=== PATIENT | male | born 1945 | race Caucasian/White ===

== ENCOUNTER 2019-08-13 18:23 | Inpatient (IN) | payer MEDICARE, OTHER ==
[~2019-08-13] VITALS: Ht 170.2 cm; Wt 92.8 kg
--- OUTSIDE RECORDS SUMMARY | 2019-08-13 18:30 | XMS REPORT ---
Author Author [facility] Address Unknown Phone Unavailable Care Team Providers Care Tube Buffer Name Role Phone Vincent LEYVA Unavailable Unavailable STEVEN CHAPPELL Unavailable Unavailable Problems This patient has no known problems. Allergies, Adverse Reactions, Alerts This patient has no known allergies or adverse reactions. Medications This patient has no known medications. Encounters Start Date/Time End Date/Time Encounter Type Admission Type Attending Clinicians Care Facility Care Department Encounter ID 2019-07-30 14:35:00 2019-07-30 14:35:00 Outpatient [facility] [id number] Results Test Description Test Time Test Comments Text Results Atomic Results Result Comments POCT-GLUCOSE METER 2019-07-14 13:32:00 POC-GLUCOSE METER (BEAKER) (test iakb=2021) 104 mg/dL 70-110 : TESTED AT [address], [address]: Landscape Designer/Geriatric Nurse Practitioner [id number]=[id number] for YANNA PACK POCT-GLUCOSE [id number] 08:18:00* Test Item Value Reference Range Comments POC-GLUCOSE METER (BEAKER) (test rldy=5479) 101 mg/dL 70-110 : TESTED AT [address], [address]: Landscape Designer/Geriatric Nurse Practitioner [id number] for YANNA PACK CBC W/PLT COUNT & AUTO [id number] 06:10:00* Test Item Value Reference Range Comments WHITE BLOOD CELL COUNT (BEAKER) (test zqnm=097) 14.7 K/ L 3.5-10.5 RED BLOOD CELL COUNT (BEAKER) (test opok=302) 3.64 M/ L 4.63-6.08 HEMOGLOBIN (BEAKER) (test yviz=762) 11.2 GM/DL 13.7-17.5 HEMATOCRIT (BEAKER) (test ezwa=246) 34.1 % 40.1-51.0 MEAN CORPUSCULAR VOLUME (BEAKER) (test rsxa=802) 93.7 fL 79.0-92.2 MEAN CORPUSCULAR HEMOGLOBIN (BEAKER) (test iswi=089) 30.8 pg 25.7-32.2 MEAN CORPUSCULAR HEMOGLOBIN CONC (BEAKER) (test zdlg=448) 32.8 GM/DL 32.3-36.5 RED CELL DISTRIBUTION WIDTH (BEAKER) (test zxup=310) 12.7 % 11.6-14.4 PLATELET COUNT (BEAKER) (test vzrn=025) 175 K/CU MM 150-450 MEAN PLATELET VOLUME (BEAKER) (test ytrt=638) 12.4 fL 9.4-12.4 NUCLEATED RED BLOOD CELLS (BEAKER) (test agtp=868) 0 /100 WBC 0-0 NEUTROPHILS RELATIVE PERCENT (BEAKER) (test xgbe=733) 89 % LYMPHOCYTES RELATIVE PERCENT (BEAKER) (test wpgr=510) 5 % MONOCYTES RELATIVE PERCENT (BEAKER) (test lmas=194) 4 % EOSINOPHILS RELATIVE PERCENT (BEAKER) (test upzi=887) 0 % BASOPHILS RELATIVE PERCENT (BEAKER) (test iloi=929) 0 % NEUTROPHILS ABSOLUTE COUNT (BEAKER) (test gjmk=322) 13.09 K/ L 1.78-5.38 LYMPHOCYTES ABSOLUTE COUNT (BEAKER) (test knai=515) 0.76 K/ L 1.32-3.57 MONOCYTES ABSOLUTE COUNT (BEAKER) (test ylfv=438) 0.53 K/ L 0.30-0.82 EOSINOPHILS ABSOLUTE COUNT (BEAKER) (test etxm=292) 0.00 K/ L 0.04-0.54 BASOPHILS ABSOLUTE COUNT (BEAKER) (test czel=430) 0.01 K/ L 0.01-0.08 IMMATURE GRANULOCYTES-RELATIVE PERCENT (BEAKER) (test pfkt=6230) 2 % 0-1 [id number] 05:47:00* Test Item Value Reference Range Comments MAGNESIUM (BEAKER) (test hgpq=692) 2.1 mg/dL 1.6-2.6 BASIC METABOLIC [id number] 05:47:00* Test Item Value Reference Range Comments SODIUM (BEAKER) (test xpxk=744) 138 meq/L 136-145 POTASSIUM (BEAKER) (test psan=820) 5.0 meq/L 3.5-5.1 CHLORIDE (BEAKER) (test irmt=830) 106 meq/L 98-107 CO2 (BEAKER) (test qgzk=293) 25 meq/L 22-29 BLOOD UREA NITROGEN (BEAKER) (test qrmr=624) 34 mg/dL 7-21 CREATININE (BEAKER) (test qxdi=929) 1.25 mg/dL 0.57-1.25 GLUCOSE RANDOM (BEAKER) (test daiq=850) 131 mg/dL 70-105 CALCIUM (BEAKER) (test xplm=726) 8.2 mg/dL 8.4-10.2 EGFR (BEAKER) (test uyad=6352) 57 mL/min/1.73 sq m ESTIMATED GFR IS NOT ACCURATE CREATININE CLEARANCE IN PREDICTING GLOMERULAR FILTRATION RATE. ESTIMATED GFR IS NOT APPLICABLE FOR DIALYSIS PATIENTS. POCT-GLUCOSE [id number] 22:26:00* Test Item Value Reference Range Comments POC-GLUCOSE METER (BEAKER) (test jmfr=3394) 154 mg/dL 70-110 : TESTED AT [address], [address]: Landscape Designer/Geriatric Nurse Practitioner [id number] for Msibi, Mncedisi POCT-GLUCOSE [id number] 18:10:00* Test Item Value Reference Range Comments POC-GLUCOSE METER (BEAKER) (test hnqt=0271) 113 mg/dL 70-110 : TESTED AT [address], [address]: Landscape Designer/Geriatric Nurse Practitioner [id number] for Ralph, Julia POCT-GLUCOSE [id number] 12:59:00* Test Item Value Reference Range Comments POC-GLUCOSE METER (BEAKER) (test rccz=7544) 128 mg/dL 70-110 : TESTED AT [address], [address]: Landscape Designer/Geriatric Nurse Practitioner PB=[id number] for Ralph, Julia POCT-GLUCOSE [id number] 08:03:00* Test Item Value Reference Range Comments POC-GLUCOSE METER (BEAKER) (test ouki=0510) 126 mg/dL 70-110 : TESTED AT [address], [address]: Landscape Designer/Geriatric Nurse Practitioner VM=[id number] for Ralph, Julia [id number] 05:39:00* Test Item Value Reference Range Comments POTASSIUM (BEAKER) (test mtpw=766) 5.2 meq/L 3.5-5.1 [id number] 05:39:00* Test Item Value Reference Range Comments MAGNESIUM (BEAKER) (test jftv=281) 2.1 mg/dL 1.6-2.6 RepeatBASIC METABOLIC [id number] 05:39:00* Test Item Value Reference Range Comments SODIUM (BEAKER) (test zjxg=770) 138 meq/L 136-145 POTASSIUM (BEAKER) (test sqnt=410) 5.2 meq/L 3.5-5.1 CHLORIDE (BEAKER) (test mkar=519) 106 meq/L 98-107 CO2 (BEAKER) (test ouaj=969) 27 meq/L 22-29 BLOOD UREA NITROGEN (BEAKER) (test bkti=167) 38 mg/dL 7-21 CREATININE (BEAKER) (test fsgc=527) 1.26 mg/dL 0.57-1.25 GLUCOSE RANDOM (BEAKER) (test czel=480) 128 mg/dL 70-105 CALCIUM (BEAKER) (test dewy=601) 8.3 mg/dL 8.4-10.2 EGFR (BEAKER) (test xles=1215) 56 mL/min/1.73 sq m ESTIMATED GFR IS NOT ACCURATE CREATININE CLEARANCE IN PREDICTING GLOMERULAR FILTRATION RATE. ESTIMATED GFR IS NOT APPLICABLE FOR DIALYSIS PATIENTS. RepeatCBC W/PLT COUNT & AUTO [id number] 05:07:00* Test Item Value Reference Range Comments WHITE BLOOD CELL COUNT (BEAKER) (test wgmb=449) 14.5 K/ L 3.5-10.5 RED BLOOD CELL COUNT (BEAKER) (test qcmq=445) 3.49 M/ L 4.63-6.08 HEMOGLOBIN (BEAKER) (test mykv=494) 10.9 GM/DL 13.7-17.5 HEMATOCRIT (BEAKER) (test ggxl=916) 33.4 % 40.1-51.0 MEAN CORPUSCULAR VOLUME (BEAKER) (test ltyj=099) 95.7 fL 79.0-92.2 MEAN CORPUSCULAR HEMOGLOBIN (BEAKER) (test pzxy=691) 31.2 pg 25.7-32.2 MEAN CORPUSCULAR HEMOGLOBIN CONC (BEAKER) (test nbpn=934) 32.6 GM/DL 32.3-36.5 RED CELL DISTRIBUTION WIDTH (BEAKER) (test fhmw=375) 12.9 % 11.6-14.4 PLATELET COUNT (BEAKER) (test romz=071) 162 K/CU MM 150-450 MEAN PLATELET VOLUME (BEAKER) (test fsky=858) 12.3 fL 9.4-12.4 NUCLEATED RED BLOOD CELLS (BEAKER) (test dqll=466) 0 /100 WBC 0-0 NEUTROPHILS RELATIVE PERCENT (BEAKER) (test shvl=015) 89 % LYMPHOCYTES RELATIVE PERCENT (BEAKER) (test hbjt=921) 5 % MONOCYTES RELATIVE PERCENT (BEAKER) (test abhr=242) 4 % EOSINOPHILS RELATIVE PERCENT (BEAKER) (test zltm=745) 0 % BASOPHILS RELATIVE PERCENT (BEAKER) (test ywbl=942) 0 % NEUTROPHILS ABSOLUTE COUNT (BEAKER) (test scsr=176) 12.88 K/ L 1.78-5.38 LYMPHOCYTES ABSOLUTE COUNT (BEAKER) (test vtcu=096) 0.76 K/ L 1.32-3.57 MONOCYTES ABSOLUTE COUNT (BEAKER) (test qlfv=833) 0.58 K/ L 0.30-0.82 EOSINOPHILS ABSOLUTE COUNT (BEAKER) (test qiel=378) 0.00 K/ L 0.04-0.54 BASOPHILS ABSOLUTE COUNT (BEAKER) (test lfbz=037) 0.02 K/ L 0.01-0.08 IMMATURE GRANULOCYTES-RELATIVE PERCENT (BEAKER) (test qvxf=6212) 2 % 0-1 POCT-GLUCOSE [id number] 03:30:00* Test Item Value Reference Range Comments POC-GLUCOSE METER (BEAKER) (test iysx=5142) 124 mg/dL 70-110 : TESTED AT [facility] [address] [facility], [address]: Landscape Designer/Geriatric Nurse Practitioner ZB=[id number] for SONYA ALCANTAR POCT-GLUCOSE [id number] 17:37:00* Test Item Value Reference Range Comments POC-GLUCOSE METER (BEAKER) (test scen=5466) 131 mg/dL 70-110 : TESTED AT [facility] [address] [facility], [address]: Landscape Designer/Geriatric Nurse Practitioner [id number] for Julia Rosas POCT-GLUCOSE [id number] 12:27:00* Test Item Value Reference Range Comments POC-GLUCOSE METER (BEAKER) (test jxpm=9801) 117 mg/dL 70-110 : TESTED AT [facility] [address] [facility], [address]: Landscape Designer/Geriatric Nurse Practitioner [id number] for Julia Rosas RAD, CHEST, 1 VIEW, NON [id number] 10:39:00Reason for exam:->pneumoniaShould this be performed at the bedside?->YesFINAL REPORT CLINICAL HISTORY: pneumonia TECHNIQUE: 1 view of the chest. COMPARISON: 07/06/2019 IMPRESSION: Diffuse left asymmetric interstitial lung opacities are similar appearing. There is no new lobar consolidation or significant pleural fluid. The cardiomediastinal silhouette is within normal limits for size. Signed: Roxann Noeport Verified Date/Time: 07/12/2019 10:39:42 Reading Location: [facility] Radiology Reading Room -GLUCOSE [id number] 09:07:00* Test Item Value Reference Range Comments POC-GLUCOSE METER (BEAKER) (test ksns=4337) 114 mg/dL 70-110 : TESTED AT [facility] [address] [facility], [address]: Landscape Designer/Geriatric Nurse Practitioner [id number] for Julia Rosas [id number] 07:29:00* Test Item Value Reference Range Comments MAGNESIUM (BEAKER) (test oznz=018) 2.2 mg/dL 1.6-2.6 BASIC METABOLIC [id number] 07:29:00* Test Item Value Reference Range Comments SODIUM (BEAKER) (test puya=394) 140 meq/L 136-145 POTASSIUM (BEAKER) (test btzh=698) 5.5 meq/L 3.5-5.1 CHLORIDE (BEAKER) (test htks=377) 108 meq/L 98-107 CO2 (BEAKER) (test tzsm=876) 26 meq/L 22-29 BLOOD UREA NITROGEN (BEAKER) (test upxq=345) 39 mg/dL 7-21 CREATININE (BEAKER) (test pmft=230) 1.24 mg/dL 0.57-1.25 GLUCOSE RANDOM (BEAKER) (test qacs=807) 115 mg/dL 70-105 CALCIUM (BEAKER) (test frbr=472) 8.5 mg/dL 8.4-10.2 EGFR (BEAKER) (test smin=0226) 57 mL/min/1.73 sq m ESTIMATED GFR IS NOT ACCURATE CREATININE CLEARANCE IN PREDICTING GLOMERULAR FILTRATION RATE. ESTIMATED GFR IS NOT APPLICABLE FOR DIALYSIS PATIENTS. CBC W/PLT COUNT & AUTO [id number] 06:57:00* Test Item Value Reference Range Comments WHITE BLOOD CELL COUNT (BEAKER) (test pcsb=943) 18.3 K/ L 3.5-10.5 RED BLOOD CELL COUNT (BEAKER) (test siga=066) 3.58 M/ L 4.63-6.08 HEMOGLOBIN (BEAKER) (test jriz=594) 11.1 GM/DL 13.7-17.5 HEMATOCRIT (BEAKER) (test fvcj=767) 35.1 % 40.1-51.0 MEAN CORPUSCULAR VOLUME (BEAKER) (test afqt=406) 98.0 fL 79.0-92.2 MEAN CORPUSCULAR HEMOGLOBIN (BEAKER) (test dusp=364) 31.0 pg 25.7-32.2 MEAN CORPUSCULAR HEMOGLOBIN CONC (BEAKER) (test xfhj=942) 31.6 GM/DL 32.3-36.5 RED CELL DISTRIBUTION WIDTH (BEAKER) (test tebo=183) 12.8 % 11.6-14.4 PLATELET COUNT (BEAKER) (test ksml=916) 149 K/CU MM 150-450 MEAN PLATELET VOLUME (BEAKER) (test whjp=451) 12.5 fL 9.4-12.4 NUCLEATED RED BLOOD CELLS (BEAKER) (test zkxh=336) 0 /100 WBC 0-0 NEUTROPHILS RELATIVE PERCENT (BEAKER) (test nfzu=114) 88 % LYMPHOCYTES RELATIVE PERCENT (BEAKER) (test jais=033) 6 % MONOCYTES RELATIVE PERCENT (BEAKER) (test mcpi=265) 5 % EOSINOPHILS RELATIVE PERCENT (BEAKER) (test dbua=042) 0 % BASOPHILS RELATIVE PERCENT (BEAKER) (test lqsq=339) 0 % NEUTROPHILS ABSOLUTE COUNT (BEAKER) (test eyzy=570) 16.01 K/ L 1.78-5.38 LYMPHOCYTES ABSOLUTE COUNT (BEAKER) (test pocj=924) 1.10 K/ L 1.32-3.57 MONOCYTES ABSOLUTE COUNT (BEAKER) (test ljyj=058) 0.82 K/ L 0.30-0.82 EOSINOPHILS ABSOLUTE COUNT (BEAKER) (test caab=701) 0.00 K/ L 0.04-0.54 BASOPHILS ABSOLUTE COUNT (BEAKER) (test vivu=171) 0.03 K/ L 0.01-0.08 IMMATURE GRANULOCYTES-RELATIVE PERCENT (BEAKER) (test pxer=5410) 2 % 0-1 POCT-GLUCOSE [id number] 22:36:00* Test Item Value Reference Range Comments POC-GLUCOSE METER (BEAKER) (test rtvg=4867) 130 mg/dL 70-110 : TESTED AT [address], [address]: Landscape Designer/Geriatric Nurse Practitioner KP=[id number] for LOUISE SHEETS POCT-GLUCOSE [id number] 18:30:00* Test Item Value Reference Range Comments POC-GLUCOSE METER (BEAKER) (test cqkv=3250) 124 mg/dL 70-110 : TESTED AT [address], [address]: Landscape Designer/Geriatric Nurse Practitioner [id number] for EUNICE CLINTON POCT-GLUCOSE [id number] 11:35:00* Test Item Value Reference Range Comments POC-GLUCOSE METER (BEAKER) (test ufeu=5968) 140 mg/dL 70-110 : TESTED AT [address], [address]: Landscape Designer/Geriatric Nurse Practitioner QH=[id number] for EUNICE CLINTON POCT-GLUCOSE [id number] 08:20:00* Test Item Value Reference Range Comments POC-GLUCOSE METER (BEAKER) (test iqiy=1983) 113 mg/dL 70-110 : TESTED AT [address], [address]: Landscape Designer/Geriatric Nurse Practitioner [id number] for EUNICE CLINTON [id number] 04:10:00* Test Item Value Reference Range Comments MAGNESIUM (BEAKER) (test wjdd=179) 2.2 mg/dL 1.6-2.6 BASIC METABOLIC [id number] 04:10:00* Test Item Value Reference Range Comments SODIUM (BEAKER) (test dlav=697) 140 meq/L 136-145 POTASSIUM (BEAKER) (test rklk=306) 4.8 meq/L 3.5-5.1 CHLORIDE (BEAKER) (test gnph=936) 108 meq/L 98-107 CO2 (BEAKER) (test lxgv=171) 25 meq/L 22-29 BLOOD UREA NITROGEN (BEAKER) (test zseb=594) 37 mg/dL 7-21 CREATININE (BEAKER) (test kjhh=946) 1.32 mg/dL 0.57-1.25 GLUCOSE RANDOM (BEAKER) (test xhuq=307) 127 mg/dL 70-105 CALCIUM (BEAKER) (test splf=860) 8.5 mg/dL 8.4-10.2 EGFR (BEAKER) (test hcha=3878) 53 mL/min/1.73 sq m ESTIMATED GFR IS NOT ACCURATE CREATININE CLEARANCE IN PREDICTING GLOMERULAR FILTRATION RATE. ESTIMATED GFR IS NOT APPLICABLE FOR DIALYSIS PATIENTS. CBC W/PLT COUNT & AUTO [id number] 03:27:00* Test Item Value Reference Range Comments WHITE BLOOD CELL COUNT (BEAKER) (test aicu=257) 15.7 K/ L 3.5-10.5 RED BLOOD CELL COUNT (BEAKER) (test mctm=029) 3.54 M/ L 4.63-6.08 HEMOGLOBIN (BEAKER) (test bquz=703) 11.1 GM/DL 13.7-17.5 HEMATOCRIT (BEAKER) (test fkma=647) 35.1 % 40.1-51.0 MEAN CORPUSCULAR VOLUME (BEAKER) (test mjwi=577) 99.2 fL 79.0-92.2 MEAN CORPUSCULAR HEMOGLOBIN (BEAKER) (test nlut=216) 31.4 pg 25.7-32.2 MEAN CORPUSCULAR HEMOGLOBIN CONC (BEAKER) (test iqpl=435) 31.6 GM/DL 32.3-36.5 RED CELL DISTRIBUTION WIDTH (BEAKER) (test rkjj=680) 12.9 % 11.6-14.4 PLATELET COUNT (BEAKER) (test peaz=677) 139 K/CU MM 150-450 MEAN PLATELET VOLUME (BEAKER) (test ppgj=481) 12.3 fL 9.4-12.4 NUCLEATED RED BLOOD CELLS (BEAKER) (test jznp=296) 0 /100 WBC 0-0 NEUTROPHILS RELATIVE PERCENT (BEAKER) (test orah=362) 91 % LYMPHOCYTES RELATIVE PERCENT (BEAKER) (test urvg=105) 5 % MONOCYTES RELATIVE PERCENT (BEAKER) (test gyht=489) 3 % EOSINOPHILS RELATIVE PERCENT (BEAKER) (test xmlj=752) 0 % BASOPHILS RELATIVE PERCENT (BEAKER) (test oppf=295) 0 % NEUTROPHILS ABSOLUTE COUNT (BEAKER) (test euqa=647) 14.24 K/ L 1.78-5.38 LYMPHOCYTES ABSOLUTE COUNT (BEAKER) (test guxo=798) 0.73 K/ L 1.32-3.57 MONOCYTES ABSOLUTE COUNT (BEAKER) (test jyhd=697) 0.39 K/ L 0.30-0.82 EOSINOPHILS ABSOLUTE COUNT (BEAKER) (test wbjx=453) 0.00 K/ L 0.04-0.54 BASOPHILS ABSOLUTE COUNT (BEAKER) (test jdrd=801) 0.03 K/ L 0.01-0.08 IMMATURE GRANULOCYTES-RELATIVE PERCENT (BEAKER) (test jslk=6734) 2 % 0-1 POCT-GLUCOSE [id number] 20:56:00* Test Item Value Reference Range Comments POC-GLUCOSE METER (BEAKER) (test qjgj=0725) 165 mg/dL 70-110 : TESTED AT [address], [address]: Landscape Designer/Geriatric Nurse Practitioner FO=[id number] for SONYA ALCANTAR POCT-GLUCOSE [id number] 20:55:00* Test Item Value Reference Range Comments POC-GLUCOSE METER (BEAKER) (test lnmv=3058) 122 mg/dL 70-110 : TESTED AT [address], [address]: Landscape Designer/Geriatric Nurse Practitioner TA=[id number] for GLASGOW, VINCE POCT-GLUCOSE [id number] 13:10:00* Test Item Value Reference Range Comments POC-GLUCOSE METER (BEAKER) (test lenk=0210) 138 mg/dL 70-110 : TESTED AT [address], [address]: Landscape Designer/Geriatric Nurse Practitioner IR=[id number] for GLASGOW, VINCE POCT-GLUCOSE [id number] 10:57:00* Test Item Value Reference Range Comments POC-GLUCOSE METER (BEAKER) (test cylz=5853) 113 mg/dL 70-110 : TESTED AT [address], [address]: Landscape Designer/Geriatric Nurse Practitioner [id number] for VINCE GLASGOW CBC W/PLT COUNT & AUTO [id number] 03:14:00* Test Item Value Reference Range Comments WHITE BLOOD CELL COUNT (BEAKER) (test kumy=597) 15.7 K/ L 3.5-10.5 RED BLOOD CELL COUNT (BEAKER) (test dxpo=738) 3.57 M/ L 4.63-6.08 HEMOGLOBIN (BEAKER) (test mpah=720) 10.9 GM/DL 13.7-17.5 HEMATOCRIT (BEAKER) (test limk=559) 34.4 % 40.1-51.0 MEAN CORPUSCULAR VOLUME (BEAKER) (test xufx=669) 96.4 fL 79.0-92.2 MEAN CORPUSCULAR HEMOGLOBIN (BEAKER) (test ijyq=103) 30.5 pg 25.7-32.2 MEAN CORPUSCULAR HEMOGLOBIN CONC (BEAKER) (test oooh=587) 31.7 GM/DL 32.3-36.5 RED CELL DISTRIBUTION WIDTH (BEAKER) (test xtlf=857) 12.9 % 11.6-14.4 PLATELET COUNT (BEAKER) (test njsy=655) 129 K/CU MM 150-450 MEAN PLATELET VOLUME (BEAKER) (test kohu=260) 12.1 fL 9.4-12.4 NUCLEATED RED BLOOD CELLS (BEAKER) (test icvz=796) 0 /100 WBC 0-0 NEUTROPHILS RELATIVE PERCENT (BEAKER) (test dyhx=207) 91 % LYMPHOCYTES RELATIVE PERCENT (BEAKER) (test njkw=908) 5 % MONOCYTES RELATIVE PERCENT (BEAKER) (test virv=022) 4 % EOSINOPHILS RELATIVE PERCENT (BEAKER) (test bpbw=752) 0 % BASOPHILS RELATIVE PERCENT (BEAKER) (test bggd=106) 0 % NEUTROPHILS ABSOLUTE COUNT (BEAKER) (test myma=346) 14.20 K/ L 1.78-5.38 LYMPHOCYTES ABSOLUTE COUNT (BEAKER) (test xmky=643) 0.71 K/ L 1.32-3.57 MONOCYTES ABSOLUTE COUNT (BEAKER) (test dhhi=538) 0.57 K/ L 0.30-0.82 EOSINOPHILS ABSOLUTE COUNT (BEAKER) (test vjut=806) 0.00 K/ L 0.04-0.54 BASOPHILS ABSOLUTE COUNT (BEAKER) (test iuna=316) 0.02 K/ L 0.01-0.08 IMMATURE GRANULOCYTES-RELATIVE PERCENT (BEAKER) (test ocod=0773) 1 % 0-1 [id number] 03:13:00* Test Item Value Reference Range Comments MAGNESIUM (BEAKER) (test dygi=128) 2.6 mg/dL 1.6-2.6 BASIC METABOLIC [id number] 03:13:00* Test Item Value Reference Range Comments SODIUM (BEAKER) (test rqqe=764) 137 meq/L 136-145 POTASSIUM (BEAKER) (test orgv=295) 4.6 meq/L 3.5-5.1 CHLORIDE (BEAKER) (test lsei=008) 105 meq/L 98-107 CO2 (BEAKER) (test koqb=740) 24 meq/L 22-29 BLOOD UREA NITROGEN (BEAKER) (test wwok=536) 39 mg/dL 7-21 CREATININE (BEAKER) (test wnpv=167) 1.43 mg/dL 0.57-1.25 GLUCOSE RANDOM (BEAKER) (test rvzj=647) 130 mg/dL 70-105 CALCIUM (BEAKER) (test evpq=447) 8.6 mg/dL 8.4-10.2 EGFR (BEAKER) (test dmzb=5300) 49 mL/min/1.73 sq m ESTIMATED GFR IS NOT ACCURATE CREATININE CLEARANCE IN PREDICTING GLOMERULAR FILTRATION RATE. ESTIMATED GFR IS NOT APPLICABLE FOR DIALYSIS PATIENTS. POCT-GLUCOSE [id number] 21:25:00* Test Item Value Reference Range Comments POC-GLUCOSE METER (BEAKER) (test xgbg=4773) 140 mg/dL 70-110 : TESTED AT [facility] [address] [facility], [address]: Landscape Designer/Geriatric Nurse Practitioner [id number] for Talat, Jordeni POCT-GLUCOSE [id number] 18:52:00* Test Item Value Reference Range Comments POC-GLUCOSE METER (BEAKER) (test odug=5607) 102 mg/dL 70-110 : TESTED AT [facility] [address] [facility], [address]: Landscape Designer/Geriatric Nurse Practitioner BP=[id number] for Julia Rosas POCT-GLUCOSE [id number] 18:44:00* Test Item Value Reference Range Comments POC-GLUCOSE METER (BEAKER) (test irzf=9668) 131 mg/dL 70-110 : TESTED AT [facility] [address] [facility], [address]: Landscape Designer/Geriatric Nurse Practitioner [id number] for Coleman Perry [id number] 07:33:00* Test Item Value Reference Range Comments MAGNESIUM (BEAKER) (test lrdp=044) 2.7 mg/dL 1.6-2.6 Specimen slightly hemolyzed BASIC METABOLIC [id number] 07:33:00* Test Item Value Reference Range Comments SODIUM (BEAKER) (test bmae=092) 140 meq/L 136-145 POTASSIUM (BEAKER) (test lvav=587) 4.7 meq/L 3.5-5.1 Specimen slightly hemolyzed CHLORIDE (BEAKER) (test zbqs=422) 106 meq/L 98-107 CO2 (BEAKER) (test kjsx=114) 29 meq/L 22-29 BLOOD UREA NITROGEN (BEAKER) (test pduu=612) 42 mg/dL 7-21 CREATININE (BEAKER) (test rzpo=209) 1.44 mg/dL 0.57-1.25 Specimen slightly hemolyzed GLUCOSE RANDOM (BEAKER) (test nbvd=640) 129 mg/dL 70-105 CALCIUM (BEAKER) (test nqgq=143) 8.4 mg/dL 8.4-10.2 EGFR (BEAKER) (test kaed=3995) 48 mL/min/1.73 sq m ESTIMATED GFR IS NOT ACCURATE CREATININE CLEARANCE IN PREDICTING GLOMERULAR FILTRATION RATE. ESTIMATED GFR IS NOT APPLICABLE FOR DIALYSIS PATIENTS. [id number] 06:21:00* Test Item Value Reference Range Comments PARTIAL THROMBOPLASTIN TIME (BEAKER) (test smoa=540) 82.4 seconds 22.5-36.0 CBC W/PLT COUNT & AUTO [id number] 06:10:00* Test Item Value Reference Range Comments WHITE BLOOD CELL COUNT (BEAKER) (test rbua=005) 11.5 K/ L 3.5-10.5 RED BLOOD CELL COUNT (BEAKER) (test qgtf=945) 3.34 M/ L 4.63-6.08 HEMOGLOBIN (BEAKER) (test ymis=013) 10.1 GM/DL 13.7-17.5 HEMATOCRIT (BEAKER) (test bxjl=567) 31.4 % 40.1-51.0 MEAN CORPUSCULAR VOLUME (BEAKER) (test ojoa=494) 94.0 fL 79.0-92.2 MEAN CORPUSCULAR HEMOGLOBIN (BEAKER) (test ayps=354) 30.2 pg 25.7-32.2 MEAN CORPUSCULAR HEMOGLOBIN CONC (BEAKER) (test ghzz=534) 32.2 GM/DL 32.3-36.5 RED CELL DISTRIBUTION WIDTH (BEAKER) (test tjdj=437) 13.1 % 11.6-14.4 PLATELET COUNT (BEAKER) (test llup=154) 116 K/CU MM 150-450 MEAN PLATELET VOLUME (BEAKER) (test uwmw=327) 11.9 fL 9.4-12.4 NUCLEATED RED BLOOD CELLS (BEAKER) (test aiyt=111) 0 /100 WBC 0-0 NEUTROPHILS RELATIVE PERCENT (BEAKER) (test pzti=322) 90 % LYMPHOCYTES RELATIVE PERCENT (BEAKER) (test cwnf=480) 5 % MONOCYTES RELATIVE PERCENT (BEAKER) (test rrst=288) 5 % EOSINOPHILS RELATIVE PERCENT (BEAKER) (test dubs=233) 0 % BASOPHILS RELATIVE PERCENT (BEAKER) (test ampo=876) 0 % NEUTROPHILS ABSOLUTE COUNT (BEAKER) (test mrkp=766) 10.32 K/ L 1.78-5.38 LYMPHOCYTES ABSOLUTE COUNT (BEAKER) (test ubcz=955) 0.54 K/ L 1.32-3.57 MONOCYTES ABSOLUTE COUNT (BEAKER) (test kcdz=638) 0.54 K/ L 0.30-0.82 EOSINOPHILS ABSOLUTE COUNT (BEAKER) (test vqil=302) 0.00 K/ L 0.04-0.54 BASOPHILS ABSOLUTE COUNT (BEAKER) (test djun=916) 0.01 K/ L 0.01-0.08 IMMATURE GRANULOCYTES-RELATIVE PERCENT (BEAKER) (test vwtj=2226) 1 % 0-1 POCT-GLUCOSE [id number] 21:12:00* Test Item Value Reference Range Comments POC-GLUCOSE METER (BEAKER) (test glfu=9763) 172 mg/dL 70-110 : Pt. refused rpt tst: Pt. on IV insulin: TESTED AT [address], [address]: Landscape Designer/Geriatric Nurse Practitioner [id number] for TYRA HERRERA POCT-GLUCOSE [id number] 18:38:00* Test Item Value Reference Range Comments POC-GLUCOSE METER (BEAKER) (test phxg=6532) 161 mg/dL 70-110 : TESTED AT [facility] [address] [facility], [address]: Landscape Designer/Geriatric Nurse Practitioner [id number] for Yvonne Mccoy [id number] 04:58:00* Test Item Value Reference Range Comments MAGNESIUM (BEAKER) (test rdgf=172) 2.7 mg/dL 1.6-2.6 BASIC METABOLIC [id number] 04:58:00* Test Item Value Reference Range Comments SODIUM (BEAKER) (test hnka=154) 141 meq/L 136-145 POTASSIUM (BEAKER) (test zdnp=230) 4.4 meq/L 3.5-5.1 CHLORIDE (BEAKER) (test tjwy=759) 106 meq/L 98-107 CO2 (BEAKER) (test drrg=645) 29 meq/L 22-29 BLOOD UREA NITROGEN (BEAKER) (test prqt=832) 48 mg/dL 7-21 CREATININE (BEAKER) (test ttre=826) 1.65 mg/dL 0.57-1.25 GLUCOSE RANDOM (BEAKER) (test gdvm=973) 140 mg/dL 70-105 CALCIUM (BEAKER) (test fxco=985) 8.6 mg/dL 8.4-10.2 EGFR (BEAKER) (test zjky=5243) 41 mL/min/1.73 sq m ESTIMATED GFR IS NOT ACCURATE CREATININE CLEARANCE IN PREDICTING GLOMERULAR FILTRATION RATE. ESTIMATED GFR IS NOT APPLICABLE FOR DIALYSIS PATIENTS. CBC W/PLT COUNT & AUTO [id number] 04:54:00* Test Item Value Reference Range Comments WHITE BLOOD CELL COUNT (BEAKER) (test tomf=758) 12.7 K/ L 3.5-10.5 RED BLOOD CELL COUNT (BEAKER) (test avoo=667) 3.27 M/ L 4.63-6.08 HEMOGLOBIN (BEAKER) (test yrnd=463) 10.2 GM/DL 13.7-17.5 HEMATOCRIT (BEAKER) (test ghqd=985) 30.7 % 40.1-51.0 MEAN CORPUSCULAR VOLUME (BEAKER) (test rdqs=092) 93.9 fL 79.0-92.2 MEAN CORPUSCULAR HEMOGLOBIN (BEAKER) (test xclz=563) 31.2 pg 25.7-32.2 MEAN CORPUSCULAR HEMOGLOBIN CONC (BEAKER) (test sjdq=012) 33.2 GM/DL 32.3-36.5 RED CELL DISTRIBUTION WIDTH (BEAKER) (test ddld=284) 13.2 % 11.6-14.4 PLATELET COUNT (BEAKER) (test wrae=699) 112 K/CU MM 150-450 MEAN PLATELET VOLUME (BEAKER) (test ftxz=758) 12.1 fL 9.4-12.4 NUCLEATED RED BLOOD CELLS (BEAKER) (test bwll=063) 0 /100 WBC 0-0 NEUTROPHILS RELATIVE PERCENT (BEAKER) (test zekc=964) 91 % LYMPHOCYTES RELATIVE PERCENT (BEAKER) (test mtdl=064) 4 % MONOCYTES RELATIVE PERCENT (BEAKER) (test wzun=585) 5 % EOSINOPHILS RELATIVE PERCENT (BEAKER) (test mssg=220) 0 % BASOPHILS RELATIVE PERCENT (BEAKER) (test wury=856) 0 % NEUTROPHILS ABSOLUTE COUNT (BEAKER) (test inza=969) 11.50 K/ L 1.78-5.38 LYMPHOCYTES ABSOLUTE COUNT (BEAKER) (test gefj=219) 0.52 K/ L 1.32-3.57 MONOCYTES ABSOLUTE COUNT (BEAKER) (test zrlv=916) 0.58 K/ L 0.30-0.82 EOSINOPHILS ABSOLUTE COUNT (BEAKER) (test lujs=652) 0.00 K/ L 0.04-0.54 BASOPHILS ABSOLUTE COUNT (BEAKER) (test zbbz=219) 0.00 K/ L 0.01-0.08 IMMATURE GRANULOCYTES-RELATIVE PERCENT (BEAKER) (test zcsh=3271) 1 % 0-1 [id number] 04:49:00* Test Item Value Reference Range Comments PARTIAL THROMBOPLASTIN TIME (BEAKER) (test pxwt=275) 81.0 seconds 22.5-36.0 BLOOD [id number] 02:01:00* Test Item Value Reference Range Comments CULTURE (BEAKER) (test yrha=8002) No growth in 5 days BLOOD [id number] 02:01:00* Test Item Value Reference Range Comments CULTURE (BEAKER) (test yplw=3458) No growth in 5 days [id number] 05:13:00* Test Item Value Reference Range Comments PARTIAL THROMBOPLASTIN TIME (BEAKER) (test dalw=405) 69.7 seconds 22.5-36.0 CBC W/PLT COUNT & AUTO [id number] 05:08:00* Test Item Value Reference Range Comments WHITE BLOOD CELL COUNT (BEAKER) (test zeku=676) 13.0 K/ L 3.5-10.5 RED BLOOD CELL COUNT (BEAKER) (test xwpm=928) 3.18 M/ L 4.63-6.08 HEMOGLOBIN (BEAKER) (test ldug=108) 10.0 GM/DL 13.7-17.5 HEMATOCRIT (BEAKER) (test wxgu=096) 29.5 % 40.1-51.0 MEAN CORPUSCULAR VOLUME (BEAKER) (test odqn=755) 92.8 fL 79.0-92.2 MEAN CORPUSCULAR HEMOGLOBIN (BEAKER) (test uovc=185) 31.4 pg 25.7-32.2 MEAN CORPUSCULAR HEMOGLOBIN CONC (BEAKER) (test rlzb=162) 33.9 GM/DL 32.3-36.5 RED CELL DISTRIBUTION WIDTH (BEAKER) (test bsuu=396) 13.2 % 11.6-14.4 PLATELET COUNT (BEAKER) (test oade=909) 121 K/CU MM 150-450 MEAN PLATELET VOLUME (BEAKER) (test mzpd=070) 11.9 fL 9.4-12.4 NUCLEATED RED BLOOD CELLS (BEAKER) (test juji=373) 0 /100 WBC 0-0 NEUTROPHILS RELATIVE PERCENT (BEAKER) (test dcxh=125) 91 % LYMPHOCYTES RELATIVE PERCENT (BEAKER) (test pvyi=707) 4 % MONOCYTES RELATIVE PERCENT (BEAKER) (test zojf=755) 5 % EOSINOPHILS RELATIVE PERCENT (BEAKER) (test opnx=803) 0 % BASOPHILS RELATIVE PERCENT (BEAKER) (test nosj=389) 0 % NEUTROPHILS ABSOLUTE COUNT (BEAKER) (test hmme=966) 11.87 K/ L 1.78-5.38 LYMPHOCYTES ABSOLUTE COUNT (BEAKER) (test njmq=559) 0.47 K/ L 1.32-3.57 MONOCYTES ABSOLUTE COUNT (BEAKER) (test zexc=870) 0.58 K/ L 0.30-0.82 EOSINOPHILS ABSOLUTE COUNT (BEAKER) (test lgeq=389) 0.00 K/ L 0.04-0.54 BASOPHILS ABSOLUTE COUNT (BEAKER) (test joob=935) 0.01 K/ L 0.01-0.08 IMMATURE GRANULOCYTES-RELATIVE PERCENT (BEAKER) (test oeqo=8184) 1 % 0-1 [id number] 05:04:00* Test Item Value Reference Range Comments MAGNESIUM (BEAKER) (test zobq=106) 2.8 mg/dL 1.6-2.6 Specimen slightly hemolyzed BASIC METABOLIC [id number] 05:04:00* Test Item Value Reference Range Comments SODIUM (BEAKER) (test nprr=189) 140 meq/L 136-145 POTASSIUM (BEAKER) (test ngdw=419) 4.3 meq/L 3.5-5.1 Specimen slightly hemolyzed CHLORIDE (BEAKER) (test igco=077) 105 meq/L 98-107 CO2 (BEAKER) (test imdp=847) 29 meq/L 22-29 BLOOD UREA NITROGEN (BEAKER) (test djdk=762) 51 mg/dL 7-21 CREATININE (BEAKER) (test xjpu=721) 1.71 mg/dL 0.57-1.25 Specimen slightly hemolyzed GLUCOSE RANDOM (BEAKER) (test cypd=870) 173 mg/dL 70-105 CALCIUM (BEAKER) (test hekd=553) 8.8 mg/dL 8.4-10.2 EGFR (BEAKER) (test ugxl=3625) 40 mL/min/1.73 sq m ESTIMATED GFR IS NOT ACCURATE CREATININE CLEARANCE IN PREDICTING GLOMERULAR FILTRATION RATE. ESTIMATED GFR IS NOT APPLICABLE FOR DIALYSIS PATIENTS. [id number] 10:39:00* Test Item Value Reference Range Comments MAGNESIUM (BEAKER) (test cgnk=772) 2.8 mg/dL 1.6-2.6 Specimen slightly hemolyzed RAD, CHEST, 1 VIEW, NON [id number] 09:46:00Reason for exam:->sob/rule out pneumoniaShould this be performed at the bedside?->YesFINAL REPORT TECHNIQUE: Frontal chest radiograph dated 07/06/2019. CLINICAL HISTORY: SOB r/o PNA COMPARISON STUDY: Chest radiograph dated 07/05/2019 IMPRESSION:Stable bilateral airspace and interstitial lung disease. Pneumonia should be excluded clinically. No pleural effusion or pneumothorax. C ardiomediastinal silhouette is normal in size. No fracture. Signed: Kaylin Martinez MDReport Verified Date/Time: 07/06/2019 09:46:27 Reading Location: [facility] Reading Room Electronically signed by: TACOS MARTINEZ MD on 1 09:46 AM BASIC METABOLIC [id number] 07:02:00* Test Item Value Reference Range Comments SODIUM (BEAKER) (test fsnu=631) 137 meq/L 136-145 POTASSIUM (BEAKER) (test rdnq=735) 4.0 meq/L 3.5-5.1 CHLORIDE (BEAKER) (test cgdi=487) 101 meq/L 98-107 CO2 (BEAKER) (test hccy=302) 28 meq/L 22-29 BLOOD UREA NITROGEN (BEAKER) (test rjhh=709) 55 mg/dL 7-21 CREATININE (BEAKER) (test cspg=249) 1.95 mg/dL 0.57-1.25 GLUCOSE RANDOM (BEAKER) (test vawk=863) 150 mg/dL 70-105 CALCIUM (BEAKER) (test bpkk=706) 9.3 mg/dL 8.4-10.2 EGFR (BEAKER) (test sdsg=9835) 34 mL/min/1.73 sq m ESTIMATED GFR IS NOT ACCURATE CREATININE CLEARANCE IN PREDICTING GLOMERULAR FILTRATION RATE. ESTIMATED GFR IS NOT APPLICABLE FOR DIALYSIS PATIENTS. [id number] 06:53:00* Test Item Value Reference Range Comments PARTIAL THROMBOPLASTIN TIME (BEAKER) (test mhlx=588) 74.7 seconds 22.5-36.0 CBC W/PLT COUNT & AUTO [id number] 06:43:00* Test Item Value Reference Range Comments WHITE BLOOD CELL COUNT (BEAKER) (test wqfd=935) 16.5 K/ L 3.5-10.5 RED BLOOD CELL COUNT (BEAKER) (test ptnc=745) 3.58 M/ L 4.63-6.08 HEMOGLOBIN (BEAKER) (test uhlo=261) 11.0 GM/DL 13.7-17.5 HEMATOCRIT (BEAKER) (test xofu=096) 33.6 % 40.1-51.0 MEAN CORPUSCULAR VOLUME (BEAKER) (test fphz=660) 93.9 fL 79.0-92.2 MEAN CORPUSCULAR HEMOGLOBIN (BEAKER) (test iejm=123) 30.7 pg 25.7-32.2 MEAN CORPUSCULAR HEMOGLOBIN CONC (BEAKER) (test lvyp=569) 32.7 GM/DL 32.3-36.5 RED CELL DISTRIBUTION WIDTH (BEAKER) (test uuvb=872) 13.0 % 11.6-14.4 PLATELET COUNT (BEAKER) (test varl=097) 133 K/CU MM 150-450 MEAN PLATELET VOLUME (BEAKER) (test ggzb=259) 12.0 fL 9.4-12.4 NUCLEATED RED BLOOD CELLS (BEAKER) (test zswb=178) 0 /100 WBC 0-0 NEUTROPHILS RELATIVE PERCENT (BEAKER) (test svql=847) 91 % LYMPHOCYTES RELATIVE PERCENT (BEAKER) (test vslc=034) 4 % MONOCYTES RELATIVE PERCENT (BEAKER) (test fsrx=263) 4 % EOSINOPHILS RELATIVE PERCENT (BEAKER) (test yeep=796) 0 % BASOPHILS RELATIVE PERCENT (BEAKER) (test wbrd=341) 0 % NEUTROPHILS ABSOLUTE COUNT (BEAKER) (test sjva=161) 15.05 K/ L 1.78-5.38 LYMPHOCYTES ABSOLUTE COUNT (BEAKER) (test klen=649) 0.68 K/ L 1.32-3.57 MONOCYTES ABSOLUTE COUNT (BEAKER) (test jtkk=567) 0.70 K/ L 0.30-0.82 EOSINOPHILS ABSOLUTE COUNT (BEAKER) (test fqwq=831) 0.00 K/ L 0.04-0.54 BASOPHILS ABSOLUTE COUNT (BEAKER) (test enzh=059) 0.01 K/ L 0.01-0.08 IMMATURE GRANULOCYTES-RELATIVE PERCENT (BEAKER) (test trao=7151) 1 % 0-1 [id number] 00:20:00* Test Item Value Reference Range Comments PARTIAL THROMBOPLASTIN TIME (BEAKER) (test oppt=044) 78.6 seconds 22.5-36.0 [id number] 18:18:00* Test Item Value Reference Range Comments PARTIAL THROMBOPLASTIN TIME (BEAKER) (test ubag=360) 59.0 seconds 22.5-36.0 RHEUMATOID FACTOR AB, REFLEX TO [id number] 13:38:00* Test Item Value Reference Range Comments RHEUMATOID FACTOR (BEAKER) (test daxh=479) Negative HEPARIN [id number] 12:49:00* Test Item Value Reference Range Comments HEPARIN ANTIBODY (BEAKER) (test hwqo=029) Negative Negative HEPARIN ANTIBODY OD (BEAKER) (test uppa=0945) 0.082 <0.400 4T TOTAL SCORE (BEAKER) (test utcy=0632) 2 Probability of HIT based on scoring system: 6-8=High probability; 4-5=intermedi ate probability; 0-3=low probabilityFACTOR 10 [id number] 10:20:00* Test Item Value Reference Range Comments FACTOR X ACTIVITY (BEAKER) (test jvdv=521) 144.0 % 70.0-120.0 ANTI-NUCLEAR ANTIBODY (MEGHAN)2019-07-05 08:52:00* Test Item Value Reference Range Comments ANTI-NUCLEAR ANTIBODY (MEGHAN) (BEAKER) (test gnlw=562) Negative Negative Test performed by IFA method.SPUTUM CULTURE + GRAM [id number] 07:16:00* Test Item Value Reference Range Comments CULTURE (BEAKER) (test pilt=5877) See comment GRAM STAIN RESULT (BEAKER) (test keye=1564) 1+ White blood cells seen GRAM STAIN RESULT (BEAKER) (test sfmz=231283) 5-10 epithelial cells GRAM STAIN RESULT (BEAKER) (test wuwv=807930) 1+ yeast 1+ yeast<1+ Normal respiratory markos presentCBC W/PLT COUNT & AUTO DIFFERENTIAL 2019-07-05 06:12:00* Test Item Value Reference Range Comments WHITE BLOOD CELL COUNT (BEAKER) (test elfx=637) 9.6 K/ L 3.5-10.5 RED BLOOD CELL COUNT (BEAKER) (test npxh=216) 3.54 M/ L 4.63-6.08 HEMOGLOBIN (BEAKER) (test subi=465) 11.0 GM/DL 13.7-17.5 HEMATOCRIT (BEAKER) (test keqs=361) 33.7 % 40.1-51.0 MEAN CORPUSCULAR VOLUME (BEAKER) (test oksq=581) 95.2 fL 79.0-92.2 MEAN CORPUSCULAR HEMOGLOBIN (BEAKER) (test fmgz=647) 31.1 pg 25.7-32.2 MEAN CORPUSCULAR HEMOGLOBIN CONC (BEAKER) (test alsq=677) 32.6 GM/DL 32.3-36.5 RED CELL DISTRIBUTION WIDTH (BEAKER) (test qbtp=007) 13.1 % 11.6-14.4 PLATELET COUNT (BEAKER) (test xrzb=825) 103 K/CU MM 150-450 MEAN PLATELET VOLUME (BEAKER) (test kfdi=499) 12.0 fL 9.4-12.4 NUCLEATED RED BLOOD CELLS (BEAKER) (test nliz=789) 0 /100 WBC 0-0 NEUTROPHILS RELATIVE PERCENT (BEAKER) (test eybg=724) 94 % LYMPHOCYTES RELATIVE PERCENT (BEAKER) (test fhbm=377) 3 % MONOCYTES RELATIVE PERCENT (BEAKER) (test njic=824) 2 % EOSINOPHILS RELATIVE PERCENT (BEAKER) (test qiov=002) 0 % BASOPHILS RELATIVE PERCENT (BEAKER) (test chmi=516) 0 % NEUTROPHILS ABSOLUTE COUNT (BEAKER) (test lrvl=763) 9.04 K/ L 1.78-5.38 LYMPHOCYTES ABSOLUTE COUNT (BEAKER) (test jzpd=051) 0.30 K/ L 1.32-3.57 MONOCYTES ABSOLUTE COUNT (BEAKER) (test blxq=514) 0.17 K/ L 0.30-0.82 EOSINOPHILS ABSOLUTE COUNT (BEAKER) (test rlxa=581) 0.00 K/ L 0.04-0.54 BASOPHILS ABSOLUTE COUNT (BEAKER) (test ivyq=674) 0.00 K/ L 0.01-0.08 IMMATURE GRANULOCYTES-RELATIVE PERCENT (BEAKER) (test wrdh=7490) 1 % 0-1 [id number] 05:47:00* Test Item Value Reference Range Comments MAGNESIUM (BEAKER) (test akyw=907) 2.8 mg/dL 1.6-2.6 BASIC METABOLIC [id number] 05:47:00* Test Item Value Reference Range Comments SODIUM (BEAKER) (test vxqw=428) 135 meq/L 136-145 POTASSIUM (BEAKER) (test popz=100) 4.2 meq/L 3.5-5.1 CHLORIDE (BEAKER) (test zmnn=153) 99 meq/L 98-107 CO2 (BEAKER) (test fvki=101) 27 meq/L 22-29 BLOOD UREA NITROGEN (BEAKER) (test tpxl=131) 48 mg/dL 7-21 CREATININE (BEAKER) (test tfst=603) 2.10 mg/dL 0.57-1.25 GLUCOSE RANDOM (BEAKER) (test rvul=562) 176 mg/dL 70-105 CALCIUM (BEAKER) (test ckgp=628) 9.1 mg/dL 8.4-10.2 EGFR (BEAKER) (test zdgm=9084) 31 mL/min/1.73 sq m ESTIMATED GFR IS NOT ACCURATE CREATININE CLEARANCE IN PREDICTING GLOMERULAR FILTRATION RATE. ESTIMATED GFR IS NOT APPLICABLE FOR DIALYSIS PATIENTS. RAD, CHEST, 1 VIEW, NON [id number] 04:54:00Reason for exam:->Pneumonia vs pulmonary edemaShould this be performed at the bedside?->YesFINAL REPORT CLINICAL INDICATION: Pneumonia versus pulmonary edema Comparison: 07/04/2019 The cardiomediastinal contours are stable. The lung volumes remain low. Central pulmonary vascular congestion and bilateral pa renchymal opacities are unchanged. There is no pneumothorax. Signed: Se jareth Cortez MDReport Verified Date/Time: 07/05/2019 04:54:00 [id number] 02:03:00* Test Item Value Reference Range Comments PARTIAL THROMBOPLASTIN TIME (BEAKER) (test heig=486) 58.9 seconds 22.5-36.0 Prior to initiating heparinSTREP PNEUMONIAE [id number] 17:33:00* Test Item Value Reference Range Comments STREP PNEUMONIAE ANTIGEN (BEAKER) (test bzkb=2061) Presumptive negative for pneumococcal pneumonia - see comment Presumptive negative for pneumococcal pneumonia - see commen Presumptive negative for pneumococcal pneumonia, suggesting no current or recent pneumococcal infection. Infection due to S. pneumoniae cannot be ruled out since the antigen present in the sample may be below the detection limit of the test. RAD, ABDOMEN/KUB, 1 VIEW [id number] 16:55:00Reason for exam:->nausea/vomiting FINAL REPORT TECHNIQUE: Supine radiographs of the abdomen dated 07/04/2019 HISTORY: Nausea/vomiting. COMPARISON: None IMPRESSION:No air-f illed, dilated loops of bowel to suggest obstruction. Stool is seen throughout t he colon. No free intraperitoneal air. No abnormal soft tissue mass. 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 Signed: Tacos Martinezeport Verified Date/ Time: 07/04/2019 16:55:35 Reading Location: [facility] Reading Room Electronic ally signed by: TACOS MARTINEZ MD on 07/04/2019 04:55 PM LACTIC ACID, [id number] 16:01:00* Test Item Value Reference Range Comments LACTATE BLOOD VENOUS (2) (BEAKER) (test jjls=1008) 0.9 mmol/L 0.5-2.2 OXYGEN SATURATION, [id number] 13:10:00* Test Item Value Reference Range Comments O2 SATURATION (MEASURED) (BEAKER) (test wbcc=8008) 65.8 % TROPONIN [id number] 10:32:00* Test Item Value Reference Range Comments TROPONIN I (BEAKER) (test ztoa=253) 0.69 ng/mL 0.00-0.03 Troponin I (TnI) levels must be interpreted in the context of the presenting sym ptoms and the clinical findings. Elevated TnI levels indicate myocardial damage, but are not specific for ischemic heart disease. Elevated TnI levels are seen in patients with other cardiac conditions (including myocarditis and congestive h eart failure), and slight TnI elevations occur in patients with other conditions , including sepsis, renal failure, acidosis, acute neurological disease, and per sistent tachyarrhythmia.TROPONIN [id number] 10:31:00* Test Item Value Reference Range Comments TROPONIN I (BEAKER) (test dcua=201) 0.87 ng/mL 0.00-0.03 Troponin I (TnI) levels must be interpreted in the context of the presenting sym ptoms and the clinical findings. Elevated TnI levels indicate myocardial damage, but are not specific for ischemic heart disease. Elevated TnI levels are seen in patients with other cardiac conditions (including myocarditis and congestive h eart failure), and slight TnI elevations occur in patients with other conditions , including sepsis, renal failure, acidosis, acute neurological disease, and per sistent tachyarrhythmia.BLOOD GAS, [id number] 10:30:00* Test Item Value Reference Range Comments PH ARTERIAL (BEAKER) (test hlso=078) 7.39 7.35-7.45 PCO2 ARTERIAL (BEAKER) (test hzft=948) 46 mmHg 35-45 PO2 ARTERIAL (BEAKER) (test wdbf=157) 108 mmHg 80-90 O2 SATURATION ARTERIAL (BEAKER) (test aknj=075) 97.6 % 96.0-97.0 HCO3 ARTERIAL (BEAKER) (test lfvl=011) 27 mmol/L 21-29 BASE EXCESS ARTERIAL (BEAKER) (test ergk=969) 1.9 mmol/L -2.0-3.0 PATIENT TEMPERATURE (BEAKER) (test nhtz=3951) 38.0 C FIO2 (BEAKER) (test yssz=4623) 100.0 % [id number] 10:25:00* Test Item Value Reference Range Comments LIPASE (BEAKER) (test etvd=468) 17 U/L 8-78 [id number] 10:25:00* Test Item Value Reference Range Comments AMYLASE (BEAKER) (test bsft=731) 20 U/L 25-125 BASIC METABOLIC [id number] 07:15:00* Test Item Value Reference Range Comments SODIUM (BEAKER) (test lzgt=088) 136 meq/L 136-145 POTASSIUM (BEAKER) (test hija=271) 3.7 meq/L 3.5-5.1 CHLORIDE (BEAKER) (test uszt=307) 100 meq/L 98-107 CO2 (BEAKER) (test liiz=460) 27 meq/L 22-29 BLOOD UREA NITROGEN (BEAKER) (test kvff=293) 42 mg/dL 7-21 CREATININE (BEAKER) (test aene=931) 2.33 mg/dL 0.57-1.25 GLUCOSE RANDOM (BEAKER) (test bulb=461) 118 mg/dL 70-105 CALCIUM (BEAKER) (test xvjw=737) 8.8 mg/dL 8.4-10.2 EGFR (BEAKER) (test hgyy=1566) 28 mL/min/1.73 sq m ESTIMATED GFR IS NOT ACCURATE CREATININE CLEARANCE IN PREDICTING GLOMERULAR FILTRATION RATE. ESTIMATED GFR IS NOT APPLICABLE FOR DIALYSIS PATIENTS. URIC [id number] 07:12:00* Test Item Value Reference Range Comments URIC ACID (BEAKER) (test uksz=571) 8.9 mg/dL 2.6-7.2 [id number] 07:12:00* Test Item Value Reference Range Comments MAGNESIUM (BEAKER) (test fsgp=774) 2.5 mg/dL 1.6-2.6 CBC W/PLT COUNT & AUTO [id number] 06:13:00* Test Item Value Reference Range Comments WHITE BLOOD CELL COUNT (BEAKER) (test qxij=285) 11.0 K/ L 3.5-10.5 RED BLOOD CELL COUNT (BEAKER) (test otpw=841) 3.65 M/ L 4.63-6.08 HEMOGLOBIN (BEAKER) (test osgf=968) 11.4 GM/DL 13.7-17.5 HEMATOCRIT (BEAKER) (test hqro=047) 35.1 % 40.1-51.0 MEAN CORPUSCULAR VOLUME (BEAKER) (test mmep=624) 96.2 fL 79.0-92.2 MEAN CORPUSCULAR HEMOGLOBIN (BEAKER) (test vbjn=825) 31.2 pg 25.7-32.2 MEAN CORPUSCULAR HEMOGLOBIN CONC (BEAKER) (test xhuf=006) 32.5 GM/DL 32.3-36.5 RED CELL DISTRIBUTION WIDTH (BEAKER) (test dcfq=683) 13.5 % 11.6-14.4 PLATELET COUNT (BEAKER) (test huve=855) 104 K/CU MM 150-450 MEAN PLATELET VOLUME (BEAKER) (test hamo=449) 11.4 fL 9.4-12.4 NUCLEATED RED BLOOD CELLS (BEAKER) (test ddhu=024) 0 /100 WBC 0-0 NEUTROPHILS RELATIVE PERCENT (BEAKER) (test aknk=135) 84 % LYMPHOCYTES RELATIVE PERCENT (BEAKER) (test exwc=044) 8 % MONOCYTES RELATIVE PERCENT (BEAKER) (test ayby=831) 6 % EOSINOPHILS RELATIVE PERCENT (BEAKER) (test sbdw=938) 1 % BASOPHILS RELATIVE PERCENT (BEAKER) (test zwxm=928) 0 % NEUTROPHILS ABSOLUTE COUNT (BEAKER) (test qyoz=759) 9.26 K/ L 1.78-5.38 LYMPHOCYTES ABSOLUTE COUNT (BEAKER) (test bicx=750) 0.84 K/ L 1.32-3.57 MONOCYTES ABSOLUTE COUNT (BEAKER) (test hqog=273) 0.65 K/ L 0.30-0.82 EOSINOPHILS ABSOLUTE COUNT (BEAKER) (test mhhb=876) 0.08 K/ L 0.04-0.54 BASOPHILS ABSOLUTE COUNT (BEAKER) (test aopy=006) 0.02 K/ L 0.01-0.08 IMMATURE GRANULOCYTES-RELATIVE PERCENT (BEAKER) (test qxsd=6994) 1 % 0-1 RAD, CHEST, 1 VIEW, NON [id number] 04:44:00Reason for exam:->Pneumonia vs pulmonary edemaShould this be performed at the bedside?->YesFINAL REPORT CLINICAL INDICATION: Pulmonary edema versus pneumonia Comparison: 07/03/2019 The cardiomediastinal contours are stable. The lung volumes remain low. Central pulmonary vascular prominence and bilateral pa renchymal opacities are unchanged. There is no pneumothorax. A right IJ PA antonio ter remains in place. Signed: Jovany Cortez MDReport Verified Date/Time: 2018 04:44:26 , CHEST, WITHOUT [id number] 15:58:00FINAL REPORT CT of the Chest dated 07/03/2019 CLINICAL INFORMATION: Shortness of breath Comment: Axial images of the chest were obtained from thoracic inlet to the upper abdomen without intravenous contrast. This exam was performed according to our departmental dose-optimization program, which includes automated exposure control, adjustment of the mA and/or kV according to patient size and/or use of interactive reconstruction technique. Heart is normal in size. Minimal atherosclerotic calcification is seen in the thoracic aorta and coronary arteries. Great vessels are unremarkable. No adenopathy in the mediastinum or perihilar region. Trachea and mainstem bronchi are patent. Scarr ing versus subsegmental atelectasis is seen in both lung bases. Groundglass pulm onary parenchyma disease is seen in both lungs. Differential diagnosis for the g roundglass pulmonary parenchymal disease is the following: usual interstitial pn eumonia, nonspecific interstitial pneumonitis, desquamative interstitial pneumon ia, hypersensitivity pneumonitis, pulmonary edema or pulmonary hemorrhage. No pl eural effusion or pleural base mass is noted. Visualized upper abdomen demonstra muna no focal lesion. Impression: Nonspecific groundglass pulmonary point disease in both lungs. Differential as described as above. Signed: Hansel Hernández MDReport Verified Date/Time: 07/03/2019 15:58:04 Reading Location: [facility] B1 C013Y CT Body Reading Room 03 :58 PM CREATININE, RANDOM [id number] 15:46:00* Test Item Value Reference Range Comments CREATININE URINE (BEAKER) (test rrjn=004) 129.6 mg/dL Reference Range: No NormalsSODIUM, RANDOM [id number] 15:46:00* Test Item Value Reference Range Comments SODIUM URINE (BEAKER) (test flcy=812) 44 meq/L Reference Range: No NormalsUREA NITROGEN, RANDOM [id number] 15:46:00* Test Item Value Reference Range Comments UREA NITROGEN URINE (BEAKER) (test fwtc=955) 391 mg/dL Reference Range: No NormalsRESPIRATORY PANEL [id number] 13:06:00* Test Item Value Reference Range Comments HUMAN METAPNEUMOVIRUS (BEAKER) (test mxaf=3819) Not detected Not detected, Equivocal RHINOVIRUS (BEAKER) (test xzry=6112) Not detected Not detected, Equivocal INFLUENZA A (BEAKER) (test fygu=9067) Not detected Not detected, Equivocal INFLUENZA A (NO SUBTYPE) (test wocr=2147) INFLUENZA A SUBTYPE H1 (BEAKER) (test bzbn=0149) INFLUENZA A SUBTYPE H3 (BEAKER) (test xuve=6768) INFLUENZA A SUBTYPE H1-2009 (BEAKER) (test zdxj=1456) INFLUENZA B (BEAKER) (test ilpc=7898) Not detected Not detected, Equivocal RESPIRATORY SYNCYTIAL VIRUS (BEAKER) (test fnld=8733) Not detected Not detected, Equivocal PARAINFLUENZA VIRUS 1 (BEAKER) (test oruf=8382) Not detected Not detected, Equivocal PARAINFLUENZA VIRUS 2 (BEAKER) (test vwjq=9761) Not detected Not detected, Equivocal PARAINFLUENZA VIRUS 3 (BEAKER) (test ebty=6642) Not detected Not detected, Equivocal PARAINFLUENZA VIRUS 4 (BEAKER) (test xfdi=2811) Not detected Not detected, Equivocal ADENOVIRUS (BEAKER) (test wfzn=9707) Not detected Not detected, Equivocal CORONAVIRUS 229E (BEAKER) (test zhjb=6570) Not detected Not detected, Equivocal CORONAVIRUS HKU1 (BEAKER) (test ezgz=1654) Not detected Not detected, Equivocal CORONAVIRUS NL63 (BEAKER) (test elzp=3399) Not detected Not detected, Equivocal CORONAVIRUS OC43 (BEAKER) (test cazl=8182) Not detected Not detected, Equivocal BORDETELLA PERTUSSIS (BEAKER) (test buwb=0739) Not detected Not detected, Equivocal CHLAMYDOPHILA PNEUMONIAE (BEAKER) (test voak=1945) Not detected Not detected, Equivocal MYCOPLASMA PNEUMONIAE (BEAKER) (test mxyt=0623) Not detected Not detected, Equivocal Other viruses and bacteria not targeted by this PCR panel cannot be excluded; th erefore clinical correlation and follow up of serology, culture results, and oth er molecular studies is required. The results are not intended to be used as the sole means for clinical diagnosis or patient management decisions. This sample was tested at the [facility] using the [employer] FilmA rray Respiratory Panel. It is FDA cleared and has been verified and approved by the [facility] for clinical use on nasopharyngeal sw ab specimens.The performance of the FilmArray RP has not been established in ind ividuals who received influenza vaccine. Recent administration of a nasal influ sridevi vaccine may cause false positive results for Influenza A and/orInfluenza B. HEMOGLOBIN [id number] 09:14:00* Test Item Value Reference Range Comments HEMOGLOBIN A1C (BEAKER) (test snwo=617) 5.5 % 4.3-6.1 [id number] 07:17:00* Test Item Value Reference Range Comments MAGNESIUM (BEAKER) (test thxj=073) 2.8 mg/dL 1.6-2.6 BASIC METABOLIC [id number] 07:17:00* Test Item Value Reference Range Comments SODIUM (BEAKER) (test evcd=788) 139 meq/L 136-145 POTASSIUM (BEAKER) (test xcvd=640) 3.7 meq/L 3.5-5.1 CHLORIDE (BEAKER) (test btkc=707) 102 meq/L 98-107 CO2 (BEAKER) (test uouq=702) 29 meq/L 22-29 BLOOD UREA NITROGEN (BEAKER) (test eejv=456) 34 mg/dL 7-21 CREATININE (BEAKER) (test mhon=692) 1.91 mg/dL 0.57-1.25 GLUCOSE RANDOM (BEAKER) (test apjn=796) 130 mg/dL 70-105 CALCIUM (BEAKER) (test vxup=578) 8.7 mg/dL 8.4-10.2 EGFR (BEAKER) (test tior=8418) 35 mL/min/1.73 sq m ESTIMATED GFR IS NOT ACCURATE CREATININE CLEARANCE IN PREDICTING GLOMERULAR FILTRATION RATE. ESTIMATED GFR IS NOT APPLICABLE FOR DIALYSIS PATIENTS. [id number] 07:07:00* Test Item Value Reference Range Comments PROCALCITONIN (BEAKER) (test ekdf=3021) 3.78 ng/mL <0.05 SEPSIS RISK (ng/mL)Low: 0.05-0.50Intermediate: 0.51-2.00High: > =2.01CBC W/PLT COUNT & AUTO [id number] 06:47:00* Test Item Value Reference Range Comments WHITE BLOOD CELL COUNT (BEAKER) (test gulg=738) 13.6 K/ L 3.5-10.5 RED BLOOD CELL COUNT (BEAKER) (test odcd=052) 3.77 M/ L 4.63-6.08 HEMOGLOBIN (BEAKER) (test yyxu=303) 11.8 GM/DL 13.7-17.5 HEMATOCRIT (BEAKER) (test zmgf=346) 36.6 % 40.1-51.0 MEAN CORPUSCULAR VOLUME (BEAKER) (test odli=963) 97.1 fL 79.0-92.2 MEAN CORPUSCULAR HEMOGLOBIN (BEAKER) (test ldsq=192) 31.3 pg 25.7-32.2 MEAN CORPUSCULAR HEMOGLOBIN CONC (BEAKER) (test xyuo=267) 32.2 GM/DL 32.3-36.5 RED CELL DISTRIBUTION WIDTH (BEAKER) (test etyr=753) 14.0 % 11.6-14.4 PLATELET COUNT (BEAKER) (test ulwf=522) 122 K/CU MM 150-450 MEAN PLATELET VOLUME (BEAKER) (test qhqt=540) 11.6 fL 9.4-12.4 NUCLEATED RED BLOOD CELLS (BEAKER) (test avmd=756) 0 /100 WBC 0-0 NEUTROPHILS RELATIVE PERCENT (BEAKER) (test vhgx=136) 88 % LYMPHOCYTES RELATIVE PERCENT (BEAKER) (test mqau=668) 8 % MONOCYTES RELATIVE PERCENT (BEAKER) (test hprn=197) 4 % EOSINOPHILS RELATIVE PERCENT (BEAKER) (test ibrg=474) 0 % BASOPHILS RELATIVE PERCENT (BEAKER) (test dqat=812) 0 % NEUTROPHILS ABSOLUTE COUNT (BEAKER) (test caqy=971) 11.96 K/ L 1.78-5.38 LYMPHOCYTES ABSOLUTE COUNT (BEAKER) (test uhqn=974) 1.02 K/ L 1.32-3.57 MONOCYTES ABSOLUTE COUNT (BEAKER) (test ypfj=750) 0.55 K/ L 0.30-0.82 EOSINOPHILS ABSOLUTE COUNT (BEAKER) (test nvga=996) 0.01 K/ L 0.04-0.54 BASOPHILS ABSOLUTE COUNT (BEAKER) (test wyom=736) 0.01 K/ L 0.01-0.08 IMMATURE GRANULOCYTES-RELATIVE PERCENT (BEAKER) (test jrrk=4221) 1 % 0-1 TROPONIN [id number] 06:32:00* Test Item Value Reference Range Comments TROPONIN I (BEAKER) (test hpls=859) 0.94 ng/mL 0.00-0.03 Troponin I (TnI) levels must be interpreted in the context of the presenting sym ptoms and the clinical findings. Elevated TnI levels indicate myocardial damage, but are not specific for ischemic heart disease. Elevated TnI levels are seen in patients with other cardiac conditions (including myocarditis and congestive h eart failure), and slight TnI elevations occur in patients with other conditions , including sepsis, renal failure, acidosis, acute neurological disease, and per sistent tachyarrhythmia.RAD, CHEST, 1 VIEW, NON [id number] 04:20:00Reason for exam:->Pneumonia vs pulmonary edemaShould this be performed at the bedside?- >YesFINAL REPORT RAD, CHEST, 1 VIEW, NON DEPT INDICATION: Pneumonia vs pulmonary edema COMPARISON: Prior day's exam FINDINGS: Portable frontal view of the chest. IMPRESSION: Support Lines: Stable. Lungs and pleura: Unchanged airspace and pleural opacities. No pneumothorax.Heart and mediastinum: Stable contours. Additional findings: None. Signed: Jessi [place]arn[place] Verified Date/Time: 07/03/2019 04:20:32 ONIN I 2019-07-03 03:33:00* Test Item Value Reference Range Comments TROPONIN I (BEAKER) (test cixz=391) 1.40 ng/mL 0.00-0.03 Troponin I (TnI) levels must be interpreted in the context of the presenting sym ptoms and the clinical findings. Elevated TnI levels indicate myocardial damage, but are not specific for ischemic heart disease. Elevated TnI levels are seen in patients with other cardiac conditions (including myocarditis and congestive h eart failure), and slight TnI elevations occur in patients with other conditions , including sepsis, renal failure, acidosis, acute neurological disease, and per sistent tachyarrhythmia.OXYGEN SATURATION, [id number] 20:58:00* Test Item Value Reference Range Comments O2 SATURATION (MEASURED) (BEAKER) (test gyix=6947) 76.8 % URINALYSIS W/ REFLEX URINE [id number] 20:51:00* Test Item Value Reference Range Comments COLOR (BEAKER) (test ftmn=880) Light Yellow CLARITY (BEAKER) (test jzde=495) Clear SPECIFIC GRAVITY UA (BEAKER) (test gpbv=570) 1.009 1.001-1.035 PH UA (BEAKER) (test zqrl=671) 5.0 5.0-8.0 PROTEIN UA (BEAKER) (test oqag=087) Negative Negative GLUCOSE UA (BEAKER) (test ncrg=777) Negative Negative KETONES UA (BEAKER) (test jcyi=904) Negative Negative BILIRUBIN UA (BEAKER) (test rapi=778) Negative Negative BLOOD UA (BEAKER) (test viaw=153) Negative Negative NITRITE UA (BEAKER) (test kxxx=352) Negative Negative LEUKOCYTE ESTERASE UA (BEAKER) (test fmvs=161) Negative Negative UROBILINOGEN UA (BEAKER) (test djap=746) 0.2 mg/dL 0.2-1.0 RBC UA (BEAKER) (test xhuo=604) < /HPF WBC UA (BEAKER) (test jddi=027) < /HPF BACTERIA (BEAKER) (test xaip=994) Rare MUCUS (BEAKER) (test lymx=1533) Rare HYALINE CASTS (BEAKER) (test phwf=585) 6 /LPF SOURCE(BEAKER) (test fsss=7815) TROPONIN [id number] 19:59:00* Test Item Value Reference Range Comments TROPONIN I (BEAKER) (test qpxz=964) 1.82 ng/mL 0.00-0.03 Troponin I (TnI) levels must be interpreted in the context of the presenting sym ptoms and the clinical findings. Elevated TnI levels indicate myocardial damage, but are not specific for ischemic heart disease. Elevated TnI levels are seen in patients with other cardiac conditions (including myocarditis and congestive h eart failure), and slight TnI elevations occur in patients with other conditions , including sepsis, renal failure, acidosis, acute neurological disease, and per sistent tachyarrhythmia.[id number] 19:49:00* Test Item Value Reference Range Comments MAGNESIUM (BEAKER) (test wpar=308) 1.9 mg/dL 1.6-2.6 COMPREHENSIVE METABOLIC [id number] 19:49:00* Test Item Value Reference Range Comments TOTAL PROTEIN (BEAKER) (test jewy=685) 7.4 gm/dL 6.0-8.3 ALBUMIN (BEAKER) (test fngq=0854) 3.9 g/dL 3.5-5.0 ALKALINE PHOSPHATASE (BEAKER) (test pztq=188) 84 U/L 40-150 BILIRUBIN TOTAL (BEAKER) (test iqqe=186) 1.3 mg/dL 0.2-1.2 SODIUM (BEAKER) (test qjgw=357) 142 meq/L 136-145 POTASSIUM (BEAKER) (test tewq=553) 3.3 meq/L 3.5-5.1 CHLORIDE (BEAKER) (test ifbj=475) 98 meq/L 98-107 CO2 (BEAKER) (test gdru=386) 32 meq/L 22-29 BLOOD UREA NITROGEN (BEAKER) (test rlne=944) 25 mg/dL 7-21 CREATININE (BEAKER) (test xjtk=345) 1.53 mg/dL 0.57-1.25 GLUCOSE RANDOM (BEAKER) (test zigs=297) 135 mg/dL 70-105 CALCIUM (BEAKER) (test xhio=673) 9.1 mg/dL 8.4-10.2 AST (SGOT) (BEAKER) (test feyp=806) 42 U/L 5-34 ALT (SGPT) (BEAKER) (test kdnb=901) 32 U/L 6-55 EGFR (BEAKER) (test pggq=6231) 45 mL/min/1.73 sq m ESTIMATED GFR IS NOT ACCURATE CREATININE CLEARANCE IN PREDICTING GLOMERULAR FILTRATION RATE. ESTIMATED GFR IS NOT APPLICABLE FOR DIALYSIS PATIENTS. RAD, CHEST, 1 VIEW, NON [id number] 19:23:00Reason for exam:->swan-destiny catheter placementShould this be performed at the bedside?->YesFINAL REPORT RAD, CHEST, 1 VIEW, NON DEPT INDICATION: swan-destiny catheter placement COMPARISON: Same day's exam FINDINGS: Portable frontal view of the chest. IMPRESSION: Support Lines: Interval repositioning of the right IJ Delano-Destiny catheter with tip overlying the lower lobe pulmonary artery. Lungs and pleura: Unchanged airspace and pleural opacities. No pneumothorax.Heart and mediastinum: Stable contours. Additional findings: None. Signed: Jessi Farnsworth MDReport Verified Date/Time: 07/02/2019 19:23:31 Electronically s igned by: JESSI FARNSWORTH MD on 07/02/2019 07:23 PM RAD, CHEST, 1 VIEW, NON [id number] 18:00:00Reason for exam:->swan destiny placementShould this be performed at the bedside?->YesFINAL REPORT TECHNIQUE: Frontal view of the chest. INDICATION: 73-year-old man after Delano-Destiny catheter placement. COMPARISON: Chest radiograph from earlier same date. FINDINGS: LINES/TUBES/DEVICES: Right internal jugular pulmonary arterial catheter appears coiled in the main pulmonary artery, the tip projects over the expected region of the right atrium. LUNGS: Bilateral airspace opacities, possibly increased in the right lower lung zone. PLEURA: No pneumothorax or significant pleural effusion. HEART AND MEDIASTINUM: The cardiomediastinal silhouette is unchanged. SOFT TISSUES AND BONES: Unremarkable. IMPRESSION:Lines/tubes as above. Consider repositioning the pulmonary arterial catheter. Bilateral airspace opacities, possibly increased in the right lower lung zone. Otherwise, no significant change since chest radiograph from earlier same date. Signed: Rachid Chamorro MDReport Verified Date/Time: 07/02/2019 18:00:16 Reading Location: [facility] C013Y CT Body Reading Room B-TYPE NATRIURETIC FACTOR (BNP)2019-07-02 11:32:00* Test Item Value Reference Range Comments B-TYPE NATRIURETIC PEPTIDE (BEAKER) (test qlza=613) 606 pg/mL 0-100 CBC W/PLT COUNT & AUTO [id number] 11:27:00* Test Item Value Reference Range Comments WHITE BLOOD CELL COUNT (BEAKER) (test ulvb=941) 19.8 K/ L 3.5-10.5 RED BLOOD CELL COUNT (BEAKER) (test loaq=819) 4.05 M/ L 4.63-6.08 HEMOGLOBIN (BEAKER) (test aoei=740) 12.9 GM/DL 13.7-17.5 HEMATOCRIT (BEAKER) (test alnd=262) 38.2 % 40.1-51.0 MEAN CORPUSCULAR VOLUME (BEAKER) (test ctyp=434) 94.3 fL 79.0-92.2 MEAN CORPUSCULAR HEMOGLOBIN (BEAKER) (test qmpa=769) 31.9 pg 25.7-32.2 MEAN CORPUSCULAR HEMOGLOBIN CONC (BEAKER) (test wasi=678) 33.8 GM/DL 32.3-36.5 RED CELL DISTRIBUTION WIDTH (BEAKER) (test zuzk=287) 14.0 % 11.6-14.4 PLATELET COUNT (BEAKER) (test fzqx=858) 159 K/CU MM 150-450 MEAN PLATELET VOLUME (BEAKER) (test saal=180) 11.3 fL 9.4-12.4 NUCLEATED RED BLOOD CELLS (BEAKER) (test bdqv=125) 0 /100 WBC 0-0 NEUTROPHILS RELATIVE PERCENT (BEAKER) (test cpcs=717) 90 % LYMPHOCYTES RELATIVE PERCENT (BEAKER) (test vbxg=702) 5 % MONOCYTES RELATIVE PERCENT (BEAKER) (test dmev=248) 4 % EOSINOPHILS RELATIVE PERCENT (BEAKER) (test lufy=590) 0 % BASOPHILS RELATIVE PERCENT (BEAKER) (test nqsd=970) 0 % NEUTROPHILS ABSOLUTE COUNT (BEAKER) (test avto=923) 17.90 K/ L 1.78-5.38 LYMPHOCYTES ABSOLUTE COUNT (BEAKER) (test unuz=020) 1.06 K/ L 1.32-3.57 MONOCYTES ABSOLUTE COUNT (BEAKER) (test xekd=868) 0.72 K/ L 0.30-0.82 EOSINOPHILS ABSOLUTE COUNT (BEAKER) (test vmif=591) 0.01 K/ L 0.04-0.54 BASOPHILS ABSOLUTE COUNT (BEAKER) (test lxqc=383) 0.02 K/ L 0.01-0.08 IMMATURE GRANULOCYTES-RELATIVE PERCENT (BEAKER) (test ljkl=5943) 1 % 0-1 PROTHROMBIN TIME/[id number] 11:24:00* Test Item Value Reference Range Comments PROTIME (BEAKER) (test quvz=655) 19.7 seconds 11.9-14.2 INR (BEAKER) (test knje=380) 1.8 <=5.9 Effective 02/01/2019: PT Reference Range ChangeNew: 11.9-14.2 Previous: 11.7-14. 7RECOMMENDED COUMADIN/WARFARIN INR THERAPY RANGESSTANDARD DOSE: 2.0-3.0 Include s: PROPHYLAXIS for venous thrombosis, systemic embolization; TREATMENT for venou s thrombosis and/or pulmonary embolus.HIGH RISK: Target INR is 2.5-3.5 for patie nts wiht mechanical heart valves.[id number] 11:24:00* Test Item Value Reference Range Comments PARTIAL THROMBOPLASTIN TIME (BEAKER) (test akde=128) 41.7 seconds 22.5-36.0 RAD, CHEST, 1 VIEW, NON [id number] 10:11:00Reason for exam:->sobShould this be performed at the bedside?->YesFINAL REPORT History: Shortness of breath Comparison: None Findings: There are diffuse bilateral pulmonary opacities, most extensive in the right upper lobe, suggestive of pulmonary edema and/or multifocal pneumonia. No prior studies are available to determine if there is an element of underlying chronic lung disease. No pleural effusions or pneumothorax. The heart shadow is normal in size. The thoracic aorta is mildly tortuous. No acute skeletal abnormalities are identified. Signed: Quincy Ervin MDReport Verified Date/Time: 07/02/2019 10:11:22 Reading Location: [facility] B1 C013X Ortho Consult Reading Room C METABOLIC [id number] 10:51:00* Test Item Value Reference Range Comments SODIUM (BEAKER) (test ouzu=980) 139 meq/L 136-145 POTASSIUM (BEAKER) (test mtvz=409) 4.2 meq/L 3.5-5.1 Specimen slightly hemolyzed CHLORIDE (BEAKER) (test eqbf=658) 109 meq/L 98-107 CO2 (BEAKER) (test dhtp=616) 23 meq/L 22-29 BLOOD UREA NITROGEN (BEAKER) (test xjhr=661) 12 mg/dL 7-21 CREATININE (BEAKER) (test npkm=049) 1.00 mg/dL 0.57-1.25 Specimen slightly hemolyzed GLUCOSE RANDOM (BEAKER) (test qjgo=413) 113 mg/dL 70-105 CALCIUM (BEAKER) (test klms=605) 8.9 mg/dL 8.4-10.2 EGFR (BEAKER) (test mbtd=0475) 74 mL/min/1.73 sq m ESTIMATED GFR IS NOT ACCURATE CREATININE CLEARANCE IN PREDICTING GLOMERULAR FILTRATION RATE. ESTIMATED GFR IS NOT APPLICABLE FOR DIALYSIS PATIENTS. CBC (HEMOGRAM ONLY)2019-05-18 10:33:00* Test Item Value Reference Range Comments WHITE BLOOD CELL COUNT (BEAKER) (test hrcc=813) 8.2 K/ L 3.5-10.5 RED BLOOD CELL COUNT (BEAKER) (test jldf=672) 4.43 M/ L 4.63-6.08 HEMOGLOBIN (BEAKER) (test htyr=685) 13.6 GM/DL 13.7-17.5 HEMATOCRIT (BEAKER) (test rvhx=549) 40.4 % 40.1-51.0 MEAN CORPUSCULAR VOLUME (BEAKER) (test fbpj=856) 91.2 fL 79.0-92.2 MEAN CORPUSCULAR HEMOGLOBIN (BEAKER) (test qvot=945) 30.7 pg 25.7-32.2 MEAN CORPUSCULAR HEMOGLOBIN CONC (BEAKER) (test efcl=302) 33.7 GM/DL 32.3-36.5 RED CELL DISTRIBUTION WIDTH (BEAKER) (test gohx=941) 13.4 % 11.6-14.4 PLATELET COUNT (BEAKER) (test jsja=707) 136 K/CU MM 150-450 MEAN PLATELET VOLUME (BEAKER) (test hccv=915) 11.7 fL 9.4-12.4 NUCLEATED RED BLOOD CELLS (BEAKER) (test mnza=932) 0 /100 WBC 0-0 [id number] 18:19:00* Test Item Value Reference Range Comments ACTIVATED CLOTTING TIME (BEAKER) (test qsbr=028) 136 sec Reference Range: 74-137 seconds, Baseline/TESTED AT [place] [address] [id number] 16:56:00* Test Item Value Reference Range Comments ACTIVATED CLOTTING TIME (BEAKER) (test ojkx=327) 147 sec Reference Range: 74-137 seconds, Baseline/TESTED AT [place] [address] [id number] 13:10:00* Test Item Value Reference Range Comments ACTIVATED CLOTTING TIME (BEAKER) (test ktwe=925) 252 sec Reference Range: 74-137 seconds, Baseline/TESTED AT [place] [address] [id number] 13:10:00* Test Item Value Reference Range Comments ACTIVATED CLOTTING TIME (BEAKER) (test sbaw=489) 230 sec Reference Range: 74-137 seconds, Baseline/TESTED AT [place] [address] [id number] 13:10:00* Test Item Value Reference Range Comments ACTIVATED CLOTTING TIME (BEAKER) (test purq=361) 246 sec Reference Range: 74-137 seconds, Baseline/TESTED AT [facility] [address] [facility] [address]
--- NOTE | 2019-08-13 18:35 | NUR ---
RT AND DR MCDERMOTT BEDSIDE WITH LAURA RN AND MERVAT RN, KIARA RN, AND HENOK RN. PATIENT PLACED ON AREA MECHANIC; EKG DONE,20G IV STARTED TO RIGHT HAND, FAMILY TAKEN TO THE WAITING ROOM. PATIENT PREPARED FOR INTUBATION. 1840 - 20 MG ETOMIDATE GIVEN TO RIGHT HAND IV 1842 - 100 MG SUCCS GIVEN TO RIGHT HAND 20G AT THIS TIME 1843 - INTUBATED WITH SIZE 8.0 TUB, 23 @ THE LIP
[2019-08-13] MEDS ORDERED: ASPIRIN 81 MG CHEW TAB PO ONE (18:45)
[2019-08-13 18:47] LABS: BASOPHILS % 0.2 % (0.0-1.0); EOSINOPHILS # (AUTO) 0.1 (0.0-0.4); EOSINOPHILS % 0.4 % (0.0-6.0); HEMOGLOBIN 10.9 g/dL (14.0-18.0); LYMPHOCYTES % 4.3 % (18.0-39.1); MEAN CORPUSCULAR HEMOGLOBIN 32.2 pg (28-32); MEAN CORPUSCULAR HGB CONC 34.1 g/dL (31-35); MEAN CORPUSCULAR VOLUME 94.4 fL (81-99); MONOCYTES # (AUTO) 1.2 (0.2-0.8); MONOCYTES % 5.1 % (4.4-11.3); NEUTROPHILS # (AUTO) 20.1 (2.1-6.9); NEUTROPHILS % 88.2 % (38.7-80.0); PLATELET COUNT 226 x10e3/uL (140-360); RED BLOOD COUNT 3.39 x10e6/uL (4.3-5.7); RED CELL DISTRIBUTION WIDTH 14.8 % (11.7-14.4)
--- NOTE | 2019-08-13 18:47 | NUR ---
1 L NS BOLUS HUNG AT THIS TIME
[2019-08-13] MEDS ORDERED: SODIUM CHLORIDE 0.9% 1000ML 1,000 ML ONE ×3 (18:48→21:17)
[2019-08-13] MEDS ORDERED: VANCOMYCIN 1GM/NS 250 ML 250 ML IV ONE (18:48)
[2019-08-13] MEDS ORDERED: ACETAMINOPHEN 1000 MG/100 ML IV STA (18:50)
--- NOTE | 2019-08-13 18:50 | NUR ---
GOLD COLORED CHAIN WITH BOXING GLOVE SHAPED CHARM REMOVED FROM PATIENT, PLACED IN BIOHAZARD BAG AND GIVEN TO DAUGHTER INDU
[2019-08-13 18:54] LABS: INR 1.42; PARTIAL THROMBOPLASTIN TIME 31.7 seconds (23.8-35.5); PROTHROMBIN TIME 17.9 seconds (11.9-14.5)
[2019-08-13] MEDS ORDERED: MIDAZOLAM HCL 2 MG/2 ML VIAL IV STA (18:56)
[2019-08-13] MEDS ORDERED: SODIUM CHLORIDE 0.9% 1000ML 1,000 ML IV STA ×4 (18:58→21:08)
--- NOTE | 2019-08-13 18:58 | NUR ---
PATIENTS GOLD COLORED WEDDING BAND REMOVED AND GIVEN TO DAUGHTER INDU AT THIS TIME
[2019-08-13] MEDS ORDERED: MIDAZOLAM HCL 2 MG/2 ML VIAL ONE ×2 (18:59→23:52)
[2019-08-13 19:01] LABS: ALBUMIN 2.8 g/dL (3.5-5.0); ALBUMIN/GLOBULIN RATIO 0.9 (0.8-2.0); ANION GAP 17.8 mmol/L (8-16); CALCIUM 8.5 mg/dL (8.4-10.2); CREATININE, SERUM 1.46 mg/dL (0.72-1.25); POTASSIUM 3.8 mmol/L (3.5-5.1)
[2019-08-13 19:07] LABS: CREATINE KINASE MB 0.8 ng/mL (0-5.0)
[2019-08-13 19:19] LABS: B-TYPE NATRIURETIC PEPTIDE2 411.5 pg/mL (0-100)
[2019-08-13 19:19] LABS: BACTERIA,URINE FEW /HPF; BILIRUBIN,URINE NEGATIVE (NEGATIVE); CLARITY,URINE HAZY (CLEAR); COLOR,URINE YELLOW (YELLOW); EPITHELIAL CELLS,URINE FEW /LPF; KETONES,URINE NEGATIVE (NEGATIVE); LEUKOCYTE ESTERASE ,URINE NEGATIVE (NEGATIVE); NITRITE,URINE NEGATIVE (NEGATIVE); PROTEIN,URINE DIPSTICK NEGATIVE (NEGATIVE); RBC,URINE 0-5 /HPF (0-5); URINE UROBILINOGEN 0.2 mg/dL (0.2 - 1); WBC,URINE (MAN) 0-5 /HPF (0-5)
--- NOTE | 2019-08-13 19:23 | Diagnostic Imaging Report ---
EXAMINATION: CHEST SINGLE (PORTABLE) INDICATION: ^resp distrees ^[id number] ^1855 ^Y COMPARISON: None FINDINGS: AP view TUBES and LINES: Endotracheal tube in place with tip at the level of the clavicles. LUNGS: Limited by body habitus and low lung volumes. Diffuse bilateral airspace opacities. PLEURA: No pneumothorax. HEART AND MEDIASTINUM: The cardiomediastinal silhouette is obscured. BONES AND SOFT TISSUES: No acute osseous lesion. Soft tissues are unremarkable. UPPER ABDOMEN: No free air under the diaphragm. IMPRESSION: Diffuse bilateral airspace opacities representing severe pulmonary edema and/or pneumonia. Signed by: Dr. Pavel Laboy MD on 08/13/2019 7:19 PM
[2019-08-13 19:27] LABS: BAND NEUTROPHILS % (MANUAL) 1 %; LYMPHOCYTES % (MANUAL) 7 % (19-48); MONOCYTES % (MANUAL) 4 % (3.4-9.0); NEUTROPHILS % (MANUAL) 88 % (40-74); PLATELET ESTIMATE ADEQUATE; PLATELET MORPHOLOGY COMMENT NORMAL; RBC MORPHOLOGY COMMENT NORMAL
[2019-08-13] MEDS ORDERED: VECURONIUM BROMIDE FOR INJ 20 MG VIAL IV ONE (19:30)
[2019-08-13] MEDS ORDERED: CEFEPIME 2 GM/NS 0.9% 100 ML 100 ML IV ONE (19:30)
[2019-08-13] MEDS ORDERED: ACETAMINOPHEN 1000 MG/100 ML IV ONE (19:30)
[2019-08-13] MEDS: MIDAZOLAM HCL 25 MG in SODIUM CHLORIDE 0.9% 50ML 45 ML IV PRN (19:45)
[2019-08-13] MEDS ORDERED: VANCOMYCIN HCL 1GM/NS 250 ML BAG IV SCH (20:15)
[2019-08-13] MEDS ORDERED: CEFEPIME HCL 1 GM VIAL IV SCH (20:15)
--- NOTE | 2019-08-13 20:15 | NUR ---
Patient's glasses given to , Maik.
--- NOTE | 2019-08-13 20:20 | NUR ---
Dr. Ortiz critical care doctor at bedside to assess patient. Family at the bedside.
[2019-08-13] MEDS ORDERED: NOREPINEPHRINE 8 MG/D5W 250 ML 250 ML ONE (20:54)
[2019-08-13] MEDS ORDERED: NOREPINEPHRINE 8 MG/D5W 250 ML 250 ML IV PRN (21:00)
--- NOTE | 2019-08-13 21:04 | Diagnostic Imaging Report ---
EXAMINATION: CHEST XRAY LINE PLACEMENT INDICATION: ^cp ^[id number] ^2039 COMPARISON: 08/13/2019 FINDINGS: AP view TUBES and LINES: Stable endotracheal tube. Left internal jugular central line placement with tip projecting over left brachycephalic vein. LUNGS: Low lung volumes. Again seen diffuse bilateral airspace opacities. PLEURA: No pneumothorax. HEART AND MEDIASTINUM: The cardiomediastinal silhouette is obscured. BONES AND SOFT TISSUES: No acute osseous lesion. Soft tissues are unremarkable. UPPER ABDOMEN: No free air under the diaphragm. IMPRESSION: Status post left internal jugular central line placement with tip projecting over left brachiocephalic vein. No visible pneumothorax. Pulmonary status is unchanged. Signed by: Dr. Pavel Laboy MD on 08/13/2019 9:01 PM
[2019-08-13] MEDS: VANCOMYCIN 1GM/NS 250 ML 250 ML IV SCH (22:52)
[2019-08-13] MEDS ORDERED: ACETAMINOPHEN 650 MG SUPP PR PRN (23:00)
[2019-08-13] MEDS ORDERED: ONDANSETRON HCL INJ 2MG/ML 2ML 2 MG/ML VIAL IV PRN (23:00)
[2019-08-13 23:20] VITALS: BP 126/71
[2019-08-13] MEDS ORDERED: ENOXAPARIN SOD INJ 40 MG/0.4 ML SYR SC ONE (23:45)
[2019-08-13] MEDS ORDERED: SODIUM CHLORIDE 0.9% 100 ML ONE (23:53)
[2019-08-14] VITALS (66 sets, daily range): BP systolic 77–140; BP diastolic 44–87
[2019-08-14] MEDS: FENTANYL CITRATE/PF 100MCG/2 ML INJ IV PRN
[2019-08-14] MEDS: AZITHROMYCIN 500MG/NS 250 ML 250 ML IV SCH ×2 (00:28→22:42)
[2019-08-14] MEDS ORDERED: REQUIP XL2 MG PO (00:31)
[2019-08-14] MEDS ORDERED: ENTRESTO 24 MG1 EACH PO (00:31)
[2019-08-14] MEDS ORDERED: ASPIR 8181 MG PO (00:31)
[2019-08-14] MEDS ORDERED: DICYCLOMINE HCL10 MG PO (00:31)
[2019-08-14] MEDS ORDERED: CLOPIDOGREL75 MG PO (00:31)
[2019-08-14] MEDS ORDERED: VALIUM10 MG PO (00:31)
[2019-08-14] MEDS ORDERED: COREG3.125 MG PO (00:31)
[2019-08-14] MEDS ORDERED: ZOLOFT50 MG PO (00:31)
[2019-08-14] MEDS ORDERED: LASIX40 MG PO (00:31)
[2019-08-14] MEDS ORDERED: XARELTO10 MG PO (00:31)
[2019-08-14] MEDS ORDERED: OCUVITE TABLET1 EAC1 PO (00:31)
[2019-08-14] MEDS ORDERED: LYRICA75 MG PO ×2 (00:31→01:04)
[2019-08-14] MEDS ORDERED: TRAZODONE HCL50 MG PO (00:31)
[2019-08-14] MEDS ORDERED: NITROGLYCERIN0.4 MG SL (00:31)
[2019-08-14] MEDS ORDERED: POTASSIUM CHLO20 ME1 PO (00:31)
[2019-08-14] MEDS ORDERED: PREDNISONE20 MG PO (00:31)
[2019-08-14] MEDS ORDERED: PANTOPRAZOLE SO40 MG PO (00:31)
[2019-08-14] MEDS ORDERED: ATORVASTATIN CA80 MG PO (00:31)
[2019-08-14] MEDS ORDERED: ROPINIROLE HCL2 MG PO (01:04)
[2019-08-14] MEDS ORDERED: LYRICA150 MG PO (01:04)
[2019-08-14] MEDS ORDERED: XARELTO15 MG PO (01:04)
[2019-08-14] MEDS ORDERED: SODIUM CHLORIDE 0.9% 250ML 250 ML ONE ×2 (02:26→20:20)
[2019-08-14] MEDS: FENTANYL CITRATE INJ 2,000 MCG in SODIUM CHLORIDE 0.9% 250ML 210 ML IV PRN ×2 (02:46→15:07)
--- NOTE | 2019-08-14 04:21 | Consultation ---
DATE OF CONSULTATION: 08/13/2019 Pulmonary Critical Care Medicine Consult HISTORY OF PRESENT ILLNESS: Mr. Coe is a pleasant 73-year-old gentleman, well known to me from previous encounters in clinic, where the patient was admitted with shortness of breath. The patient with chronic interstitial lung disease that is cellular on radiography with paucity of fibrosis. The patient is on home oxygen and is known to desaturate on exertion very rapidly. The patient never had a bronchoscopy as his pulmonary condition was steadily improving on steroids. Recently, he is on prednisone 20 mg per day as outpatient. The patient for last two days has been more short of breath. Saturations were falling to 40 percentile range. The tried to troubleshoot and give him multiple p.r.n. medicines at home. Still lethargic. The patient was brought to the emergency room. Chest x-ray had bilateral ground-glass opacities. Temperature 103 degrees Fahrenheit. The patient was rapidly intubated once he came to emergency room. He had some borderline hypotension with blood pressures that responded so far to IV fluid. PAST MEDICAL HISTORY: Coronary artery disease, history of stent, hypertension, interstitial lung disease cellular type, thought to be possible hypersensitivity pneumonia versus idiopathic NSIP versus nonclassifiable UIP in early stages without jeffy fibrosis. The patient now with congestive heart failure, but much improved LVEF, I believe, to about 45% recently. MEDICATIONS: Medication list reviewed per the chart record. ALLERGIES: REVIEWED PER THE CHART RECORD. SOCIAL HISTORY: No drugs. No alcohol. The patient smoked transiently in his 20s and 30s, but since quit. FAMILY HISTORY: Noncontributory. REVIEW OF SYSTEMS: Cannot get due to intubated. PHYSICAL EXAMINATION: VITAL SIGNS: The patient with previous fevers, vital signs slightly more stabilized now. GENERAL: In no acute distress, he is sterilized on ventilator, synchronous with ventilator. HEENT: Normocephalic and atraumatic. NECK: Supple. Throat midline. LUNGS: Bilateral air entry, few rales. CARDIOVASCULAR: S1, S2. No murmurs, rubs, or gallops. ABDOMEN: Soft and nontender. EXTREMITIES: No clubbing and no cyanosis, trace edema pretibial. INTEGUMENT: No rash. No purpura. LABORATORY DATA/IMAGING: Labs reviewed per the chart record. Imaging studies still pending. IMPRESSION: 1. Acute hypoxemic respiratory failure, intubated. 2. Treat for hospital-acquired pneumonia/hospital associated pneumonia. 3. Chronic interstitial lung disease, recently improving. Possible exacerbation. 4. Known coronary artery disease, chronic, acute systolic heart failure. 5. Febrile syndrome, possible acquired sepsis prior to admission from pneumonia vs other sources. 6. Hypertension. 8. Hyperlipidemia. 9. Anxiety. 10. Hypotension, not shock. Await flu assay. Follow up blood cultures and sputum culture. Consideration for bronchoscopy for diagnostic purposes. Give broad-spectrum antibiotics for resistant organisms. Follow up closely. Lungs with protective ventilation. Ensure he does not go up to shock. Thank you very much, Dr. Lozano for allowing me a chance to participate in the care of Mr. Coe. Great than 30 minutes in direct care and coordination time. Discussed with family, discussed with nursing. MD MCKAY Momin/JENNIFER /[id number] MTDJosselin
[2019-08-14 05:14] LABS: BASOPHILS % 0.1 % (0.0-1.0); EOSINOPHILS % 0.3 % (0.0-6.0); HEMATOCRIT 25.3 % (38.2-49.6); HEMOGLOBIN 8.3 g/dL (14.0-18.0); LYMPHOCYTES # (AUTO) 1.6 (1.0-3.2); LYMPHOCYTES % 11.6 % (18.0-39.1); MEAN CORPUSCULAR HEMOGLOBIN 31.9 pg (28-32); MEAN CORPUSCULAR HGB CONC 32.8 g/dL (31-35); MEAN CORPUSCULAR VOLUME 97.3 fL (81-99); MONOCYTES # (AUTO) 0.8 (0.2-0.8); MONOCYTES % 5.7 % (4.4-11.3); NEUTROPHILS # (AUTO) 11.5 (2.1-6.9); NEUTROPHILS % 81.6 % (38.7-80.0); PLATELET COUNT 125 x10e3/uL (140-360); RED CELL DISTRIBUTION WIDTH 14.9 % (11.7-14.4)
[2019-08-14] MEDS: ACETAMINOPHEN 325 MG TAB PO PRN (05:19)
--- NOTE | 2019-08-14 05:36 | History and Physical ---
CHIEF COMPLAINT: Shortness of breath. HISTORY OF PRESENT ILLNESS: This is a 73-year-old male, who is currently intubated after having respiratory failure, but according to the ER physician was complaining of shortness of breath, cough, congestion, and fever ongoing for the last several days at home. Currently, there is no family members at bedside so the information is very limited. He is currently intubated, has a central line, on IV pressors, and started on broad-spectrum IV antibiotics. Chest x-ray is consistent with concerns for pneumonia. He is currently being managed accordingly by Pulmonary Critical Care. ID has been consulted as well. REVIEW OF SYSTEMS: Per the ER, physician positive for shortness of breath, cough, congestion, fever. Unable to obtain the rest of the 14-point review of systems as the patient is currently intubated and no family at bedside. ALLERGIES: TO CODEINE, HYDROCODONE, AND MORPHINE. MEDICATIONS: Home medications currently not available. PAST MEDICAL HISTORY: Unable to obtain. PAST SURGICAL HISTORY: Unable to obtain. FAMILY HISTORY: Unable to obtain. SOCIAL HISTORY: I do know he is , but there is no family at bedside. VITAL SIGNS: His T-max was 103.5, current temperature is 100.6, pulse 79, respiratory rate 16, blood pressure was 92/50, pulse ox 100% on a mechanical ventilator. LABORATORY DATA: Labs show white count 22, hemoglobin 10.9, hematocrit 32, and platelets of 226. Coagulation; PT 17, INR 1.4, PTT 31. Chemistry; sodium 142, potassium 3.8, chloride 107, bicarb is 21, anion gap of 17, BUN 17, creatinine 1.46, glucose is 154. Lactic acid was 3.6, now down to 1.6. LFTs within normal range. Troponins were negative. BNP 411. Albumin 2.8. Urinalysis negative. Flu was negative. MICROBIOLOGY: Blood and urine cultures are pending. Chest x-ray shows diffuse bilateral airspace opacities representing severe pulmonary edema and/or pneumonia. PHYSICAL EXAMINATION: GENERAL: He is intubated and sedated. HEENT: He has an ET tube in the oropharynx. NECK: Supple. Good range of motion. PULMONARY: Intubated, sedated, has some fine crackles appreciated. Some mild wheezing appreciated. CARDIOVASCULAR: Positive S1, S2. No murmurs, rubs, or gallops. ABDOMEN: Soft, nondistended, and nontender to palpation. MUSCULOSKELETAL: Unable to obtain. NEUROLOGICAL: Unable to obtain. SKIN: Intact. Warm to touch. Good cap refill. EXTREMITIES: He does have 1+ pedal edema in bilateral lower extremities. IMPRESSION: 1. Acute respiratory failure, currently intubated and sedated. Concerns for underlying healthcare associated pneumonia. 2. Sepsis secondary to healthcare associated pneumonia. 3. Lactic acidosis. 4. Leukocytosis and febrile. PLAN: At this time, blood and urine cultures have been collected. Pulmonary Critical Care consulted. He is currently intubated and sedated. He is on Versed and fentanyl for sedation. He is on broad-spectrum IV antibiotics, vancomycin, azithromycin, and cefepime. ID has been consulted. He is scheduled possibly for bronchoscopy in the morning by Pulmonary Critical Care. Continue on IV fluids. He is on IV Levophed for blood pressure support. Get repeat labs in the morning. Get a chest x-ray in the morning as well. Put on Lovenox for DVT prophylaxis. We will consider OG tube tomorrow for nutrition. We will discuss with Pulmonary Critical Care. MD KAROLINA Samaniego/JENNIFER /[id number]
[2019-08-14 05:38] LABS: ANION GAP 10.5 mmol/L (8-16); BLOOD UREA NITROGEN 15 mg/dL (7-26); BUN/CREATININE RATIO 14 (6-25); CALCIUM 7.4 mg/dL (8.4-10.2); CARBON DIOXIDE 22 mmol/L (22-29); CHLORIDE 111 mmol/L (98-107); CREATININE, SERUM 1.09 mg/dL (0.72-1.25); EST GLOMERULAR FILTRATION RATE > 60 ML/MIN (60-); GLUCOSE 99 mg/dL (74-118); POTASSIUM 3.5 mmol/L (3.5-5.1); SODIUM 140 mmol/L (136-145)
[2019-08-14] MEDS ORDERED: METHYLPREDNISOLONE SOD SUCC 125 MG/2ML VIAL IV SCH ×2 (06:00→14:00)
--- NOTE | 2019-08-14 06:51 | NUR ---
consult called to Dr. Caceres, awaiting call back.
--- NOTE | 2019-08-14 08:14 | Diagnostic Imaging Report ---
Examination: Single AP view of the chest. COMPARISON: 08/13/2019 INDICATION: Shortness of breath DISCUSSION: Endotracheal tube and left internal jugular approach central venous catheter are unchanged in position. Enteric tube has been placed. The tip lies off the current radiograph, inferior to the left hemidiaphragm. Lung volumes remain low with diffuse, multifocal consolidations left worse than right. No pneumothorax. No acute osseous abnormality. Stable cardiomediastinal contour to the extent visualized. IMPRESSION: Interval placement of an enteric tube as above. Otherwise stable position of support lines and tubes. No significant interval change in multifocal bilateral consolidations when accounting for differences in technique. Considerations include multifocal pneumonia, asymmetric pulmonary edema, and ARDS. Signed by: Dr. Viraj Sanz M.D. on 08/14/2019 8:10 AM
[2019-08-14] MEDS: MIDAZOLAM HCL 25 MG in SODIUM CHLORIDE 0.9% 50ML 45 ML IV PRN ×5 (09:00→20:00)
[2019-08-14] MEDS: CEFEPIME 1GM/NS 0.9% 50 ML 50 ML IV SCH ×2 (09:27→21:30)
[2019-08-14] MEDS ORDERED: EPINEPHRINE HCL 1:1000 1ML 1 MG/ML AMP ONE (10:36)
[2019-08-14] MEDS ORDERED: LIDOCAINE HCL 4% 50 ML BTL ONE (10:36)
[2019-08-14] MEDS ORDERED: LIDOCAINE HCL 2% 30 ML TUBE ONE (10:37)
[2019-08-14] MEDS ORDERED: POTASSIUM CHLORIDE 20MEQ/15ML UDC NG NR (12:00)
--- NOTE | 2019-08-14 13:00 | NUR ---
PRINTED LAB ORDER PER DR EARL AND GAVE COPY TO HISTOLOGIC TECHNICIAN Addendum: 08/14/19 at 1843 by Cheyenne Escobedo RN Amended: Links added.
[2019-08-14] MEDS: METHYLPREDNISOLONE SOD SUCC 40 MG/ML VIAL 1ML IV SCH ×2 (13:25→22:35)
[2019-08-14 13:27] LABS: BODY FLUID APPEARANCE CLOUDY; BODY FLUID COLOR RED; BODY FLUID TYPE BRONCHIAL ALVEOLAR L
[2019-08-14 13:28] LABS: RBC,BODY FLUID 13239 cells/uL; WBC,BODY FLUID 76 cells/uL
--- NOTE | 2019-08-14 15:14 | NUR ---
APPROACHED ME TO PATIENT'S CODE STATUS. SHE REQUEST THAT PATIENT'S CHEST NOT BE COMPRESSED AND SHE DOES NOT WANT TO HAVE ANY RIBS BROKEN. SHE WAS SPECIFIC THAT WE CONTINUE ALL OTHER MEASURES TO SUPPORT PATIENT ON LIFE SUPPORT WITH MEDICATIONS AND VENTILATION. ANY INFORMATION PERTAINING TO PLAN OF CARE TO BE DISCUSSED WITH ONLY. Addendum: 08/14/19 at 1533 by Cheyenne Escobedo RN DR TOVRA MADE AWARE. PALLIATIVE CONSULT ORDERED AND WILL DISCUSS WITH TOMORROW
--- NOTE | 2019-08-14 15:41 | Progress Note ---
DATE: 08/14/2019 Medicine Progress Note SUBJECTIVE: The patient is currently intubated and sedated. He had a bronchoscopy this morning. I spoke with the at bedside. The patient has been just recently discharged from [place]. He was doing well up until this weekend when he decompensated, became very short of breath. Discussed plan of care with nursing staff and patient's at bedside. PHYSICAL EXAMINATION: VITAL SIGNS: Temperature is 97.6, pulse is 89, respiratory rate is 27. He is on a mechanical ventilator, blood pressure 104/55. He is on Levophed pressors. GENERAL: Intubated and sedated. HEENT: Head; normocephalic and atraumatic. He has an ET tube. PULMONARY: Intubated and sedated. CARDIOVASCULAR: Positive S1, S2. No murmurs, rubs, or gallops appreciated. ABDOMEN: Soft, nondistended, and nontender to palpation. Bowel sounds present. MUSCULOSKELETAL: Unable to assess. NEUROLOGIC: Unable to assess. SKIN: Intact. Warm to touch. Good cap refill. PSYCHIATRIC: Intubated. LABORATORY DATA: Labs show white count was 14.1, hemoglobin 8.3, hematocrit 25.3, platelets of 125, coagulation PT 17, INR 1.42, PTT 31. Chemistry; sodium 140, potassium 3.5, chloride 111, bicarb 22, anion gap of 10, BUN is 15, creatinine is 1, glucose is 99, calcium is 7.4. Bronchoscopy analysis pending. C3, C4, MEGHAN all pending. Flu was negative. Microbiology; all cultures have been negative, but still pending several days. Chest x-ray this morning shows interval placement of the enteric tube. No significant interval change. Multifocal bilateral consolidation was accounting for differences in technique. Consideration multifocal pneumonia, asymmetric pulmonary edema, and ARDS. IMPRESSION: 1. Septic shock with concerns of health care associated pneumonia. 2. Acute respiratory failure, intubated and sedated. 3. Hypotension, now on IV pressors. 4. Lactic acidosis. 5. Leukocytosis. 6. Morbid obese. PLAN: At this time, the patient continues to be intubated, sedated, being managed by Pulmonary Critical Care. He continues to be on mechanical ventilator. Continue with broad-spectrum IV antibiotics. Vancomycin, azithromycin, and cefepime. ID has been consulted. The patient had bronchoscopy today, await for final cultures. Continue with IV Levophed to maintain greater than 65 mmHg. He is on Lovenox for DVT prophylaxis. OG tube has been placed. We will initiate Jevity tube feeds today. Continue follow with Pulmonary Critical care. Consultants Pulmonary Critical Care and ID are following. MD KAROLINA Samaniego/JENNIFER /[id number]
--- NOTE | 2019-08-14 16:00 | NUR ---
TUBE FEED DIET STARTED PER DR EARL ORDER. JEVITY 1.2 AT 20 ML/HR WITH GOAL OF 45 ML/HR
[2019-08-14] MEDS: ENOXAPARIN SOD INJ 40 MG/0.4 ML SYR SC SCH (16:04)
[2019-08-14 17:27] LABS: LYMPHOCYTES,BODY FLUID 34 %; NEUTROPHILS,BODY FLUID 30 %; OTHER CELLS,BODY FLUID 36 %
--- NOTE | 2019-08-14 19:34 | NUR ---
Nutrition Intervention Note RD Recommendation(s) for Physician: Recommend Vital 1.2 @ goal rate of 60 mL/hr Water flush per MD (provides 1728 kcal, 108 g protein, 1168 mL water/fluid) Plan of Care: RD following, monitoring for tolerance and adequacy Nutrition reason for involvement: protocol due to mechanical ventilation/initiation of tube feeding RD Assessment (08/14/19) Pt is a 73 year old male admitted with septic shock. Pt is currently intubated and there were no family members at bedside; therefore, prior nutrition information is limited. RD provided tube feed recommendation to RN. Will continue to monitor. Principal Problems/Diagnoses: septic shock PMH: Coronary artery disease, history of stent, hypertension, diabetes, interstitial lung disease cellular type, congestive heart failure, I/O: 4525/1280 GI: soft, non-tender abdomen, no BM recorded Skin: intact Labs: (08/14/19) Ca 7.4 Meds: (08/14/19) fetanyl, midazolam, vanocmycin, KCl, methylprednisolone, zofran, norepinephrine Ht: 67 inches Wt: 210 lbs BMI: 32.9 kg/m2 IBW: 148 lbs Malnutrition Evaluation (08/14/19) The patient does not meet criteria for a specified degree of malnutrition at this time. Will re-evaluate at follow-up as appropriate. Unable to assess at this time since prior nutrition history is limited. Nutrition Prescription (Diet Order): Jevity 1.2 @ 45 mL/hr (provides 1296 kcal, 60 g protein, and 872 mL water/fluid) Estimated Nutritional Needs: Calories: 1430-4136 calories/day (22-25 kcal/kg IBW) Protein:101-134 g protein/day (1.5-2 g pro/kg IBW) Diet Adequacy: Not meeting calorie needs, Not meeting protein needs with current tube feed order Tolerance: Tolerance pending Diet Education Needs Assessment: Diet education not indicated Nutrition Care Level: moderate Nutrition Diagnosis: Swallowing difficulty related to acute respiratory failure/mechanical ventilation as evidenced by need for enteral nutrition. Goal: Patient will meet 75-100% of estimated needs by follow up Progress: N/A Interventions: -Tube feed - Composition, Rate, Route, Recommended Modifications, Collaboration with other providers Monitoring/Evaluation: -Total energy intake, Total protein intake, Formula/Solution, Weight change Signed: Yasmine Boyer RD, LD
[2019-08-14] MEDS: VANCOMYCIN 1GM/NS 250 ML 250 ML IV SCH (20:55)
[2019-08-15] VITALS (57 sets, daily range): BP systolic 90–163; BP diastolic 50–143
--- NOTE | 2019-08-15 00:05 | NUR ---
Pulmonary Critical Care Medicine DATE 08/14/2019 SUBJECTIVE LEVOPHED 8/min UOP fair to low intubated on ventilator 16/500/10/60% versed 10/ fentanyl 200/ REVIEW OF SYSTEMS: Cannot get due to intubated. PHYSICAL EXAMINATION: VITAL SIGNS: Reviewed per EMR GENERAL: on ventilator, synchronous, awakens HEENT: Normocephalic and atraumatic. NECK: Supple. Throat midline. LUNGS: Bilateral air entry, few rales. CARDIOVASCULAR: S1, S2. No murmurs, rubs, or gallops. ABDOMEN: Soft and nontender. EXTREMITIES: No clubbing and no cyanosis, trace edema pretibial. INTEGUMENT: No rash. No purpura. LABORATORY DATA/IMAGING: k 3.5, cr 1.1, co2 22, wbc 14, hct 25, plt 125 CXR: bilateral moderate to large lung infiltrates, mildly worse after fluid boluses IMPRESSION: 1. Acute respiratory failure, intubated. 2. Treat for hospital-acquired pneumonia/hospital associated pneumonia. 3. Lymphocytic alveolitis, chronic interstitial lung disease, recently improving. Possible exacerbation. 4. Known coronary artery disease, acute/chronic systolic heart failure. Recent LVEF ~40-45% 5. Febrile syndrome, possible sepsis from pneumonia vs other sources. 6. Hypertension. 7. Diabetes. 8. Hyperlipidemia. 9. Anxiety. 10. shock, distributive +/- cardiogenic 11. immunosuppressed state negative flu assay. screen connective tissue diseases steroids for lymphocytic alveolitis Follow up blood cultures and sputum culture and bronch cultures bronchoscopy today noted Give broad-spectrum antibiotics for resistant organisms. Lungs with protective ventilation. Wean pressors. Once pressors are off, diuresis recommended Repeat TTE Thank you very much, Dr. Lozano for allowing me a chance to participate in the care of Mr. Coe.
--- NOTE | 2019-08-15 00:13 | Consultation ---
DATE OF CONSULTATION: 08/14/2019 REASON FOR CONSULTATION: Pneumonia. HISTORY OF PRESENT ILLNESS: This patient is a well known to me from previously. The patient who had a prolonged hospitalization. The patient was discharged from [facility], where he was there for shortness of breath and pneumonia, but he also diagnosed with congestive heart failure, then he was transferred to [facility] and then he came back to [place] where he had a lengthy stay. He had aspiration pneumonia one point, which was treated and then he was in ICU for some time and then he was sent home. He was there, sent home on oxygen with couple of days, but became really short of breath, tachycardic, O2 saturation dropped to 30%. The called 911, brought him here. He is intubated, sedated. I had a long discussion with the , also with Dr. Lozano, the patient who is currently intubated, does not really provide any complaints, remaining information, but the is telling me that he left [place] with oxygen. He was there for couple of days and he became very short of breath, started to have cough. He may have also had aspirated, she is not so sure she was in the emergency room, where he was intubated. The patient underwent bronchoscopy earlier. When he first came, he had fever 103, heart rate 79, O2 saturation was 100 on mechanical ventilation. The tells me it was in 30. PAST MEDICAL HISTORY: Congestive heart failure. PAST SURGICAL HISTORY: As above. ALLERGIES: NKA. SOCIAL HISTORY: No smoking, drug abuse, or alcohol abuse. FAMILY HISTORY: Hypertension. REVIEW OF SYSTEMS: CONSTITUTIONAL: Could not be obtain at present time. HEENT: He is not icteric. NECK: Supple. CHEST: Few crackles bilateral. COR: S1, S2. No murmur. ABDOMEN: Soft. Bowel sounds present. No tenderness. No hepatosplenomegaly. The patient who is currently not really provide any information, but history was taken mainly from the and discussing the case with medical team. LABORATORY DATA: Culture was sent. White count on admission was 22.7, hemoglobin 10.9. Sodium 140, potassium 3.7, creatinine 1.09. MEDICATION LIST: He is currently on: 1. Lovenox. 2. Fentanyl. 3. Methylprednisolone. 4. Cefepime. 5. Azithromycin. His chest x-ray, which was done showed multifocal bilateral consolidation. IMPRESSION: 1. Acute respiratory failure. 2. Pneumonia probably aspiration/healthcare associated pneumonia. 3. Congestive heart failure. 4. Sepsis on admission. Discussed with the at length. We will put the patient on vancomycin and cefepime. The would like DNR present time and just want comfort care. We discussed with Critical Care. Discussed with Dr. Lozano. Discussed with medical team. MD MIRTA Hernández/JENNIFER /[id number]
[2019-08-15] MEDS: MIDAZOLAM HCL 25 MG in SODIUM CHLORIDE 0.9% 50ML 45 ML IV PRN ×5 (00:49→23:47)
--- NOTE | 2019-08-15 04:00 | Operative Report ---
DATE OF PROCEDURE: 08/14/2019 SURGEON: Forrest Ortiz MD PROCEDURE: Fiberoptic flexible bronchoscopy with washes and BAL. INDICATION: Respiratory failure, chronic interstitial lung disease, febrile syndrome. ANESTHESIA: The patient intubated on medications, per nursing record. CONSENT: Informed consent from the patient's . PROCEDURE FINDINGS: The patient was already intubated via 7.5-Nepali endotracheal tube. The fiberoptic flexible bronchoscope was inserted into the tracheobronchial tree. There was mild purulence noted, but the lungs were mostly free of heavy secretions. The patient then underwent a wedge of the left lingula and BAL was performed. A good return was noted. The pink to red acute aliquots, but these aliquots did not worse upon serial lavage. No evidence of proteinosis. Thereafter, airways were inspected without mass, lesions, nor configure irregularities. Thereafter, the scope was removed and the patient was allowed to recover on the ventilator. COMPLICATIONS: None. ESTIMATED BLOOD LOSS: None. Successful bronchoscopy with BAL and washings. RECOMMENDATIONS: Followup ordered studies. Maintain the patient on ventilator at this time. Forrest Ortiz MD GMN/MODL /[id number]
[2019-08-15] MEDS: METHYLPREDNISOLONE SOD SUCC 40 MG/ML VIAL 1ML IV SCH ×3 (05:42→21:04)
[2019-08-15 05:44] LABS: BASOPHILS % 0.2 % (0.0-1.0); HEMATOCRIT 27.6 % (38.2-49.6); HEMOGLOBIN 8.9 g/dL (14.0-18.0); LYMPHOCYTES # (AUTO) 0.6 (1.0-3.2); LYMPHOCYTES % 3.1 % (18.0-39.1); MEAN CORPUSCULAR HEMOGLOBIN 31.4 pg (28-32); MEAN CORPUSCULAR HGB CONC 32.2 g/dL (31-35); MEAN CORPUSCULAR VOLUME 97.5 fL (81-99); MONOCYTES # (AUTO) 0.7 (0.2-0.8); MONOCYTES % 3.5 % (4.4-11.3); NEUTROPHILS # (AUTO) 18.4 (2.1-6.9); NEUTROPHILS % 91.9 % (38.7-80.0); PLATELET COUNT 155 x10e3/uL (140-360); RED BLOOD COUNT 2.83 x10e6/uL (4.3-5.7); RED CELL DISTRIBUTION WIDTH 14.6 % (11.7-14.4)
[2019-08-15 06:14] LABS: ALANINE AMINOTRANSFERASE 23 IU/L (0-55); ALBUMIN 2.3 g/dL (3.5-5.0); ALBUMIN/GLOBULIN RATIO 0.7 (0.8-2.0); ALKALINE PHOSPHATASE 93 IU/L (40-150); ANION GAP 10.3 mmol/L (8-16); BLOOD UREA NITROGEN 21 mg/dL (7-26); BUN/CREATININE RATIO 19 (6-25); CALCIUM 8.9 mg/dL (8.4-10.2); CARBON DIOXIDE 23 mmol/L (22-29); CHLORIDE 114 mmol/L (98-107); CREATININE, SERUM 1.09 mg/dL (0.72-1.25); EST GLOMERULAR FILTRATION RATE > 60 ML/MIN (60-); GLUCOSE 161 mg/dL (74-118); MAGNESIUM 1.8 MG/DL (1.3-2.1); PHOSPHORUS 3.2 MG/DL (2.3-4.7); POTASSIUM 4.3 mmol/L (3.5-5.1); SODIUM 143 mmol/L (136-145)
--- NOTE | 2019-08-15 08:22 | Diagnostic Imaging Report ---
EXAM: CHEST SINGLE (PORTABLE) DATE: 08/15/2019 5:00 AM INDICATION: Intubated/sepsis COMPARISON: 08/14/2019 FINDINGS: Endotracheal tube and left IJ central venous catheter Benefiel in stable position. Enteric tube noted coursing below the diaphragm. The trachea is midline. Again identified are diffusely increased multifocal airspace opacities, similar to the prior examination. There is no evidence for pneumothorax or significant pleural effusion. The cardiomediastinal silhouette is stable in appearance. No acute osseous abnormalities identified. IMPRESSION: No significant interval change from 08/14/2019. Stable appearing bilateral airspace opacities identified. Differential considerations included edema, multifocal pneumonia, and ARDS. Signed by: Dr. Jair Thayer MD on 08/15/2019 8:18 AM
[2019-08-15] MEDS: CEFEPIME 1GM/NS 0.9% 50 ML 50 ML IV SCH ×2 (08:44→21:04)
[2019-08-15] MEDS: FAMOTIDINE 20 MG/2 ML VIAL IV SCH ×2 (08:44→17:10)
--- NOTE | 2019-08-15 10:36 | NUR ---
ADMITTING MD CHANGED TO Malcolm ZARCO Addendum: 08/15/19 at 1037 by Cheyenne Escobedo RN DR GUY GARCIA
[2019-08-15] MEDS ORDERED: ETOMIDATE 40 MG/ 20ML VIAL IV ONE (12:30)
[2019-08-15] MEDS ORDERED: SUCCINYLCHOLINE 200 MG/10 ML SYR IV ONE (12:30)
--- NOTE | 2019-08-15 16:38 | NUR ---
PALLIATIVE CARE CONSULT CALLED PT MADE DNR STATUS PT INTUBATED, WANTS TO CONTINUE MEDICAL TREATMENT
[2019-08-15] MEDS: ENOXAPARIN SOD INJ 40 MG/0.4 ML SYR SC SCH (17:10)
[2019-08-15] MEDS: VANCOMYCIN 1GM/NS 250 ML 250 ML IV SCH (21:04)
[2019-08-15] MEDS: FENTANYL CITRATE INJ 2,000 MCG in SODIUM CHLORIDE 0.9% 250ML 210 ML IV PRN (21:27)
[2019-08-15] MEDS: AZITHROMYCIN 500MG/NS 250 ML 250 ML IV SCH (23:46)
[2019-08-16] VITALS (25 sets, daily range): BP systolic 94–118; BP diastolic 45–70
--- NOTE | 2019-08-16 00:53 | NUR ---
Pulmonary Critical Care Medicine DATE 08/15/2019 SUBJECTIVE LEVOPHED 8/min urine output good versed 8, fentanyl 200/ Tube feeds 45 cc per hour. Water 30 cc every 4 hours. Patient remained intubated, 12/450/55%/10 Preprocedure 30, minute ventilation 8, tidal volume 544 discussed with family today. REVIEW OF SYSTEMS: Cannot get due to intubated. PHYSICAL EXAMINATION: VITAL SIGNS: Reviewed per EMR GENERAL: on ventilator, synchronous, awakens HEENT: Normocephalic and atraumatic. NECK: Supple. Throat midline. LUNGS: Bilateral air entry, few rales. CARDIOVASCULAR: S1, S2. No murmurs, rubs, or gallops. ABDOMEN: Soft and nontender. EXTREMITIES: No clubbing and no cyanosis, trace edema pretibial. INTEGUMENT: No rash. No purpura. LABORATORY DATA/IMAGIN.2 potassium: 23 bicarbonate, 21 BUN, 1.09 creatinine. 19.9 white count, hematocrit 27.6, platelets 155. CXR: bilateral moderate to large lung infiltrates,stable IMPRESSION: 1. Acute respiratory failure, intubated. ARDS 2. Treat for hospital-acquired pneumonia/hospital associated pneumonia. 3. Lymphocytic alveolitis, chronic interstitial lung disease. Rx as exacerbation. more likely hypersensitivity pneumonitis vs NSIP vs OP vs mycobacterial/fungal/other 4. Known coronary artery disease, acute/chronic systolic heart failure. Recent LVEF ~40-45% 5. Febrile syndrome, possible sepsis from pneumonia vs other sources. 6. Hypertension. 7. Diabetes. 8. Hyperlipidemia. 9. Anxiety. 10. shock, distributive +/- cardiogenic 11. immunosuppressed state negative flu assay. follow-up screen connective tissue diseases steroids for lymphocytic alveolitis Follow up blood cultures and sputum culture and bronch cultures Give broad-spectrum antibiotics for resistant organisms. Lungs with protective ventilation. Wean pressors. Once pressors are off, diuresis recommended follow up TTE Thank you very much, Dr. Damon for allowing me a chance to participate in the care of Mr. Coe.
[2019-08-16] MEDS: MIDAZOLAM HCL 25 MG in SODIUM CHLORIDE 0.9% 50ML 45 ML IV PRN ×9 (02:00→23:30)
[2019-08-16] MEDS: FENTANYL CITRATE INJ 2,000 MCG in SODIUM CHLORIDE 0.9% 250ML 210 ML IV PRN ×2 (03:23→09:13)
[2019-08-16] MEDS: METHYLPREDNISOLONE SOD SUCC 40 MG/ML VIAL 1ML IV SCH ×3 (05:18→22:17)
[2019-08-16 05:40] LABS: BASOPHILS % 0.1 % (0.0-1.0); HEMOGLOBIN 8.6 g/dL (14.0-18.0); LYMPHOCYTES # (AUTO) 0.5 (1.0-3.2); LYMPHOCYTES % 2.2 % (18.0-39.1); MEAN CORPUSCULAR HEMOGLOBIN 31.7 pg (28-32); MEAN CORPUSCULAR HGB CONC 31.9 g/dL (31-35); MEAN CORPUSCULAR VOLUME 99.6 fL (81-99); MONOCYTES % 4.3 % (4.4-11.3); NEUTROPHILS # (AUTO) 20.7 (2.1-6.9); NEUTROPHILS % 92.1 % (38.7-80.0); PLATELET COUNT 159 x10e3/uL (140-360); RED BLOOD COUNT 2.71 x10e6/uL (4.3-5.7); RED CELL DISTRIBUTION WIDTH 15.4 % (11.7-14.4)
[2019-08-16 06:04] LABS: ANION GAP 11.4 mmol/L (8-16); BLOOD UREA NITROGEN 23 mg/dL (7-26); BUN/CREATININE RATIO 23 (6-25); CALCIUM 8.6 mg/dL (8.4-10.2); CARBON DIOXIDE 24 mmol/L (22-29); CHLORIDE 117 mmol/L (98-107); CREATININE, SERUM 0.98 mg/dL (0.72-1.25); EST GLOMERULAR FILTRATION RATE > 60 ML/MIN (60-); GLUCOSE 140 mg/dL (74-118); POTASSIUM 4.4 mmol/L (3.5-5.1); SODIUM 148 mmol/L (136-145)
--- NOTE | 2019-08-16 08:18 | Diagnostic Imaging Report ---
EXAM: CHEST SINGLE (PORTABLE) DATE: 08/16/2019 5:00 AM INDICATION: Insert, pneumonia COMPARISON: 08/15/2019 FINDINGS: Endotracheal tube and left IJ coursing central venous catheter again identified in stable position. Enteric tube noted coursing below the diaphragm. There are stable appearing diffuse increased airspace opacities present bilaterally, similar to prior examinations. There is no evidence for pneumothorax or significant pleural effusion. The cardiomediastinal silhouette is unchanged in appearance. No acute osseous abnormality identified. IMPRESSION: Unchanged diffusely increased bilateral airspace opacities. Findings are nonspecific but can be seen in the setting of edema, multifocal infectious process, and ARDS. Signed by: Dr. Jair Thayer MD on 08/16/2019 8:15 AM
[2019-08-16] MEDS: CEFEPIME 1GM/NS 0.9% 50 ML 50 ML IV SCH ×2 (10:29→21:30)
[2019-08-16] MEDS: FAMOTIDINE 20 MG/2 ML VIAL IV SCH ×2 (10:29→17:24)
[2019-08-16] MEDS: FLUCONAZOLE 400MG/200ML BAG 200 ML IV SCH (13:06)
--- NOTE | 2019-08-16 16:18 | NUR ---
SPOKE WITH STEP DAUGHTER OBTAINED COPY OF 3 PAGE HAND WRITTEN WILL/POA THAT IS NOTARIZED PUT LABELS ON EACH PAGE AND FILED UNDER ADVANCED DIRECTIVE PAGE IN CHART. NOTIFIED PALLIATIVE EXPLOSIVES ENGINEER AND CM.
[2019-08-16] MEDS: ENOXAPARIN SOD INJ 40 MG/0.4 ML SYR SC SCH (17:27)
--- NOTE | 2019-08-16 17:46 | NUR ---
STATES WANTS DR ZARCO TO CALL THE PT'S SALES ASSISTANTS AND SALESPERSONS DR MERVAT CHAPPELL [phone] IN HIS OFFICE AFTER 10AM TO RECOMMEND A SALES ASSISTANTS AND SALESPERSONS HERE.
[2019-08-16] MEDS: FENTANYL CITRATE/PF 100MCG/2 ML INJ IV PRN (18:00)
--- NOTE | 2019-08-16 19:00 | NUR ---
Receive patient sedated with versed and fentanyl, also on inotropic support Levophed. Vitals stable, opening eyes to voice and very agitated when aroused. Family requests to let him sleep after my assessment
--- NOTE | 2019-08-16 19:33 | Progress Note ---
DATE: 08/16/2019 SUBJECTIVE: Mr. Coe seen and examined. Chart reviewed. Met with daughter and met with ; however, this patient currently remains in intensive care unit. He is intubated, sedated on vasopressors. The patient has no new issues. He remains extremely sick. OBJECTIVE: VITAL SIGNS: Heart rate of 75, respirations 14, blood pressure 102/56 on ventilator and vasopressors. HEENT: Normocephalic, not icteric. Oral intubation. CHEST: Few crackles at the bases. HEART: S1, S2. ABDOMEN: Soft, distended. EXTREMITIES: No edema. Presently, the feeding is on hold because of high residuals. His culture of bronchial washing shows only fungal element. His white count is 22.4, hemoglobin 8.6, hematocrit 27, his platelets 159. Sodium 148, potassium 4.4, creatinine 0.98. He is currently on methylprednisolone 40 mg q.8, fluconazole, cefepime, azithromycin, and vancomycin. ASSESSMENT AND PLAN: 1. Respiratory failure. 2. Concern about aspiration and pneumonia. Congestive heart failure. Continue with the current choice of IV antibiotic. I do not thing the yeast is causing his pneumonia. He may have oral thrush or esophagitis. Certainly his problem is his cardiac status. 1. Discussed with the family at length. 2. Coronary artery disease. 3. History of stents. 4. History of hypertension. 5. Interstitial lung disease. 6. Leukocytosis, on steroid. 7. Prognosis remained poor discussed with family. Continue same for now. The patient is DNR. They are going to reassess in a few days. We will follow. MD MIRTA Hernández/JENNIFER /[id number]
[2019-08-16] MEDS ORDERED: SODIUM CHLORIDE 0.9% 250ML 250 ML ONE (20:36)
[2019-08-16] MEDS: VANCOMYCIN 1GM/NS 250 ML 250 ML IV SCH (20:44)
--- NOTE | 2019-08-16 23:00 | NUR ---
Patients relative does not want me to reposition the patient due to his agitation when awake, made a request to let him sleep the whole shift. Vitals stable
[2019-08-16] MEDS: AZITHROMYCIN 500MG/NS 250 ML 250 ML IV SCH (23:24)
[2019-08-17] VITALS (28 sets, daily range): BP systolic 95–119; BP diastolic 51–76
--- NOTE | 2019-08-17 01:17 | NUR ---
Pulmonary Critical Care Medicine DATE 08/16/2019 SUBJECTIVE LEVOPHED 5/min urine output 500/12 hrs iv sedation Tube feeds 45 cc per hour tolerated discussed with family today. REVIEW OF SYSTEMS: Cannot get due to intubated. PHYSICAL EXAMINATION: VITAL SIGNS: Reviewed per EMR GENERAL: on ventilator, synchronous, awakens HEENT: Normocephalic and atraumatic. NECK: Supple. Throat midline. LUNGS: Bilateral air entry, few rales. CARDIOVASCULAR: S1, S2. No murmurs, rubs, or gallops. ABDOMEN: Soft and nontender. EXTREMITIES: No clubbing and no cyanosis, trace edema pretibial. INTEGUMENT: No rash. No purpura. LABORATORY DATA/IMAGIN.4 k, cr 0.9. 22 wbc. hct 27 CXR: bilateral moderate lung infiltrates, mildly improved IMPRESSION: 1. Acute respiratory failure, intubated. ARDS 2. Treat for hospital-acquired pneumonia/hospital associated pneumonia. 3. Lymphocytic alveolitis, chronic interstitial lung disease. Rx as exacerbation. more likely hypersensitivity pneumonitis vs NSIP vs OP vs mycobacterial/fungal/other 4. Known coronary artery disease, acute/chronic systolic heart failure. Recent LVEF ~40-45% 5. Febrile syndrome, possible sepsis from pneumonia vs other sources. 6. Hypertension. 7. Diabetes. 8. Hyperlipidemia. 9. Anxiety. 10. shock, distributive +/- cardiogenic 11. immunosuppressed state negative flu assay. follow-up connective tissue disease screen steroids for lymphocytic alveolitis Follow up blood cultures and sputum culture and bronch cultures Give broad-spectrum antibiotics for resistant organisms. Lung protective ventilation. Wean pressors. Once pressors are off, diuresis to ensue Thank you very much, Dr. Damon for allowing me a chance to participate in the care of Mr. Coe.
[2019-08-17] MEDS: MIDAZOLAM HCL 25 MG in SODIUM CHLORIDE 0.9% 50ML 45 ML IV PRN ×7 (02:00→23:00)
[2019-08-17] MEDS: FENTANYL CITRATE/PF 100MCG/2 ML INJ IV PRN ×2 (02:00→10:45)
[2019-08-17 05:36] LABS: ANION GAP 10.7 mmol/L (8-16); BLOOD UREA NITROGEN 24 mg/dL (7-26); BUN/CREATININE RATIO 26 (6-25); CALCIUM 8.5 mg/dL (8.4-10.2); CARBON DIOXIDE 26 mmol/L (22-29); CHLORIDE 111 mmol/L (98-107); CREATININE, SERUM 0.92 mg/dL (0.72-1.25); EST GLOMERULAR FILTRATION RATE > 60 ML/MIN (60-); GLUCOSE 130 mg/dL (74-118); MAGNESIUM 2.2 MG/DL (1.3-2.1); PHOSPHORUS 3.4 MG/DL (2.3-4.7); POTASSIUM 4.7 mmol/L (3.5-5.1); SODIUM 143 mmol/L (136-145)
[2019-08-17] MEDS: METHYLPREDNISOLONE SOD SUCC 40 MG/ML VIAL 1ML IV SCH ×3 (06:00→20:52)
[2019-08-17] MEDS: FAMOTIDINE 20 MG/2 ML VIAL IV SCH ×2 (08:29→17:49)
[2019-08-17] MEDS: CEFEPIME 1GM/NS 0.9% 50 ML 50 ML IV SCH ×2 (08:30→20:52)
--- NOTE | 2019-08-17 08:35 | Diagnostic Imaging Report ---
Examination: Single AP view of the chest. COMPARISON: 08/16/2019 INDICATION: Pneumonia DISCUSSION: Endotracheal tube, enteric tube, and left internal jugular central venous catheter are unchanged in position. As before, there are diffuse, confluent airspace opacities bilaterally, without significant interval change. No sizable pleural effusion or pneumothorax. Stable cardiomediastinal contour. No acute osseous abnormality. IMPRESSION: Stable position of support lines and tubes. Unchanged confluent bilateral airspace opacities, which may reflect multifocal pneumonia, edema, or ARDS as previously discussed. Signed by: Dr. Viraj Sanz M.D. on 08/17/2019 8:32 AM
--- NOTE | 2019-08-17 09:25 | NUR ---
Dr Ren notified of consult for Dr Art. Stated will come back to see pt.
[2019-08-17] MEDS: FENTANYL CITRATE INJ 2,000 MCG in SODIUM CHLORIDE 0.9% 250ML 210 ML IV PRN (10:45)
--- NOTE | 2019-08-17 10:45 | NUR ---
Error in documentation. Fentanyl 100mcg/2 ml was not given. The fentanyl drip in 200ml was the only fentanyl given. Unable to correct in EMAR.
[2019-08-17] MEDS: FLUCONAZOLE 400MG/200ML BAG 200 ML IV SCH (12:11)
[2019-08-17] MEDS: FUROSEMIDE INJ 10 MG/ML 2 ML VIAL IV SCH ×2 (13:41→20:52)
--- NOTE | 2019-08-17 15:57 | NUR ---
Pt has continued to exhibit episodes of bradycardia down to HR 34. The episodes are brief with HR maintaining mostly in 50's with episodes of HR to 70's. Have spoken with Dr Ren who ordered an ABG.
[2019-08-17 16:59] LABS: ABG PCO2 47 mmHg (41-51); ABG PH 7.39 (7.31-7.41)
[2019-08-17 17:00] LABS: ABG HCO3 28 mmol/L (23-28); ABG PO2 54 mmHg (80-105)
--- NOTE | 2019-08-17 17:00 | NUR ---
Results of ABG called to Dr Ortiz. Which FIO2 increase will be managed by respiratory. Also, Dr Ortiz was notified that pt had an extreme aggitation event after the ABG which pt was difficult to contain and calm. The heart rate elevated to 120 bpm. An EKG was obtained. New order received for a paralytic prn extreme aggitation, but the ventilator will have to be adjusted to a respiratory backup rate of [address] Diaz was paged to notify of the abg and event. The patient retuned to 70's heartrate and no new complications are noted. Respiratory is aware they are to manage the O2 settings.
[2019-08-17] MEDS: ENOXAPARIN SOD INJ 40 MG/0.4 ML SYR SC SCH (17:49)
[2019-08-17] MEDS ORDERED: VECURONIUM BROMIDE FOR INJ 20 MG VIAL IV PRN (18:00)
[2019-08-17] MEDS: VANCOMYCIN 1GM/NS 250 ML 250 ML IV SCH (21:13)
[2019-08-17] MEDS: AZITHROMYCIN 500MG/NS 250 ML 250 ML IV SCH (22:48)
--- NOTE | 2019-08-17 23:51 | Consultation ---
DATE OF CONSULTATION: 08/17/2019 Cardiology Consultation REASON FOR CONSULTATION: Coronary artery disease. HISTORY OF PRESENT ILLNESS: This is a 73-year-old man with coronary artery disease, chronic systolic heart failure, left ventricular mural thrombus, hypertension, moderate aortic stenosis, hyperlipidemia, and diabetes mellitus, who was recently discharged from [facility]. The patient reports that he had been weak after his discharge, but otherwise had been feeling well until Wednesday when he began to have progressive shortness of breath. He was discharged home on oxygen and his notes that she was having to increase his supplemental oxygen at home. However, she noted he was having oxygen desaturation by pulse oximeter. On Wednesday, she noted he began to desat into the 30s and EMS was called. On evaluation in the ER, he was found to be febrile to 103 degrees Fahrenheit and was subsequently intubated for acute hypoxic respiratory failure. Cardiology is consulted for management of his cardiac condition. All history is obtained from the family and EMR due to intubation and sedation. REVIEW OF SYSTEMS: Unable to obtain secondary to intubation and sedation. PAST MEDICAL HISTORY: 1. Coronary artery disease with recent cardiac catheterization revealing moderate coronary artery disease with 50% RCA, 60% ostial PDA and 60% circumflex disease as well as patent stents. 2. Chronic systolic heart failure. 3. Known left ventricular mural thrombus. 4. Hypertension. 5. Hyperlipidemia. 6. Diabetes mellitus. 7. Interstitial lung disease. 8. Moderate aortic stenosis. ALLERGIES: PLEASE SEE EMR. MEDICATIONS: Please see medication list. SOCIAL HISTORY: No drugs or alcohol. Prior smoker. FAMILY HISTORY: Noncontributory to current illness. PHYSICAL EXAMINATION: VITAL SIGNS: Temperature 99.5 degrees, pulse 42, respiratory rate 16, blood pressure 114/62, oxygen 91% on mechanical ventilation. GENERAL: Elderly man, intubated and sedated, no acute distress. HEENT: Normocephalic, atraumatic. ET tube is present. NECK: Supple. No thyroid or cervical lymphadenopathy. No carotid bruits. LUNGS: Clear to auscultation bilaterally anterior lung feliciano. No wheezes or crackles. CARDIOVASCULAR: Bradycardic, but regular. Systolic murmur. ABDOMEN: Soft, nontender. EXTREMITIES: Trace edema. NEURO: Unable to assess. LABORATORY DATA: WBC 22.45, hemoglobin 8.6, hematocrit 27, platelets 159. Sodium 143, potassium 4.7, chloride 111, CO2 of 26, BUN 24, creatinine 0.42. Chest x-ray, stable position of support lines and tubes, unchanged inflow bilateral airspace opacities, which may reflect multifocal pneumonia, edema or ARDS. EKG, sinus tachycardia with frequent PVCs. IMPRESSION: 1. Acute hypoxic respiratory failure, currently on mechanical ventilation. 2. Hospital acquired pneumonia. 3. Interstitial lung disease. 4. Acute on chronic systolic heart failure. 5. Moderate coronary artery disease as above. 6. Hypertension. 7. Hyperlipidemia. 8. Diabetes mellitus. 9. Moderate aortic stenosis. 10. Sepsis. RECOMMENDATIONS: 1. Monitor volume status closely. If blood pressure tolerates, I would recommend diuresis. Continue home cardiac medications, specifically continue aspirin and Plavix and statin. We would resume home Xarelto for his known mural thrombus, currently holding Entresto and carvedilol due to hypotension. Antibiotics per primary service, continue supportive care. Prognosis is guarded. 2. Monitor the patient closely on telemetry. Thank you for this consult. We will continue to follow. Kiley Ren MD ABS/MODL /[id number]
[2019-08-18] VITALS (26 sets, daily range): BP systolic 99–141; BP diastolic 40–87
[2019-08-18] MEDS: MIDAZOLAM HCL 25 MG in SODIUM CHLORIDE 0.9% 50ML 45 ML IV PRN ×7 (02:30→23:00)
--- NOTE | 2019-08-18 02:58 | NUR ---
Pulmonary Critical Care Medicine DATE 08/17/2019 SUBJECTIVE Levophed off at 8:30 am Diuresis started Tube feeds 20/hr vital 1.2, some residuals borderline 2.9 L / 1.2 L I/Os REVIEW OF SYSTEMS: Cannot get due to intubated. PHYSICAL EXAMINATION: VITAL SIGNS: Reviewed per EMR GENERAL: on ventilator, can awaken HEENT: Normocephalic, atraumatic. NECK: Supple. Throat midline. LUNGS: Bilateral air entry, few rales. CARDIOVASCULAR: S1, S2. No murmurs, rubs, or gallops. ABDOMEN: Soft, nontender. EXTREMITIES: No clubbing, no cyanosis, trace edema pretibial. INTEGUMENT: No rash. No purpura. LABORATORY DATA/IMAGING: k 4.7, cr 0.92, wbc 22, hct 27, plt 159 CXR: bilateral moderate lung infiltrates, mildly improved IMPRESSION: 1. Acute respiratory failure, intubated. ARDS 2. Treat for hospital-acquired pneumonia/hospital associated pneumonia. 3. Lymphocytic alveolitis, chronic interstitial lung disease. Rx as exacerbation. more likely hypersensitivity pneumonitis vs NSIP vs OP vs mycobacterial/fungal/other 4. Known coronary artery disease, acute/chronic systolic heart failure. Recent LVEF ~40-45% 5. Febrile syndrome, possible sepsis from pneumonia vs other sources. 6. Hypertension. 7. Diabetes. 8. Hyperlipidemia. 9. Anxiety. 10. shock, distributive +/- cardiogenic 11. immunosuppressed state negative flu assay. follow-up connective tissue disease screen steroids for lymphocytic alveolitis Follow up blood cultures and sputum culture and bronch cultures Give broad-spectrum antibiotics for resistant organisms. Lung protective ventilation. Diuresis as BP allows, extubate if ventilator oxygen requirements diminish Thank you very much, Dr. Damon for allowing me a chance to participate in the care of Mr. Coe.
[2019-08-18] MEDS: METHYLPREDNISOLONE SOD SUCC 40 MG/ML VIAL 1ML IV SCH ×3 (05:05→20:16)
[2019-08-18 05:23] LABS: HEMATOCRIT 23.4 % (38.2-49.6); HEMOGLOBIN 7.5 g/dL (14.0-18.0); LYMPHOCYTES # (AUTO) 0.4 (1.0-3.2); LYMPHOCYTES % 3.5 % (18.0-39.1); MEAN CORPUSCULAR HEMOGLOBIN 31.6 pg (28-32); MEAN CORPUSCULAR HGB CONC 32.1 g/dL (31-35); MEAN CORPUSCULAR VOLUME 98.7 fL (81-99); MONOCYTES # (AUTO) 0.3 (0.2-0.8); MONOCYTES % 3.2 % (4.4-11.3); NEUTROPHILS # (AUTO) 9.4 (2.1-6.9); NEUTROPHILS % 92.4 % (38.7-80.0); PLATELET COUNT 115 x10e3/uL (140-360); RED BLOOD COUNT 2.37 x10e6/uL (4.3-5.7); RED CELL DISTRIBUTION WIDTH 15.3 % (11.7-14.4)
[2019-08-18 05:40] LABS: ANION GAP 13.1 mmol/L (8-16); BLOOD UREA NITROGEN 34 mg/dL (7-26); BUN/CREATININE RATIO 30 (6-25); CALCIUM 8.2 mg/dL (8.4-10.2); CARBON DIOXIDE 29 mmol/L (22-29); CHLORIDE 110 mmol/L (98-107); CREATININE, SERUM 1.12 mg/dL (0.72-1.25); EST GLOMERULAR FILTRATION RATE > 60 ML/MIN (60-); GLUCOSE 131 mg/dL (74-118); POTASSIUM 4.1 mmol/L (3.5-5.1); SODIUM 148 mmol/L (136-145)
--- NOTE | 2019-08-18 08:22 | Diagnostic Imaging Report ---
Chest, portable AP view History: Interstitial edema Comparison: No comparisons available for review IMPRESSION: Support devices are in stable position. Diffuse interstitial airspace are present and unchanged 4 and may reflect interstitial edema, multifocal pneumonia, or ARDS. There is no sizable pleural effusion. There is no pneumothorax. Signed by: Caesar Monson MD on 08/18/2019 8:19 AM
[2019-08-18] MEDS: FAMOTIDINE 20 MG/2 ML VIAL IV SCH ×2 (08:34→17:28)
[2019-08-18] MEDS: FUROSEMIDE INJ 10 MG/ML 2 ML VIAL IV SCH ×3 (08:34→20:16)
[2019-08-18] MEDS ORDERED: VANCOMYCIN 1GM/NS 250 ML 250 ML IV SCH (09:30)
[2019-08-18] MEDS: CEFEPIME 1GM/NS 0.9% 50 ML 50 ML IV SCH ×2 (09:30→20:16)
[2019-08-18 10:23] LABS: BASOPHILS % 0.1 % (0.0-1.0); HEMATOCRIT 23.6 % (38.2-49.6); HEMOGLOBIN 7.7 g/dL (14.0-18.0); LYMPHOCYTES # (AUTO) 0.3 (1.0-3.2); MEAN CORPUSCULAR HEMOGLOBIN 32.1 pg (28-32); MEAN CORPUSCULAR HGB CONC 32.6 g/dL (31-35); MEAN CORPUSCULAR VOLUME 98.3 fL (81-99); MONOCYTES # (AUTO) 0.4 (0.2-0.8); MONOCYTES % 3.3 % (4.4-11.3); NEUTROPHILS # (AUTO) 9.8 (2.1-6.9); NEUTROPHILS % 92.7 % (38.7-80.0); PLATELET COUNT 114 x10e3/uL (140-360); RED CELL DISTRIBUTION WIDTH 14.8 % (11.7-14.4)
[2019-08-18] MEDS ORDERED: SODIUM CHLORIDE 0.9% 250ML 250 ML ONE (10:59)
[2019-08-18] MEDS: FENTANYL CITRATE/PF 100MCG/2 ML INJ IV PRN (11:00)
[2019-08-18] MEDS: FLUCONAZOLE 400MG/200ML BAG 200 ML IV SCH (11:53)
[2019-08-18] MEDS: ENOXAPARIN SODIUM INJ 100 MG/ML SYR SC SCH ×2 (11:55→20:16)
[2019-08-18] MEDS ORDERED: ASPIRIN 81 MG ENTERIC COATED PO SCH (12:00)
[2019-08-18] MEDS: ASPIRIN 81 MG CHEW TAB NG SCH (12:47)
--- NOTE | 2019-08-18 13:03 | NUR ---
WOUND CARE CONSULT 73 YO MALE HX OF SEPSIS KHLOE 16 ON MODERATE PUP STATUS ON ALTERNATING PRESSURE MATTRESS PATIENT IS REPORTED BY NURSING TO HAVE HEALING ABRASION ON LEFT ELBOW STABLE WITH DRESSING IN TACT I AM UNABLE TO VISUALIZE AREA R/T PATIENT STATUS AT THIS TIME ASKED BY DAUGHTER NOT TO SEE PATIENT WILL FOLLOW UP WITH THIS PATIENT SOON POSSIBLE Addendum: 08/18/19 at 1309 by Hank Barroso RN Amended: Links added.
--- NOTE | 2019-08-18 13:05 | Progress Note ---
DATE: 08/18/2019 Cardiology Progress Note SUBJECTIVE: The patient remains intubated and sedated. Continues to require ventilatory support. OBJECTIVE: VITAL SIGNS: Temperature 99.6 degrees, pulse 62 respiratory rate 16, blood pressure 106/59, oxygen saturation 100% on mechanical ventilation, net negative 1.5 L. GENERAL: Elderly man, intubated and sedated, no acute distress. LUNGS: Clear to auscultation anterior lung feliciano. No wheezes or crackles. CARDIOVASCULAR: Normal rate, regular rhythm. Systolic murmur. ABDOMEN: Soft, nontender. EXTREMITIES: Trace edema. CARDIAC MEDICATIONS: Lasix 20 mg IV q.12 hours, enoxaparin 40 mg subcu daily. LABORATORY DATA: WBC 10.58, hemoglobin 7.7, hematocrit 23.6, platelets 114. Sodium 148, potassium 4.1, chloride 110, CO2 of 29, BUN 34, creatinine 1.12. Bronchial washings growing yeast species. TELEMETRY: Normal sinus rhythm. IMPRESSION: 1. Acute hypoxic respiratory failure, currently on mechanical ventilation. 2. Hospital-acquired pneumonia. 3. Interstitial lung disease. 4. Acute on chronic systolic heart failure. 5. Moderate coronary artery disease with 50% right coronary artery, 50% ostial posterior descending artery and 60% percent circumflex disease as well as patent left anterior descending artery stents. 6. Hypertension. 7. Hyperlipidemia. 8. Diabetes mellitus. 9. Moderate aortic stenosis. 10. Sepsis. RECOMMENDATIONS: The patient's blood pressure has been stable and he is no longer on pressors. Continue diuretics to keep the patient net negative. He has had adequate urine output. We will continue to monitor. We will continue to monitor creatinine closely. Replete electrolytes. Resume aspirin, atorvastatin. Place the patient on Lovenox given his known mural thrombus. Continue to hold antihypertensive therapy. Antibiotics per Infectious Disease. Continue supportive care. His prognosis is guarded. Thank you for this consult. We will continue to follow. Kiley Ren MD ABS/MODL /[id number]
--- NOTE | 2019-08-18 13:46 | NUR ---
Follow up note RD Recommendation(s) for Physician: Continue Vital 1.2 @ goal rate of 60 mL/hr Water flush per MD (provides 1728 kcal, 108 g protein, 1168 mL water/fluid) Plan of Care: RD following, monitoring for tolerance and adequacy Nutrition reason for involvement: follow up RD Assessment (08/18/19) Pt continues to be intubated. Pt is currently receiving Vital 1.2 @ 30 mL/hr per RN. RN reported pt is tolerating tube feeding and she will be increasing the rate towards goal rate of 60 mL/hr. 6-120 mL residuals recorded. Will continue to monitor (08/14/19) Pt is a 73 year old male admitted with septic shock. Pt is currently intubated and there were no family members at bedside; therefore, prior nutrition information is limited. RD provided tube feed recommendation to RN. Will continue to monitor. Principal Problems/Diagnoses: septic shock PMH: Coronary artery disease, history of stent, hypertension, diabetes, interstitial lung disease cellular type, congestive heart failure I/O: 1934/3475 GI: soft, non-tender abdomen, no BM recorded Skin: intact Labs: (08/18/19) Na 148, Creat 34, Glu 131, Ca 8.2 (08/14/19) Ca 7.4 Meds: lovenox, pepcid, midazolam, methylprednisolone, fentanyl, norepinephrine, lasix, Lipitor, vancomycin, zofran Ht: 67 inches Wt: 212 lbs (08/14) 210 lbs BMI: 33.2 kg/m2 IBW: 148 lbs Malnutrition Evaluation (08/14/19) The patient does not meet criteria for a specified degree of malnutrition at this time. Will re-evaluate at follow-up as appropriate. Unable to assess at this time since prior nutrition history is limited. Nutrition Prescription (Diet Order): Vital 1.2 @ goal rate of 60 mL/hr Estimated Nutritional Needs: Calories: 9244-8186 calories/day (22-25 kcal/kg IBW) Protein:101-134 g protein/day (1.5-2 g pro/kg IBW) Diet Adequacy: Not meeting calorie needs, Not meeting protein needs with current tube feed rate Tolerance: Tolerating tube feeding Diet Education Needs Assessment: Diet education not indicated Nutrition Care Level: moderate Nutrition Diagnosis: Swallowing difficulty related to acute respiratory failure/mechanical ventilation as evidenced by need for enteral nutrition. Goal: Patient will meet 75-100% of estimated needs by follow up Progress: progressing (RN reported she will be increasing tube feed towards goal rate) Interventions: -Tube feed - Composition, Rate, Route, Recommended Modifications, Collaboration with other providers Monitoring/Evaluation: -Total energy intake, Total protein intake, Formula/Solution, Weight change Signed: Yasmine Boyer RD, LD
--- NOTE | 2019-08-18 15:42 | Diagnostic Imaging Report ---
EXAMINATION: CHEST SINGLE (PORTABLE) INDICATION: ET tube repositioned. COMPARISON: Chest radiograph 08/18/2019. FINDINGS: TUBES and LINES: ET tube terminates 5.3 cm above the alison. Enteric tube terminates in the proximal stomach. LUNGS: Lungs are moderately inflated. There are increasing bilateral diffuse opacities. PLEURA: No pleural effusion or pneumothorax. HEART AND MEDIASTINUM: The cardiomediastinal silhouette is mildly enlarged. BONES AND SOFT TISSUES: No acute osseous abnormality. UPPER ABDOMEN: No free air under the diaphragm. IMPRESSION: ET tube as above. No evidence of pneumothorax. Increasing bilateral diffuse opacities, which may reflect pulmonary edema, multifocal pneumonia and/or ARDS. Signed by: Dr. Dariusz Blount MD on 08/18/2019 3:39 PM
[2019-08-18] MEDS: VANCOMYCIN HCL 1.25 GM in SODIUM CHLORIDE 0.9% 250ML 250 ML IV SCH (17:28)
[2019-08-18] MEDS: FENTANYL CITRATE INJ 2,000 MCG in SODIUM CHLORIDE 0.9% 250ML 210 ML IV PRN (20:00)
[2019-08-18] MEDS: ATORVASTATIN 40 MG TAB PO SCH (20:16)
[2019-08-18] MEDS ORDERED: ATORVASTATIN 20 MG TAB PO SCH (21:00)
[2019-08-18] MEDS ORDERED: POTASSIUM CHLORIDE 20MEQ/15ML UDC NG ONE (21:25)
--- NOTE | 2019-08-18 21:25 | NUR ---
Pulmonary Critical Care Medicine DATE 08/18/2019 SUBJECTIVE CXR with bilateral infiltrates ~stable. ventilator 50% fio2, 10 peep tube feeds 30/hr fentanyl 25/hr, versed 10/hr patient awakens, often agitated REVIEW OF SYSTEMS: Cannot get due to intubated. PHYSICAL EXAMINATION: VITAL SIGNS: Reviewed per EMR GENERAL: on ventilator, can awaken HEENT: Normocephalic, atraumatic. NECK: Supple. Throat midline. LUNGS: Bilateral air entry, few rales. CARDIOVASCULAR: S1, S2. No murmurs, rubs, or gallops. ABDOMEN: Soft, nontender. EXTREMITIES: No clubbing, no cyanosis, trace edema pretibial. INTEGUMENT: No rash. No purpura. LABORATORY DATA/IMAGING: k 4.1, cr 1.12. wbc 11, hct 24, CXR: bilateral moderate lung infiltrates IMPRESSION: 1. Acute respiratory failure, intubated. ARDS 2. Treat for hospital-acquired pneumonia/hospital associated pneumonia. 3. Lymphocytic alveolitis, chronic interstitial lung disease. Rx as exacerbation. more likely hypersensitivity pneumonitis vs NSIP vs OP vs mycobacterial/fungal/other 4. Known coronary artery disease, acute/chronic systolic heart failure. Recent LVEF ~40-45% 5. Febrile syndrome, possible sepsis from pneumonia vs other sources. 6. Hypertension. 7. Diabetes. 8. Hyperlipidemia. 9. Anxiety. 10. shock, distributive +/- cardiogenic 11. immunosuppressed state negative flu assay. follow-up connective tissue disease screen steroids for lymphocytic alveolitis Follow up blood cultures and sputum culture and bronch cultures Give broad-spectrum antibiotics for resistant organisms. Lung protective ventilation. Diuresis as BP allows, escalated --extubate if ventilator oxygen requirements diminish --will have to account for the patient agitation when he is off sedation Thank you very much, Dr. Damon for allowing me a chance to participate in the care of Mr. Coe.
[2019-08-19] VITALS (26 sets, daily range): BP systolic 97–126; BP diastolic 49–78
[2019-08-19] MEDS: MIDAZOLAM HCL 25 MG in SODIUM CHLORIDE 0.9% 50ML 45 ML IV PRN ×3 (01:06→21:30)
[2019-08-19] MEDS: FENTANYL CITRATE INJ 2,000 MCG in SODIUM CHLORIDE 0.9% 250ML 210 ML IV PRN ×3 (02:42→21:00)
[2019-08-19] MEDS: ACETAMINOPHEN 325 MG TAB PO PRN (03:57)
[2019-08-19] MEDS: METHYLPREDNISOLONE SOD SUCC 40 MG/ML VIAL 1ML IV SCH ×3 (05:36→22:48)
[2019-08-19] MEDS: FUROSEMIDE INJ 10 MG/ML 2 ML VIAL IV SCH ×3 (05:36→22:48)
[2019-08-19 05:39] LABS: BASOPHILS % 0.1 % (0.0-1.0); HEMATOCRIT 24.3 % (38.2-49.6); HEMOGLOBIN 7.8 g/dL (14.0-18.0); LYMPHOCYTES # (AUTO) 0.4 (1.0-3.2); LYMPHOCYTES % 3.6 % (18.0-39.1); MEAN CORPUSCULAR HEMOGLOBIN 31.1 pg (28-32); MEAN CORPUSCULAR HGB CONC 32.1 g/dL (31-35); MEAN CORPUSCULAR VOLUME 96.8 fL (81-99); MONOCYTES # (AUTO) 0.4 (0.2-0.8); MONOCYTES % 3.6 % (4.4-11.3); NEUTROPHILS # (AUTO) 9.3 (2.1-6.9); NEUTROPHILS % 91.5 % (38.7-80.0); PLATELET COUNT 119 x10e3/uL (140-360); RED BLOOD COUNT 2.51 x10e6/uL (4.3-5.7); RED CELL DISTRIBUTION WIDTH 14.6 % (11.7-14.4)
[2019-08-19 05:55] LABS: ANION GAP 14.3 mmol/L (8-16); CALCIUM 8.4 mg/dL (8.4-10.2); CREATININE, SERUM 1.19 mg/dL (0.72-1.25); MAGNESIUM 2.2 MG/DL (1.3-2.1); POTASSIUM 4.3 mmol/L (3.5-5.1)
--- NOTE | 2019-08-19 07:50 | Diagnostic Imaging Report ---
EXAMINATION: CHEST SINGLE (PORTABLE) INDICATION: ^chf ^[id number] ^[id number] COMPARISON: 08/18/2019 FINDINGS: AP view TUBES and LINES: Stable endotracheal tube with tip 4.5 cm above the alison. Unchanged infradiaphragmatic NG/OG tube. LUNGS: Lungs are well inflated. Mildly improved bilateral pulmonary edema. Bibasilar atelectasis. PLEURA: Trace bilateral pleural effusions. No pneumothorax. HEART AND MEDIASTINUM: Stable mild enlargement of the cardiac silhouette. BONES AND SOFT TISSUES: No acute osseous lesion. Soft tissues are unremarkable. UPPER ABDOMEN: No free air under the diaphragm. IMPRESSION: Improvement in bilateral pulmonary edema. Signed by: Dr. Gunjan Shaver M.D. on 08/19/2019 7:46 AM
[2019-08-19 08:36] LABS: MONOCYTES % (MANUAL) 1 % (3.4-9.0); NEUTROPHILS % (MANUAL) 99 % (40-74); PLATELET ESTIMATE MODERATELY DECREASED; PLATELET MORPHOLOGY COMMENT NORMAL; RBC MORPHOLOGY COMMENT NORMAL
[2019-08-19] MEDS: ASPIRIN 81 MG CHEW TAB NG SCH (09:00)
[2019-08-19] MEDS: ENOXAPARIN SODIUM INJ 100 MG/ML SYR SC SCH ×2 (09:00→20:45)
[2019-08-19] MEDS: FAMOTIDINE 20 MG/2 ML VIAL IV SCH ×2 (09:00→16:38)
[2019-08-19] MEDS: CEFEPIME 1GM/NS 0.9% 50 ML 50 ML IV SCH ×2 (09:30→21:30)
[2019-08-19] MEDS: VALPROATE SOD INJ 500 MG in SODIUM CHLORIDE 0.9% 100 ML 100 ML IV SCH ×2 (12:00→20:45)
[2019-08-19] MEDS ORDERED: CHLOROTHIAZIDE SODIUM 500 MG VIAL IV ONE (12:15)
--- NOTE | 2019-08-19 12:15 | NUR ---
Pulmonary Critical Care Medicine DATE 08/19/2019 SUBJECTIVE tube feeds 50/hr water 30 q 6 hours intubated, on ventilator versed 10/, fentanyl 250/ intermittently gets agitated REVIEW OF SYSTEMS: Cannot get due to intubated. PHYSICAL EXAMINATION: VITAL SIGNS: Reviewed per EMR GENERAL: on ventilator, can awaken HEENT: Normocephalic, atraumatic. NECK: Supple. Throat midline. LUNGS: Bilateral air entry, few rales. CARDIOVASCULAR: S1, S2. No murmurs, rubs, or gallops. ABDOMEN: Soft, nontender. EXTREMITIES: No clubbing, no cyanosis, trace edema pretibial. INTEGUMENT: No rash. No purpura. LABORATORY DATA/IMAGING: k 4.3, hco3 31, cr 1.19. wbc 10, hct 24, plt 119 CXR: bilateral moderate infiltrates improved again IMPRESSION: 1. Acute respiratory failure, intubated. ARDS 2. Treat for hospital-acquired pneumonia/hospital associated pneumonia. 3. Lymphocytic alveolitis, chronic interstitial lung disease. Rx as exacerbation. more likely hypersensitivity pneumonitis vs NSIP vs OP vs mycobacterial/fungal/other 4. Known coronary artery disease, acute/chronic systolic heart failure. Recent LVEF ~40-45% 5. Febrile syndrome, possible sepsis from pneumonia vs other sources. 6. Hypertension. 7. Diabetes. 8. Hyperlipidemia. 9. Anxiety. 10. shock, distributive +/- cardiogenic 11. immunosuppressed state 12. agitation intermittent, delirium maintain intubated ventilator support up-escalate comfort meds getting close to extubation trials, wean ventilator Diuresis as BP allows --extubate if ventilator oxygen requirements diminish --will have to account for the patient agitation when he is off sedation negative flu assay. follow-up connective tissue disease screen steroids for lymphocytic alveolitis Follow up blood cultures and sputum culture and bronch cultures Give broad-spectrum antibiotics for resistant organisms. Lung protective ventilation. Thank you very much, Dr. Damon for allowing me a chance to participate in the care of Mr. Coe.
[2019-08-19] MEDS: FLUCONAZOLE 400MG/200ML BAG 200 ML IV SCH (13:00)
[2019-08-19] MEDS: QUETIAPINE FUMARATE 100 MG TAB PO SCH ×2 (14:00→22:00)
--- NOTE | 2019-08-19 17:04 | Progress Note ---
DATE: 08/19/2019 Cardiology Progress Note SUBJECTIVE: The patient remains intubated. The case was discussed with the family as well as nurse. PHYSICAL EXAMINATION: VITAL SIGNS: Temperature 100.4, heart rate 85, blood pressure 126/66, and O2 saturations 93%. No pressor use. Telemetry shows sinus rhythm/sinus bradycardia. CARDIOVASCULAR: Regular rhythm. Systolic murmur. LUNGS: Occasional rhonchi bilaterally. MEDICATIONS: Reviewed. The patient is on full dose Lovenox for anticoagulation. LABORATORY DATA: Hemoglobin is 7.8 today. Creatinine is 1.1. Sodium 149. Chest x-ray shows improvement in pulmonary edema. ASSESSMENT: 1. Coronary artery disease with moderate stenosis in all coronary vessels. 2. Geoor-ao-myxggdl systolic heart failure. 3. Left ventricular mural thrombus. RECOMMENDATIONS: The patient is currently intubated and is on anticoagulation. His cardiac medications were held due to his hypotension. If his blood pressure remains borderline, we will restart these medications within the next 12 to 24 hours based on his clinical response and hemodynamics. Overall, prognosis is guarded. Discussed with family. MD ALISHA Prather/YAMINIL /[id number]
[2019-08-19] MEDS: VANCOMYCIN HCL 1.25 GM in SODIUM CHLORIDE 0.9% 250ML 250 ML IV SCH (17:48)
[2019-08-19] MEDS ORDERED: ATROPINE SULFATE 1 MG/ML VIAL IV PRN (18:00)
--- NOTE | 2019-08-19 18:30 | Progress Note ---
DATE: 08/19/2019 SUBJECTIVE: Mr. Coe remains in the Intensive Care Unit, intubated and sedated. REVIEW OF SYSTEMS: Could not be obtained. Family at the bedside. PHYSICAL EXAMINATION: GENERAL: He is intubated, sedated. VITAL SIGNS: Temperature 99.6, heart rate of 68, respirations 16, blood pressure 105/59, and O2 saturation 100% on the vent. HEENT: Normocephalic. Not icteric. Oral intubation. CHEST: Few crackles bilaterally. HEART: S1, S2. No S3, S4, or murmur. ABDOMEN: Soft. Bowel sounds present. EXTREMITIES: No edema. MEDICATION LIST: Reviewed. LABORATORY DATA: Reviewed. His white count is 10.58. IMPRESSION: Respiratory failure due to [id number] congestive heart failure, followed by healthcare-associated pneumonia from interstitial lung disease. PLAN: I think the underlying problem is his heart and his pulmonary infiltrate, history of hypertension, history of hyperlipidemia, history of diabetes mellitus, history of aortic stenosis. To finish 8 days of antibiotic as ordered. Prognosis remains very [id number]. Discussed with the family. MD MIRTA Hernández/JENNIFER /[id number]
[2019-08-19] MEDS: ATORVASTATIN 40 MG TAB PO SCH (20:45)
[2019-08-20] VITALS (27 sets, daily range): BP systolic 93–132; BP diastolic 55–80
[2019-08-20] MEDS: FENTANYL CITRATE INJ 2,000 MCG in SODIUM CHLORIDE 0.9% 250ML 210 ML IV PRN ×2 (01:30→16:54)
[2019-08-20] MEDS: MIDAZOLAM HCL 25 MG in SODIUM CHLORIDE 0.9% 50ML 45 ML IV PRN ×3 (01:40→11:00)
[2019-08-20] MEDS: QUETIAPINE FUMARATE 100 MG TAB PO SCH ×3 (06:00→21:45)
[2019-08-20] MEDS: FUROSEMIDE INJ 10 MG/ML 2 ML VIAL IV SCH ×3 (06:30→21:46)
[2019-08-20] MEDS: METHYLPREDNISOLONE SOD SUCC 40 MG/ML VIAL 1ML IV SCH ×3 (06:30→21:46)
[2019-08-20] MEDS: FENTANYL CITRATE/PF 100MCG/2 ML INJ IV PRN (07:36)
--- NOTE | 2019-08-20 07:41 | Diagnostic Imaging Report ---
EXAMINATION: CHEST SINGLE (PORTABLE) INDICATION: Pneumonia. COMPARISON: Chest radiograph 08/19/2019. FINDINGS: TUBES and LINES: ET tube terminates 4.9 cm above the alison. Enteric tube terminates in the proximal stomach. LUNGS: Lungs are moderately inflated. There are decreasing bilateral interstitial opacities. Patchy opacities in the left mid and lower lung zones, decreased. PLEURA: No pleural effusion or pneumothorax. HEART AND MEDIASTINUM: The cardiomediastinal silhouette is mildly enlarged. BONES AND SOFT TISSUES: No acute osseous abnormality. UPPER ABDOMEN: No free air under the diaphragm. IMPRESSION: ET tube as above. No evidence of pneumothorax. Decreasing bilateral pulmonary interstitial edema. Infection is possible in the appropriate clinical setting. Signed by: Dr. Dariusz Blount MD on 08/20/2019 7:38 AM
[2019-08-20] MEDS: VALPROATE SOD INJ 500 MG in SODIUM CHLORIDE 0.9% 100 ML 100 ML IV SCH ×2 (08:31→21:44)
[2019-08-20] MEDS: ASPIRIN 81 MG CHEW TAB NG SCH (08:31)
[2019-08-20] MEDS: FAMOTIDINE 20 MG/2 ML VIAL IV SCH ×2 (08:31→16:58)
[2019-08-20] MEDS: ENOXAPARIN SODIUM INJ 100 MG/ML SYR SC SCH ×2 (08:32→21:44)
[2019-08-20] MEDS: CEFEPIME 1GM/NS 0.9% 50 ML 50 ML IV SCH ×2 (08:32→22:30)
--- NOTE | 2019-08-20 09:14 | NUR ---
patient became aggitated and ambu bag used x2 min. O2 increased to 80% and will attempt to wean back down over the shift. more calm now and sat's at 96%.
--- NOTE | 2019-08-20 12:15 | Diagnostic Imaging Report ---
EXAMINATION: CHEST XRAY LINE PLACEMENT INDICATION: Right PICC. COMPARISON: Chest radiograph 08/20/2019. FINDINGS: TUBES and LINES: Interval placement of a right PICC, the tip is somewhat obscured, but likely terminates in the right mid cephalic vein. ET tube terminates 4.3cm above the alison. Enteric tube terminates in the stomach. LUNGS: Lungs are moderately inflated. There are increasing multifocal interstitial and airspace opacities. PLEURA: Small bilateral pleural effusions. No evidence of pneumothorax. HEART AND MEDIASTINUM: The cardiomediastinal silhouette is mildly enlarged. BONES AND SOFT TISSUES: No acute osseous abnormality. UPPER ABDOMEN: No free air under the diaphragm. IMPRESSION: Interval placement of a right PICC, the tip is somewhat obscured, but likely terminates in the right brachiocephalic vein. Suggestive advancement by 4 cm. No evidence of pneumothorax. Increasing multifocal opacities, which may reflect pulmonary edema, although superimposed pneumonia is possible. Signed by: Dr. Dariusz Blount MD on 08/20/2019 12:11 PM
[2019-08-20] MEDS: FLUCONAZOLE 400MG/200ML BAG 200 ML IV SCH (12:23)
--- NOTE | 2019-08-20 13:11 | Diagnostic Imaging Report ---
EXAMINATION: CHEST XRAY LINE PLACEMENT INDICATION: Right PICC. COMPARISON: Chest radiograph 08/20/2019 at 1150 AM. FINDINGS: TUBES and LINES: Interval advancement of the right-sided PICC, likely terminating in the upper SVC. ET tube terminates 4.9 cm above the alison. Enteric tube terminates in the stomach. LUNGS: Lungs are moderately inflated. There are slightly decreased multifocal interstitial and airspace opacities. PLEURA: Small bilateral pleural effusions. No evidence of pneumothorax. HEART AND MEDIASTINUM: The cardiomediastinal silhouette is mildly enlarged. BONES AND SOFT TISSUES: No acute osseous abnormality. UPPER ABDOMEN: No free air under the diaphragm. IMPRESSION: Interval advancement of right-sided PICC, likely terminating in the upper SVC in satisfactory position. No evidence of pneumothorax. Slightly decreased multifocal opacities, which may reflect pulmonary edema, although superimposed pneumonia is possible. Signed by: Dr. Dariusz Blount MD on 08/20/2019 1:08 PM
[2019-08-20] MEDS ORDERED: CHLOROTHIAZIDE SODIUM 500 MG VIAL IV NR (13:30)
--- NOTE | 2019-08-20 13:50 | Progress Note ---
DATE: 08/20/2019 Cardiology Progress Note SUBJECTIVE: Mr. Coe remains intubated. Care was discussed with his nurse. PHYSICAL EXAMINATION: VITAL SIGNS: Temperature 99.4, heart rate 78, and blood pressure is 138/70. CARDIOVASCULAR: Regular rhythm, systolic murmur. LUNGS: Occasional rhonchi bilaterally. ABDOMEN: Soft and distended. LABORATORY DATA: Telemetry shows sinus rhythm/bradycardia. Hemoglobin is 7.8. Renal function is normal. ASSESSMENT: 1. Coronary artery disease with moderate stenosis in all coronary vessels. 2. Bclip-tw-jtzlasy systolic heart failure. 3. Left ventricular mural thrombus. RECOMMENDATIONS: The patient has been hemodynamically stable, however, he has had bradycardia requiring atropine yesterday. At this point, he is stable without need for any further heart rate support given his coronary artery disease. Beta-natanael can be re-initiated once the patient is hemodynamically stable. We will continue to follow closely. MD ALISHA Prather/JENNIFER /[id number]
--- NOTE | 2019-08-20 14:06 | NUR ---
Pulmonary Critical Care Medicine DATE 08/20/2019 SUBJECTIVE in .9 / out 2.9 in 12 hr shift tuibe feeds 60/hr water 30 q4 hrs intubated, on ventilator. 60% fio2 mostly, 10 peep REVIEW OF SYSTEMS: Cannot get due to intubated. PHYSICAL EXAMINATION: VITAL SIGNS: Reviewed per EMR GENERAL: on ventilator, can awaken HEENT: Normocephalic, atraumatic. NECK: Supple. Throat midline. LUNGS: Bilateral air entry, few rales. CARDIOVASCULAR: S1, S2. No murmurs, rubs, or gallops. ABDOMEN: Soft, nontender. EXTREMITIES: No clubbing, no cyanosis, trace edema pretibial. INTEGUMENT: No rash. No purpura. LABORATORY DATA/IMAGING: k 4.3, cr 1.28, wbc 10, hct 24, plt 119 CXR: bilateral moderate infiltrates stable IMPRESSION: 1. Acute respiratory failure, intubated. ARDS 2. Treat for hospital-acquired pneumonia/hospital associated pneumonia. 3. Lymphocytic alveolitis, chronic interstitial lung disease. Rx as exacerbation. more likely hypersensitivity pneumonitis vs NSIP vs OP vs mycobacterial/fungal/other 4. Known coronary artery disease, acute/chronic systolic heart failure. Recent LVEF ~40-45% 5. Febrile syndrome, possible sepsis from pneumonia vs other sources. 6. Hypertension. 7. Diabetes. 8. Hyperlipidemia. 9. Anxiety. 10. shock, distributive +/- cardiogenic 11. immunosuppressed state 12. agitation intermittent, delirium maintain intubated ventilator support up-escalate comfort meds getting close to extubation trials, wean ventilator Diuresis as BP allows --extubate if ventilator oxygen requirements diminish --will have to account for the patient agitation when he is off sedation, may require a fast SBT / extubation negative flu assay. follow-up connective tissue disease screen steroids for lymphocytic alveolitis, increase Follow up blood cultures and sputum culture and bronch cultures continue antibiotics Lung protective ventilation. Thank you very much, Dr. Damon for allowing me a chance to participate in the care of Mr. Coe.
--- NOTE | 2019-08-20 14:11 | NUR ---
progress note [id number] MIN
[2019-08-20] MEDS: VANCOMYCIN HCL 1.25 GM in SODIUM CHLORIDE 0.9% 250ML 250 ML IV SCH (16:58)
[2019-08-20] MEDS: LACTULOSE SYRUP 20 GM/30 ML UDC PO PRN (17:10)
[2019-08-20] MEDS: ATORVASTATIN 40 MG TAB PO SCH (21:44)
[2019-08-20] MEDS: ACETAMINOPHEN 325 MG TAB PO PRN (22:37)
[2019-08-21] VITALS (27 sets, daily range): BP systolic 105–139; BP diastolic 54–79
[2019-08-21] MEDS: FENTANYL CITRATE INJ 2,000 MCG in SODIUM CHLORIDE 0.9% 250ML 210 ML IV PRN (00:30)
[2019-08-21] MEDS: MIDAZOLAM HCL 25 MG in SODIUM CHLORIDE 0.9% 50ML 45 ML IV PRN ×3 (00:55→21:00)
[2019-08-21] MEDS: ACETAMINOPHEN 325 MG TAB PO PRN (05:11)
[2019-08-21] MEDS: FUROSEMIDE INJ 10 MG/ML 2 ML VIAL IV SCH ×3 (05:12→21:02)
[2019-08-21] MEDS: QUETIAPINE FUMARATE 100 MG TAB PO SCH ×3 (05:12→21:40)
[2019-08-21] MEDS: METHYLPREDNISOLONE SOD SUCC 40 MG/ML VIAL 1ML IV SCH ×3 (05:12→21:02)
[2019-08-21 05:52] LABS: BASOPHILS % 0.1 % (0.0-1.0); HEMATOCRIT 24.3 % (38.2-49.6); HEMOGLOBIN 7.9 g/dL (14.0-18.0); LYMPHOCYTES # (AUTO) 0.3 (1.0-3.2); MEAN CORPUSCULAR HEMOGLOBIN 31.3 pg (28-32); MEAN CORPUSCULAR HGB CONC 32.5 g/dL (31-35); MEAN CORPUSCULAR VOLUME 96.4 fL (81-99); MONOCYTES # (AUTO) 0.3 (0.2-0.8); NEUTROPHILS # (AUTO) 9.3 (2.1-6.9); NEUTROPHILS % 92.6 % (38.7-80.0); PLATELET COUNT 133 x10e3/uL (140-360); RED BLOOD COUNT 2.52 x10e6/uL (4.3-5.7); RED CELL DISTRIBUTION WIDTH 14.4 % (11.7-14.4)
[2019-08-21 05:57] LABS: ANION GAP 15.6 mmol/L (8-16); BLOOD UREA NITROGEN 43 mg/dL (7-26); BUN/CREATININE RATIO 37 (6-25); CALCIUM 8.3 mg/dL (8.4-10.2); CARBON DIOXIDE 36 mmol/L (22-29); CHLORIDE 101 mmol/L (98-107); CREATININE, SERUM 1.15 mg/dL (0.72-1.25); EST GLOMERULAR FILTRATION RATE > 60 ML/MIN (60-); GLUCOSE 142 mg/dL (74-118); POTASSIUM 3.6 mmol/L (3.5-5.1); SODIUM 149 mmol/L (136-145)
--- NOTE | 2019-08-21 09:04 | Diagnostic Imaging Report ---
EXAMINATION: CHEST SINGLE (PORTABLE) INDICATION: Respiratory failure, pneumonia COMPARISON: Chest radiograph 08/20/2019 FINDINGS: LINES/TUBES:Endotracheal tube terminates approximately 3 cm above the alison. Enteric tube projects below the diaphragm with tip and side-port in the stomach. Right PICC line terminates in the superior vena cava. LUNGS:The lungs are moderately inflated. There is perihilar fullness and indistinctness of the pulmonary vasculature. PLEURA:No pleural effusion or pneumothorax. MEDIASTINUM:The cardiomediastinal silhouette appears unchanged in size and shape. BONES/SOFT TISSUES:No acute osseous injury. ABDOMEN:No free air under the diaphragm. IMPRESSION: Unchanged mild pulmonary edema. Signed by: Darby Bradley MD on 08/21/2019 9:01 AM
[2019-08-21] MEDS: FAMOTIDINE 20 MG/2 ML VIAL IV SCH ×2 (09:19→17:38)
[2019-08-21] MEDS: CEFEPIME 1GM/NS 0.9% 50 ML 50 ML IV SCH ×2 (09:19→21:11)
[2019-08-21] MEDS: VALPROATE SOD INJ 500 MG in SODIUM CHLORIDE 0.9% 100 ML 100 ML IV SCH ×2 (09:19→21:31)
[2019-08-21] MEDS: ASPIRIN 81 MG CHEW TAB NG SCH (09:19)
[2019-08-21] MEDS: ENOXAPARIN SODIUM INJ 100 MG/ML SYR SC SCH ×2 (09:19→21:02)
[2019-08-21 11:10] LABS: LYMPHOCYTES % (MANUAL) 2 % (19-48); NEUTROPHILS % (MANUAL) 98 % (40-74); PLATELET ESTIMATE ADEQUATE; PLATELET MORPHOLOGY COMMENT NORMAL; RBC MORPHOLOGY COMMENT NORMAL
--- NOTE | 2019-08-21 12:03 | Progress Note ---
DATE: 08/20/2019 SUBJECTIVE: Mr. Coe remains in intensive care unit, had a very long discussion with his again and with Pulmonary and with medical team. The patient remains on the ventilator. PHYSICAL EXAMINATION: HEENT: Not icteric. Oral intubation. CHEST: Few rhonchi bilateral. COR: S1 and S2. No S3, S4, or murmur. ABDOMEN: Soft, bowel sounds present. No tenderness. EXTREMITIES: No edema. SKIN: No rash. IMPRESSION: Respiratory failure. I think the main issue is his cardiac and pulmonary status. The patient does have congestive heart failure while he may have community-acquired health related pneumonia, but I think the main issue really is his cardiac condition. His laboratory data reviewed. His chart reviewed. Please refer to my notes in the chart. Discussed with family at length. Continue with the same. We talked about he may need trach versus prognosis remains very guarded to poor. We will continue the same for the time being. Discussed with all parties. MD MIRTA Hernández/MODL /[id number]
--- NOTE | 2019-08-21 13:20 | NUR ---
ORDER FOR LTAC EVAL PT'S SIGNED CHOICE LETTER FOR [facility] MOT INITIATED AND PLACED ON PT'S CHART JILL DAVIDSON WITH [employer] NOTIFIED OF CONSULT PER ALICIA RICH "DR EARL AWARE OF LTAC EVAL AND WON'T BE READY FOR TRANSFER FOR A COUPLE OF DAYS" CM CALLED DR EARL WHO STATES THERE ARE "SOME MEDICINE/PROCESS ISSUES TO WORK WITH".
[2019-08-21] MEDS: FLUCONAZOLE 400MG/200ML BAG 200 ML IV SCH (13:36)
--- NOTE | 2019-08-21 16:41 | Progress Note ---
DATE: 08/21/2019 SUBJECTIVE: Mr. Coe remains in intensive care unit, remains intubated. Again, I had discussion today with the medical team and the . Today, she changed her mind. She would like us to be aggressive. She is also willing to move him towards the [place]. Discussed with Dr. Ortiz. The patient, who is intubated and sedated. PHYSICAL EXAMINATION: GENERAL: Noncommunicative, intubated, and sedated. VITAL SIGNS: Stable, afebrile. HEENT: He is not icteric. NECK: Supple. CHEST: Crackles bilateral. COR: S1 and S2. No S3, S4, or murmur. ABDOMEN: Soft. Bowel sounds present. No tenderness. EXTREMITIES: No edema. LABORATORY DATA: White count is 10.04 and his hemoglobin 7.9. Sodium 149 and potassium 3.6. His MEGHAN screen was negative. C-ANCA was negative. P-ANCA was negative and myeloperoxidase antibody was negative. IMPRESSION: Respiratory failure, cardiogenic, [id number]. Underlying lung disease is a possibility, coronary artery disease, and healthcare-associated pneumonia resolved. From Infectious Disease point of view, weaning is a problem. Discussed with the family at length. Now, they would like to be aggressive. We will move the patient to [place]. Pulmonary and Cardiology is following the patient. MD MIRTA Hernández/JENNIFER /[id number]
[2019-08-21] MEDS ORDERED: EYE IRRIGATION (OPTH) 120 ML BTL OP ONE (17:00)
[2019-08-21] MEDS: VANCOMYCIN HCL 1.25 GM in SODIUM CHLORIDE 0.9% 250ML 250 ML IV SCH (17:00)
--- NOTE | 2019-08-21 19:02 | Progress Note ---
DATE: 08/21/2019 Cardiology Progress Note SUBJECTIVE: No major events overnight. Remains intubated. OBJECTIVE: VITAL SIGNS: Temperature 100.2, pulse 74, respiratory rate 16, blood pressure 122/66, and saturating 97% on mechanical ventilation. GENERAL: Elderly man, intubated and sedated. No acute distress. CARDIOVASCULAR: Regular rate and rhythm. No murmurs, rubs, or gallops. LUNGS: Decreased breath sounds in bilateral bases. Occasional rhonchi. ABDOMEN: Soft, mildly distended. INPATIENT MEDICATIONS: Reviewed. LABORATORY DATA: Reviewed. TELEMETRY DATA: Reviewed. Shows normal sinus rhythm. ASSESSMENT AND PLAN: 1. Coronary artery disease, nonobstructive. 2. [id number] systolic heart failure exacerbation. 3. Left ventricular mural thrombus. RECOMMENDATION: Hemodynamically stable. No more bradycardia today. Continue to hold beta blockers for now until respiratory status improves. Continue anticoagulation with full-dose Lovenox. Bridge to warfarin once he gets closer to discharge. Thank you for this consult. We will continue to follow. MD TANI Irwin/JENNIFER /[id number]
[2019-08-21] MEDS: ATORVASTATIN 40 MG TAB PO SCH (21:02)
[2019-08-21] MEDS ORDERED: POTASSIUM CHLORIDE 20MEQ/15ML UDC NG ONE (21:12)
--- NOTE | 2019-08-21 21:12 | NUR ---
Pulmonary Critical Care Medicine DATE 08/21/2019 SUBJECTIVE In 4.0 / out 4.6 recorded CXR bilateral lung opacities, minimally better on ventilator, peep 10, fio2 50-70%? fio2 being mobilized often due to awakenings and patient mobilization REVIEW OF SYSTEMS: Cannot get due to intubated. PHYSICAL EXAMINATION: VITAL SIGNS: Reviewed per EMR GENERAL: on ventilator, can awaken HEENT: Normocephalic, atraumatic. NECK: Supple. Throat midline. LUNGS: Bilateral air entry, few rales. CARDIOVASCULAR: S1, S2. No murmurs, rubs, or gallops. ABDOMEN: Soft, nontender. EXTREMITIES: No clubbing, no cyanosis, trace edema pretibial. INTEGUMENT: No rash. No purpura. LABORATORY DATA/IMAGING: k 3.6, cr 1.15, wbc 10, hct 24, plt 133 CXR: bilateral moderate infiltrates IMPRESSION: 1. Acute respiratory failure, intubated. ARDS 2. Treat for hospital-acquired pneumonia/hospital associated pneumonia, gram negative type. 3. Chronic interstitial lung disease with exacerbation, lymphocytic alveolitis. more likely hypersensitivity pneumonitis vs NSIP vs OP vs mycobacterial/fungal/other 4. Known coronary artery disease, acute/chronic systolic heart failure. Recent LVEF ~40-45% 5. Febrile syndrome, possible sepsis from pneumonia vs other sources. 6. Hypertension. 7. Diabetes. 8. Hyperlipidemia. 9. Anxiety. 10. shock, distributive +/- cardiogenic. 11. immunosuppressed state 12. agitation intermittent, delirium maintain intubated ventilator support up-escalate comfort meds getting close to extubation trials, wean ventilator Diuresis as BP allows --extubate if ventilator oxygen requirements diminish --will have to account for the patient agitation when he is off sedation, may require a fast SBT / extubation follow-up connective tissue disease screen. MEGHAN / ANCA / RF / complements negative. Legionella/influenza Ags negative. steroids for lymphocytic alveolitis Follow up blood cultures and sputum culture and bronch cultures continue antibiotics Lung protective ventilation. Thank you very much, Dr. Damon for allowing me a chance to participate in the care of Mr. Coe.
[2019-08-21] MEDS ORDERED: POTASSIUM CHLORIDE 20MEQ/15ML UDC NG PRN (21:30)
[2019-08-21] MEDS ORDERED: FUROSEMIDE INJ 10 MG/ML 2 ML VIAL IV SCH (22:00)
[2019-08-22] VITALS (25 sets, daily range): BP systolic 97–138; BP diastolic 54–83
[2019-08-22] MEDS: MIDAZOLAM HCL 25 MG in SODIUM CHLORIDE 0.9% 50ML 45 ML IV PRN ×2 (01:00→22:00)
[2019-08-22 05:46] LABS: ANION GAP 10.7 mmol/L (8-16); BLOOD UREA NITROGEN 42 mg/dL (7-26); BUN/CREATININE RATIO 42 (6-25); CALCIUM 8.2 mg/dL (8.4-10.2); CHLORIDE 100 mmol/L (98-107); EST GLOMERULAR FILTRATION RATE > 60 ML/MIN (60-); GLUCOSE 179 mg/dL (74-118); MAGNESIUM 2.4 MG/DL (1.3-2.1); PHOSPHORUS 3.2 MG/DL (2.3-4.7); POTASSIUM 3.7 mmol/L (3.5-5.1); SODIUM 148 mmol/L (136-145)
[2019-08-22 05:54] LABS: CARBON DIOXIDE 41 mmol/L (22-29)
[2019-08-22] MEDS: QUETIAPINE FUMARATE 100 MG TAB PO SCH ×3 (07:12→21:48)
[2019-08-22] MEDS: LACTULOSE SYRUP 20 GM/30 ML UDC PO PRN (07:12)
[2019-08-22] MEDS: METHYLPREDNISOLONE SOD SUCC 40 MG/ML VIAL 1ML IV SCH ×3 (07:12→21:48)
[2019-08-22] MEDS: FUROSEMIDE INJ 10 MG/ML 2 ML VIAL IV SCH ×3 (07:34→21:48)
--- NOTE | 2019-08-22 08:28 | Diagnostic Imaging Report ---
EXAM: CHEST SINGLE (PORTABLE) DATE: 08/22/2019 5:00 AM INDICATION: ARDS COMPARISON: 08/21/2019 FINDINGS: Endotracheal tube and right upper trachea PICC line identified in stable position. Enteric tube noted coursing below the diaphragm. The trachea is midline. There are bilateral increased interstitial and airspace opacities, unchanged from the prior examination. There is no evidence for new large focal consolidation, pneumothorax, or significant pleural effusion. The cardiomediastinal silhouette is stable in appearance. No acute osseous abnormality is identified. IMPRESSION: No significant interval change from 08/21/2019. Signed by: Dr. Jair Thayer MD on 08/22/2019 8:25 AM
[2019-08-22] MEDS: ACETAZOLAMIDE SODIUM 500 MG/VIAL IV SCH ×2 (08:31→21:48)
[2019-08-22] MEDS: VALPROATE SOD INJ 500 MG in SODIUM CHLORIDE 0.9% 100 ML 100 ML IV SCH ×2 (08:31→21:48)
[2019-08-22] MEDS: CEFEPIME 1GM/NS 0.9% 50 ML 50 ML IV SCH (08:34)
[2019-08-22] MEDS: FAMOTIDINE 20 MG/2 ML VIAL IV SCH ×2 (08:34→18:56)
[2019-08-22] MEDS: ENOXAPARIN SODIUM INJ 100 MG/ML SYR SC SCH ×2 (08:34→21:43)
[2019-08-22] MEDS: ASPIRIN 81 MG CHEW TAB NG SCH (08:35)
--- NOTE | 2019-08-22 10:59 | NUR ---
YESTERDAY REC'D ORDER FOR LTAC EVAL EVAL COMPLETE BED TO BE ASSIGNED WHEN DC ORDER OBTAINED DC THIS AM BY DR Vincent ZARCO IF OK WITH DR RAJAT LONDON AWARE OF SITUATION CALL PLACED BY ME TO DR EARL; NO RESPONSE ASKED NURSE ROGELIO RN TO CALL DR EARL AND ASK FOR DC ORDER SHE ASKED THAT I ESCALATE CALL TO TUFTER OPERATOR JAE ESCALATED TO JAE FOR DC ORDER PLAN TRANSFER WHEN ORDER REC'D FROM RAJAT
--- NOTE | 2019-08-22 11:23 | Diagnostic Imaging Report ---
EXAM: ABDOMEN-1VIEW (KUB) DATE: 08/22/2019 9:24 AM INDICATION: No bowel movement for several days COMPARISON: None FINDINGS: Bowel gas pattern appears nonspecific but nonobstructive. No pathologically dilated loops of bowel are identified. No intraperitoneal free air is appreciated on this supine view examination. No abnormal intra-abdominal calcification is identified. Post surgical changes from left hip arthroplasty noted. There are degenerative changes of the lumbosacral spine. No acute osseous abnormality is identified. IMPRESSION: No acute radiographic abnormality identified within the abdomen. Signed by: Dr. Jair Thayer MD on 08/22/2019 11:19 AM
[2019-08-22] MEDS: FLUCONAZOLE 400MG/200ML BAG 200 ML IV SCH (11:46)
[2019-08-22] MEDS: ACETAMINOPHEN 325 MG TAB PO PRN ×2 (15:39→21:49)
--- NOTE | 2019-08-22 15:50 | NUR ---
WOUND CARE SCREENING /CONSULTATION R/T 10 KHLOE : THIS IS 58 YEAR OLD FEMALE PATIENT. 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 PT PRESENT WITH NO SKIN ALTERATIONS OR INJURIES AT THIS TIME NURSING TO CONTINUE TO MAINTAIN STRICT PUP STATUS AND INTERVENTIONS CONTINUE ALTERNATING PRESSURE SURFACE , Q 2 HOUR TURNING AND PILLOW SUSPENSION OF HEELS WHEN IN BED NURSING TO CONSULT WOUND CARE NEEDED FOR FUTURE SKIN CARE OR WOUND CONCERNS Addendum: 08/22/19 at 1552 by Lorena Ellsworth RN Amended: Links added.
--- NOTE | 2019-08-22 20:34 | NUR ---
Pulmonary Critical Care Medicine DATE 08/22/2019 SUBJECTIVE intubated 50% fio2, 10 peep fentanyl 300/, versed 5/ tube feeds tolerated 60/hr, water 30 q4 hrs fever noted REVIEW OF SYSTEMS: Cannot get due to intubated. PHYSICAL EXAMINATION: VITAL SIGNS: Reviewed per EMR GENERAL: on ventilator, can awaken HEENT: Normocephalic, atraumatic. NECK: Supple. Throat midline. LUNGS: Bilateral air entry, few rales. CARDIOVASCULAR: S1, S2. No murmurs, rubs, or gallops. ABDOMEN: Soft, nontender. EXTREMITIES: No clubbing, no cyanosis, trace edema pretibial. INTEGUMENT: No rash. No purpura. LABORATORY DATA/IMAGING: k 3.7, hco3 41, cr 1.0. 10 wbc, hct 24 CXR: bilateral moderate infiltrates mild improved IMPRESSION: 1. Acute respiratory failure, intubated. ARDS 2. Treat for hospital-acquired pneumonia/hospital associated pneumonia, gram negative type. 3. Chronic interstitial lung disease with exacerbation, lymphocytic alveolitis. more likely hypersensitivity pneumonitis vs NSIP vs OP vs mycobacterial/fungal/other 4. Known coronary artery disease, acute/chronic systolic heart failure. Recent LVEF ~40-45% 5. Febrile syndrome, possible sepsis from pneumonia vs other sources. 6. Hypertension. 7. Diabetes. 8. Hyperlipidemia. 9. Anxiety. 10. shock, distributive +/- cardiogenic. 11. immunosuppressed state 12. agitation intermittent, delirium maintain intubated ventilator support continue comfort meds getting close to extubation trials, wean ventilator. If going to LTAC will consider extubation at LTAC Diuresis as BP allows --extubate if ventilator oxygen requirements diminish --will have to account for the patient agitation when he is off sedation, may require a fast SBT / extubation follow-up connective tissue disease screen. MEGHAN / ANCA / RF / complements negative. Legionella/influenza Ags negative. steroids for lymphocytic alveolitis Follow up blood cultures and sputum culture and bronch cultures continue antibiotics Lung protective ventilation. Thank you very much, Dr. Damon for allowing me a chance to participate in the care of Mr. Coe.
[2019-08-22] MEDS: FENTANYL CITRATE INJ 2,000 MCG in SODIUM CHLORIDE 0.9% 250ML 210 ML IV PRN (21:15)
[2019-08-22] MEDS: ATORVASTATIN 40 MG TAB PO SCH (21:43)
[2019-08-23] VITALS (16 sets, daily range): BP systolic 101–126; BP diastolic 56–77
[2019-08-23] MEDS: MIDAZOLAM HCL 25 MG in SODIUM CHLORIDE 0.9% 50ML 45 ML IV PRN (03:54)
[2019-08-23] MEDS: FENTANYL CITRATE INJ 2,000 MCG in SODIUM CHLORIDE 0.9% 250ML 210 ML IV PRN (04:03)
[2019-08-23 05:50] LABS: ANION GAP 13.8 mmol/L (8-16); BLOOD UREA NITROGEN 48 mg/dL (7-26); BUN/CREATININE RATIO 44 (6-25); CALCIUM 8.1 mg/dL (8.4-10.2); CARBON DIOXIDE 36 mmol/L (22-29); CHLORIDE 99 mmol/L (98-107); EST GLOMERULAR FILTRATION RATE > 60 ML/MIN (60-); GLUCOSE 174 mg/dL (74-118); MAGNESIUM 2.6 MG/DL (1.3-2.1); PHOSPHORUS 3.4 MG/DL (2.3-4.7); POTASSIUM 3.8 mmol/L (3.5-5.1); SODIUM 145 mmol/L (136-145)
[2019-08-23] MEDS: METHYLPREDNISOLONE SOD SUCC 40 MG/ML VIAL 1ML IV SCH ×2 (06:30→13:11)
[2019-08-23] MEDS: QUETIAPINE FUMARATE 100 MG TAB PO SCH ×2 (06:30→13:11)
[2019-08-23] MEDS: FUROSEMIDE INJ 10 MG/ML 2 ML VIAL IV SCH ×2 (06:30→13:11)
[2019-08-23] MEDS: LACTULOSE SYRUP 20 GM/30 ML UDC PO PRN (06:30)
[2019-08-23] MEDS: FAMOTIDINE 20 MG/2 ML VIAL IV SCH (08:01)
[2019-08-23] MEDS: ASPIRIN 81 MG CHEW TAB NG SCH (08:01)
[2019-08-23] MEDS: ENOXAPARIN SODIUM INJ 100 MG/ML SYR SC SCH (08:01)
[2019-08-23] MEDS: ACETAZOLAMIDE SODIUM 500 MG/VIAL IV SCH (08:01)
[2019-08-23] MEDS: VALPROATE SOD INJ 500 MG in SODIUM CHLORIDE 0.9% 100 ML 100 ML IV SCH (08:33)
--- NOTE | 2019-08-23 08:40 | Diagnostic Imaging Report ---
Chest, 1 view, 08/23/2019. History: ARDS, sepsis. Comparison: 08/22/2019. Findings: The cardiomediastinal silhouette and pulmonary vasculature are prominent. Diffuse bilateral alveolar opacities are unchanged. ET tube, NG tube, and right upper extremity PICC are unchanged in position. There are no acute osseous or soft tissue abnormalities. Impression: No significant change in diffuse bilateral pulmonary opacities. Signed by: Vj Buckner on 08/23/2019 8:37 AM
--- NOTE | 2019-08-23 09:35 | NUR ---
SPOKE WITH NURSE WHO STATES DR EARL OK WITH DC TO [facility] BUT WANTS US TO NOTIFY DR GILL OF PT'S TEMP CM CALLED AND SPOKE WITH DR GILL WHO IS AWARE OF FEVER AND WILL "DEAL WITH IT AT [facility]" OK TO DISCHARGE
--- NOTE | 2019-08-23 09:36 | NUR ---
CM CALLED JILL DAVIDSON AT [facility] AND REQUESTED ICU BED AND MOT INFO CM ASKED NURSE TO FAX NOV TO [facility] AT [phone]
--- NOTE | 2019-08-23 12:38 | NUR ---
Pulmonary Critical Care Medicine DATE 08/23/2019 SUBJECTIVE vital 1.2 at 60/hr water 30 cc q 4 hrs intubated, on ventilator. 50% fio2, 10 peep CXR stable infiltrates fevers reported REVIEW OF SYSTEMS: Cannot get, intubated. PHYSICAL EXAMINATION: VITAL SIGNS: Reviewed per EMR GENERAL: on ventilator, can awaken HEENT: Normocephalic, atraumatic. NECK: Supple. Throat midline. LUNGS: Bilateral air entry, few rales. CARDIOVASCULAR: S1, S2. No murmurs, rubs, or gallops. ABDOMEN: Soft, nontender. EXTREMITIES: No clubbing, no cyanosis, trace edema pretibial. INTEGUMENT: No rash. No purpura. LABORATORY DATA/IMAGING: k 3.8, cr 1.1. hco3 36. CXR: bilateral moderate infiltrates IMPRESSION: 1. Acute respiratory failure, intubated. ARDS 2. Treat for hospital-acquired pneumonia/hospital associated pneumonia, gram negative type. 3. Chronic interstitial lung disease with exacerbation, lymphocytic alveolitis. more likely hypersensitivity pneumonitis vs NSIP vs OP vs mycobacterial/fungal/other 4. Known coronary artery disease, acute/chronic systolic heart failure. Recent LVEF ~40-45% 5. Febrile syndrome, possible sepsis from pneumonia vs other sources. 6. Hypertension. 7. Diabetes. 8. Hyperlipidemia. 9. Anxiety. 10. shock, distributive +/- cardiogenic. 11. immunosuppressed state 12. agitation intermittent, delirium maintain intubated ventilator support continue comfort meds getting close to extubation trials, wean ventilator. If going to LTAC will consider extubation at LTAC Diuresis as BP allows --extubate if ventilator oxygen requirements diminish --will have to account for the patient agitation when he is off sedation, may require a fast SBT / extubation MEGHAN / ANCA / RF / complements / LAC negative. Legionella/influenza Ags negative. steroids for lymphocytic alveolitis Follow up AFB cultures continue to follow fevers. Abx per ID, on hold Lung protective ventilation. Thank you very much, Dr. Damon for allowing me a chance to participate in the care of Mr. Coe.
--- NOTE | 2019-08-23 14:58 | NUR ---
Per Dr. Damon patient can transfer to [facility] [facility] if Dr. Ortiz agrees. Dr. Ortiz informed and ok with transfer as long as Dr. Caceres is aware of patients fever of 102. Dr. Caceres informed of patient's rectal temp 102 (no new orders given) and is ok with transfer. Dr. Ortiz aware of lack of bowel moments/KUB results and updated on pt during rounds. Tylenol suppository administered. Report given to Kiley RICH. Patient transported to ICU Bed 5 at [facility] at 1410 by [facility] drier.
--- NOTE | 2019-09-17 23:32 | Discharge Summary ---
CHIEF COMPLAINT: Shortness of breath. FINAL DIAGNOSES: Respiratory failure, acute respiratory distress syndrome, multifocal pneumonia, coronary artery disease, anemia. DISPOSITION: Continue vent management and transfer to [facility]. HOSPITAL COURSE: A 73-year-old male complaining of shortness of breath, cough, congestion, and fever, ongoing for the last shows at home. He underwent evaluation in the ER, noted to have shortness of breath, cough, congestion, and fever and due to his respiratory distress, the patient was intubated, upgraded to ICU with vent management for continued care regarding findings of acute respiratory failure, currently intubated and sedated. Concern for underlying healthcare-associated pneumonia. Sepsis secondary to healthcare-associated pneumonia. Lactic acidosis, leukocytosis, and febrile. Consultants, Pulmonary, Dr. Ortiz for care regarding the intubated state of the patient. Following his extensive review and evaluation of the patient, his impression was acute hypoxemic respiratory failure, currently intubated. Treated for hospital-acquired pneumonia/hospital-associated pneumonia. Chronic interstitial lung disease, recently improving, possible exacerbation. Known coronary artery disease, chronic acute systolic heart failure, febrile syndrome, possible acquired sepsis prior to admission from pneumonia versus other sources. Hypertension, hyperlipidemia, anxiety, hypertension, not shock. We will be awaiting the flu studies to return. Consideration was made for bronchoscopy for diagnostic purposes. Continue the IV antibiotic. Further consultants with Dr. Caceres regarding sepsis, Infectious Disease, related to the pneumonia. With his evaluation of the patient, his review and impression was acute respiratory failure, pneumonia, probably aspiration/healthcare-associated pneumonia, congestive heart failure. Sepsis on admission. We will be placing the patient on vancomycin and cefepime. Discussion with the led to her request that the patient be placed on DNR at present time and just wants comfort measures only. The patient was being seen also by Cardiology, Dr. Ren, regarding coronary artery disease and with her review of the patient, her impression was acute hypoxic respiratory failure, currently on mechanical vent, hospital-acquired pneumonia, interstitial lung disease, [id number] systolic heart failure, moderate coronary artery disease, hypertension, hyperlipidemia, diabetes mellitus, and moderate aortic stenosis with stent. Recommend diuresis as blood pressure tolerates. Recommend continuing cardiac medication, specifically the aspirin, Plavix, and statin. Resume Xarelto for his known mural thrombus, currently the Entresto and carvedilol are on hold due to hypotension. Procedures, Dr. Ortiz, on 08/14/2019, bronchoscopy with washes and BAL. Indications of respiratory failure, chronic interstitial lung disease, febrile syndrome. The procedure was carried out. There were no complications. There was no blood loss. The bronchoscopy was successful. The scope was removed from the patient and the patient was brought to the recovery room on the ventilator. The patient will be maintained on ventilator status at this time per Dr. Ortiz. As stated, the patient was in the ICU on vent, intubated, noted to be alert and responsive, recovering from the bronchoscopy. His medications were continued. He was on conscious sedation while being vented. He was receiving IV antibiotics and IV steroids. His kidney functions are being monitored. Prognosis was noted to be guarded at this time. Tolerating well with the antibiotic. The vent was continuing and continued to be sedated. He was on tube feeding. The cultures from the yeast . Ultimately, bronchoscopy was revealing yeast. He was started on antifungal agent. He was also noted to be running elevated white count. He was developing anemia at present. He was growing mild temperature at about 100. Prognosis was remaining guarded. Discussions are being made for LTAC person for further continuation of his management of care and with Case Management assistance, the patient was able to be transferred to [facility] LTAC ICU for further care. IMAGING: Initial chest x-ray shows diffuse bilateral airspace opacities representing severe pulmonary edema and/or pneumonia. Multiple chest x-rays were carried out while in the facility for evaluation of recovery. Abdomen x-rays show no acute radiographic abnormality identified within the abdomen. His final chest x-ray was reported on 08/23/2019. The impression was no significant change in the diffuse bilateral pulmonary opacity. Cultures, bronchial washings as mentioned was positive for Eloisa parapsilosis. Blood cultures were negative. Urine cultures were negative. LABORATORY STUDIES: Begins with hematology showing white cell count elevated at 22,700, H and H were 10.9 and 32.0. CBCs were followed up. White cell counts continued to improve, final study was at 10,000. H and H's were stable at 7.5 and 23.4, final study 7.9 and 24.3. Platelets were as low as 114,000, final study was 133,000. Influenza A and B studies were negative. Urinalysis unremarkable. Chemistries shows initial panel electrolytes to be normal. Kidney function stable. Glucose 154. Followup chemistry shows a BNP of 411.5, final BNP was at 717. The potassium was remaining stable. Blood sugars were as high as 151. Carbon dioxide was as high as 41. Final electrolytes were stable with final CO2 of 36, BUN 48, creatinine 1.10, glucose 174. As mentioned, the patient will be requiring further recovery care and the patient was transferred to [facility] LTAC ICU continuing on vent. We will continue to have Dr. Ortiz follow up from a Pulmonary standpoint. Dr. Caceres to follow up from Infectious Disease standpoint. The patient is currently being transferred with a temperature of 102. Tylenol suppository was given prior to transfer to address the temperature. He will continue on tube feedings at that location. The patient is bed-bound. We will be evaluating the patient daily by making our hospital rounds. Adjustments to be made accordingly. We will continue in contact and discussion of the case with Dr. Ortiz as well as Dr. Caceres. We will continue to maintain the DNR protocol per family wishes. Dictated by DONTE Briceno Martín Damon MD CC/MODL /[id number]
== END 2019-08-23 15:15 | DRG 870 ==
LOC: ER 18:27 → ERHOLD 21:21 → ICU 23:43
PROC: 06HY33Z Insertion of Infusion Device into Lower Vein, Percutaneous Approach (ICD-10-PCS; 2019-08-13)
PROC: 0BJ08ZZ Inspection of Tracheobronchial Tree, Via Natural or Artificial Opening Endoscopic (ICD-10-PCS; 2019-08-14)
PROC: 0B9H8ZX Drainage of Lung Lingula, Via Natural or Artificial Opening Endoscopic, Diagnostic (ICD-10-PCS; 2019-08-14)
PROC: 5A1955Z Respiratory Ventilation, Greater than 96 Consecutive Hours (ICD-10-PCS; principal; 2019-08-14 10:30)
PROC: 06HY33Z Insertion of Infusion Device into Lower Vein, Percutaneous Approach (ICD-10-PCS; 2019-08-20)
DX: A41.9 Sepsis, unspecified organism (principal); J18.9 Pneumonia, unspecified organism; I50.23 Acute on chronic systolic (congestive) heart failure; R65.21 Severe sepsis with septic shock; J96.21 Acute and chronic respiratory failure with hypoxia; E87.2 Acidosis; I24.0 Acute coronary thrombosis not resulting in myocardial infarction; Z66 Do not resuscitate; I95.9 Hypotension, unspecified; Y95 Nosocomial condition; K59.00 Constipation, unspecified; Z51.5 Encounter for palliative care; E66.01 Morbid (severe) obesity due to excess calories; Z68.32 Body mass index [BMI] 32.0-32.9, adult; I25.10 Atherosclerotic heart disease of native coronary artery without angina pectoris; Z95.5 Presence of coronary angioplasty implant and graft; E78.5 Hyperlipidemia, unspecified; Z99.81 Dependence on supplemental oxygen; I35.0 Nonrheumatic aortic (valve) stenosis; I11.0 Hypertensive heart disease with heart failure; E11.9 Type 2 diabetes mellitus without complications; J84.112 Idiopathic pulmonary fibrosis; F41.9 Anxiety disorder, unspecified
CPT/HCPCS: 31500; 31622; 36415; 36556; 36569; 36600; 51700; 71045; 74018; 80048; 80053; 80202; 81001; 82550; 82553; 82805; 82948; 83605; 83735; 83880; 84100; 84484; 85025; 85597; 85610; 85613; 85651; 85730; 86021; 86039; 86160; 86635; 87040; 87086; 87102; 87116; 87205; 87206; 87335; 87400; 87449; 88112; 88305; 89051; 93005; 94002; 94003; 94760; 96361; 96365; 96366; 99285; C1751; J0171; J0456; J0461; J0692; J1450; J1650; J1940; J2250; J2920; J2930; J3010; J3370; J7030; J7050